=== PATIENT | female | born 1950 | race Caucasian/White ===

== ENCOUNTER 2020-04-06 13:30 | Outpatient (CLI) | payer MEDICARE, SELFPAY ==
--- NOTE | 2020-04-06 14:32 | PFTS_ITS ---
Date of Study:04/06/20 Date of Dictation: MECHANICS: Forced vital capacity (FVC) is reduced. Forced expiratory volume in one second (FEV1) is reduced. FEV1/FVC is normal. FLOW VOLUME LOOP: Narrow. LUNG VOLUMES: Total lung capacity (TLC) is normal. Residual volume (RV) is . DIFFUSING CAPACITY FOR CARBON MONOXIDE: Mildly reduced. INTERPRETATION: The pulmonary function tests are consistent with mild restriction. There is no significant postbronchodilator response. Lung volumes are normal. Gas exchange (DLCO) is mildly reduced. MTDD
== END 2020-04-06 13:31 | disposition home or self-care (01) ==
LOC: RT 13:33
PROVIDERS: PCP Family Medicine; Visit Provider Family Medicine
DX: J44.9 Chronic obstructive pulmonary disease, unspecified (principal)
CPT/HCPCS: 94060; 94726; 94729; J7611

== ENCOUNTER 2020-05-01 01:02 | Inpatient (IN) | payer MEDICARE, SELFPAY ==
[2020-05-01] VITALS (99 sets, daily range): BP systolic 103–182; BP diastolic 45–99; PULSE 80–139; RESP 14–31; TEMP 36.3–36.8; O2SAT 81–100; BMI 29.1
--- NOTE | 2020-05-01 01:08 | ECG_ITS ---
[facility] Test Date: 2020-05-01 Pat Name: Suki Gates Department: Room: Gender: Female Internal Medicine Hospitalist: : 1950 Requested By: Edilson Zafar Order Number: [id number] Tameka MD: Laureano Dumont M.D. Measurements Intervals [place] Rate: 114 P: 56 [place]: 124 QRS: 39 QRSD: 140 T: 203 QT: 375 QTc: 517 Interpretive Statements SINUS TACHYCARDIA WITH OCCASIONAL VENTRICULAR PREMATURE COMPLEXES WITH OCCASIONAL SUPRAVENTRICULAR PREMATURE COMPLEXES LEFT BUNDLE BRANCH BLOCK [120+ ms QRS DURATION, 80+ ms Q/S IN V1/V2, 85+ ms R IN I/aVL/V5/V6] No previous ECG available for comparison Electronically Signed On 05-02-2020 16:23:18 CDT by Laureano Dumont M.D. [id number]
--- NOTE | 2020-05-01 01:09 | W.ED.SOB ---
HPI - SOB/Dyspnea General: Chief Complaint: General Medical Stated Complaint: RESP DISTRESS Time Seen by Provider: 05/01/20 01:03 Source: EMS Mode of arrival: EMS Limitations: altered mental status History of Present Illness: HPI Narrative: 69-year-old female who has a history of COPD brought in by EMS for a severe COPD dating attack. Per EMS patient's states that she has been having shortness of breath just before calling. When EMS arrived she is in severe distress. Patient given Solu-Medrol in route. Patient's currently quite tachypneic and unable to speak at this time she will shake her head to me but is in severe distress. I had respiratory at bedside place patient on BiPAP. Per EMS states she is had no cough or fever and this happened suddenly. MD elicited complaint: shortness of breath Pertinent past history: COPD Review of Systems General: Reports: ROS unobtainable due to medical condition Physical Exam Const: COMMON NORMALS: negative for patient oriented x3 GENERAL APPEARANCE: in distress and ill appearing HENMT: COMMON NORMALS: normocephalic and atraumatic HEAD & SCALP: normocephalic and atraumatic Eye: COMMON NORMALS: Equal, round and reactive pupils present and EOMs intact bilaterally PUPIL: Yes Equal, round and reactive pupils present Neck/C-Spine: COMMON NORMALS: full ROM and supple Chest: COMMONS NORMALS: normal inspection of the chest and normal palpation of entire chest wall Resp: EFFORT & INSPECTION: Yes tachypneic, Yes respiratory distress and Yes uses accessory muscles AUSCULTATION: wheezes and diminished lung sounds Cardio: COMMON NORMALS: regular rhythm and No murmurs present (Cardio) RATE: tachycardic RHYTHM: regular rhythm GI: COMMON NORMALS: Normal to inspection, nondistended, normoactive bowel sounds present, Soft to palpation, non-tender and no masses PALPATION: Yes Soft to palpation Extremity: COMMON NORMALS: normal to inspection and full ROM Neuro: COMMON NORMALS: negative for patient oriented x3 Psych: COMMON NORMALS: mental status grossly normal and cooperative; negative for Normal thought process present THOUGHT PROCESS: abnormal Skin: COMMON NORMALS: no rashes or lesions noted and no wounds GENERAL SKIN EXAM: no rashes or lesions noted Course Vital Signs: Vital signs: Vital Signs Pulse Rate 115 H 05/01/20 01:15 Respiratory Rate 25 H 05/01/20 01:15 Blood Pressure 130/72 05/01/20 01:03 Pulse Oximetry 94 05/01/20 01:15 MDM - SOB/Dyspnea MDM Narrative: Medical decision making narrative: Suki presents here with respiratory distress likely from COPD versus pneumonia. X-ray does have an atypical appearance and will get blood cultures and give antibiotics. Also will test for coronavirus. Patient is improving here on BiPAP and will admit to the ICU. I spoke to hospitalist who will admit. Lab Data: Labs: Lab Results 05/01/20 05/01/20 05/01/20 Range/Units 01:10 01:12 01:12 WBC 12.7 H (4.0-10.0) 10^3/ uL RBC 4.42 (4.1-5.3) 10^6/u L Hgb 12.3 (11.5-15.3) g/dL Hct 40.8 (37.0-47.0) % MCV 92.3 (81-99) fL MCH 27.8 L (28.0-34.0) pg MCHC 30.1 (30.0-36.0) g/dL RDW 13.5 (12.1-15.1) % Plt Count 361 (130-400) 10^3/c mm MPV 10.6 H (7.4-10.4) fL Neut % (Auto) 35.4 % Lymph % (Auto) 51.2 % Russell % (Auto) 5.8 % Eos % (Auto) 6.5 % Baso % (Auto) 0.9 % Neut # (Auto) 4.49 (1.8-7.7) 10^3/u L Lymph # (Auto) 6.5 H (0.8-4.8) 10^3/u L Russell # (Auto) 0.7 (0.2-0.9) 10^3/u L Eos # (Auto) 0.8 (0.0-0.8) 10^3/u L Baso # (Auto) 0.1 (0.0-0.1) 10^3/u L Nucleated RBC % (a uto) 0 % Nucleated RBCs # 0.0 /100WBC PT 12.80 (10.5-13.3) SECO NDS INR 0.94 (0.8-1.2) Specimen Type Arterial Sample Site Radial, right ABG pH 7.19 L (7.35-7.45) ABG pCO2 47.3 H (35-45) mmHg ABG pO2 95.4 (80.0-100.0) mmH g ABG HCO3 18.1 L (22-26) mmol/L ABG Base Excess -10.0 L (-2.0-2.0) mmol/ L Jhony Test Pos Hematocrit 39.9 (37-47) % Hgb O2 Saturation 94.5 L (95-100) % Carboxyhemoglobin 0.5 (0.4-20.1) %THgb Methemoglobin 0.8 (0.4-1.5) % Total Hemoglobin 13.0 (12-16) g/dL O2 Delivery Device Bipap FiO2 60.0 % Biological Inspector ID [email or web address] Sodium (136-145) mmol/L Potassium (3.5-5.1) mmol/L Chloride (98-107) mmol/L Carbon Dioxide (22-29) mmol/L Anion Gap (5-19) BUN (8-23) mg/dL Creatinine (0.5-0.9) mg/dL GFR Calculation (90-130) mL/min Glucose (65-115) mg/dL Calculated Osmolal ity (285-295) mOsm/k g Calcium (8.5-10.5) mg/dL Total Bilirubin (0.15-1.2) mg/dL AST (0-32) U/L ALT (0-33) U/L Alkaline Phosphata se (35-105) IU/L NT-Pro-B Natriuret Pep (0-125) pg/mL Total Protein (6.6-8.7) g/dL Albumin (3.5-5.2) g/dL Globulin (1.3-4.6) g/dL 05/01/20 Range/Units 01:12 WBC (4.0-10.0) 10^3/ uL RBC (4.1-5.3) 10^6/u L Hgb (11.5-15.3) g/dL Hct (37.0-47.0) % MCV (81-99) fL MCH (28.0-34.0) pg MCHC (30.0-36.0) g/dL RDW (12.1-15.1) % Plt Count (130-400) 10^3/c mm MPV (7.4-10.4) fL Neut % (Auto) % Lymph % (Auto) % Russell % (Auto) % Eos % (Auto) % Baso % (Auto) % Neut # (Auto) (1.8-7.7) 10^3/u L Lymph # (Auto) (0.8-4.8) 10^3/u L Russell # (Auto) (0.2-0.9) 10^3/u L Eos # (Auto) (0.0-0.8) 10^3/u L Baso # (Auto) (0.0-0.1) 10^3/u L Nucleated RBC % (a uto) % Nucleated RBCs # /100WBC PT (10.5-13.3) SECO NDS INR (0.8-1.2) Specimen Type Sample Site ABG pH (7.35-7.45) ABG pCO2 (35-45) mmHg ABG pO2 (80.0-100.0) mmH g ABG HCO3 (22-26) mmol/L ABG Base Excess (-2.0-2.0) mmol/ L Jhony Test Hematocrit (37-47) % Hgb O2 Saturation (95-100) % Carboxyhemoglobin (0.4-20.1) %THgb Methemoglobin (0.4-1.5) % Total Hemoglobin (12-16) g/dL O2 Delivery Device FiO2 % Biological Inspector ID Sodium 141 (136-145) mmol/L Potassium 3.6 (3.5-5.1) mmol/L Chloride 106 (98-107) mmol/L Carbon Dioxide 21 L (22-29) mmol/L Anion Gap 17.6 (5-19) BUN 19 (8-23) mg/dL Creatinine 1.1 H (0.5-0.9) mg/dL GFR Calculation 49.4 L (90-130) mL/min Glucose 390 H (65-115) mg/dL Calculated Osmolal ity 305 H (285-295) mOsm/k g Calcium 8.8 (8.5-10.5) mg/dL Total Bilirubin 0.5 (0.15-1.2) mg/dL AST 18 (0-32) U/L ALT 11 (0-33) U/L Alkaline Phosphata se 92 (35-105) IU/L NT-Pro-B Natriuret Pep 2532 H (0-125) pg/mL Total Protein 6.4 L (6.6-8.7) g/dL Albumin 4.2 (3.5-5.2) g/dL Globulin 2.2 (1.3-4.6) g/dL Imaging Data^: CXR: Radiologist's impression: [address] [place] [address] XRay Report Signed Patient: Suki Gates Unit #: [id number] : 1950 Age/Sex: 69 / F ADM Date: 05/01/20 Loc: ER Room/Bed: Attending Dr: Ordering Provider/Ordering MD: Edilson Zafar MD Date of Service: 05/01/20 Procedure(s): XR chest 1V portable [id number] Accession Number(s): [id number] Report Number: [id number] PROCEDURE INFORMATION: Exam: XR Chest, 1 View Exam date and time: 05/01/2020 1:30 AM Age: 69 years old Clinical indication: Dyspnea; Additional info: SOB TECHNIQUE: Imaging protocol: XR of the chest Views: 1 view. COMPARISON: No relevant prior studies available. FINDINGS: Lungs: There is ill-defined reticular nodular opacity diffusely bilaterally. There is partial obscuration of the bilateral hemidiaphragms. Pleural space: There is blunting the left lateral costophrenic sulcus. Heart/Mediastinum: Cardiomediastinal contours are unremarkable. Bones/joints: Bones are unremarkable. Other findings: There is no pneumothorax. XR/XR chest 1V portable [id number] IMPRESSION: 1. Nonspecific bilateral pulmonary opacity. Possible pulmonary edema, atypical infection or interstitial disease. 2. Left pleural effusion. EKG Data^: EKG 1: Attestation: I personally reviewed and interpreted this EKG as follows: EKG Interpretation Date: 05/01/20 EKG interpretation time: 01:25 Interpretation: sinus tach hr [address] or t wave abnormalities lbbb qrs 140 qtc 442 Critical Care Time Critical Care Time: Critical Care Time: Yes Total Critical Care Time: 35 Attestation: This case had a high probability of a clinically significant, sudden, or life threatening deterioration of this patient's condition which required my full and direct attention, intervention and personal management. Discharge Plan Discharge Patient Disposition: Admitted As Inpatient Clinical Impression: Respiratory distress, COPD exacerbation Condition: Stable Referrals: Gregory Barksdale Jr, MD [Primary Care Provider] - Coding Level of Care Code ED Net Developer Software Engineer C for Chg Fwd Exam Comprehensive
[2020-05-01] MEDS: ipratropium-albuterol 3 mL Neb INHALATION ×4 (01:14→20:09)
[2020-05-01 01:18] LABS: Basophils # 0.1 10^3/uL (0.0-0.1); Basophils % 0.9 %; Eosinophils # 0.8 10^3/uL (0.0-0.8); Eosinophils % 6.5 %; Hematocrit 40.8 % (37.0-47.0); Hemoglobin 12.3 g/dL (11.5-15.3); Lymphocytes # 6.5 10^3/uL (0.8-4.8); Lymphocytes % 51.2 %; Mean Corpuscular HGB Conc 30.1 g/dL (30.0-36.0); Mean Corpuscular Hemoglobin 27.8 pg (28.0-34.0); Mean Corpuscular Volume 92.3 fL (81-99); Mean Platelet Volume 10.6 fL (7.4-10.4); Monocytes # 0.7 10^3/uL (0.2-0.9); Monocytes % 5.8 %; Neutrophils # 4.49 10^3/uL (1.8-7.7); Neutrophils % 35.4 %; Nucleated Red Blood Cells % 0 %; Platelet Count 361 10^3/cmm (130-400); Positive M 1; Red Blood Count 4.42 10^6/uL (4.1-5.3); Red Cell Distribution Width 13.5 % (12.1-15.1); White Blood Count 12.7 10^3/uL (4.0-10.0)
[2020-05-01 01:19] LABS: ABG PCO2 47.3 mmHg (35-45); ABG PH Result 7.19 (7.35-7.45); Arterial Blood Gas Hematocrit 39.9 % (37-47); Blood Gas Allen Test Pos; Blood Gas Sample Site Radial, right; Blood Gas Sample Type Arterial; Carboxyhemoglobin 0.5 %THgb (0.4-20.1); HCO3 ABG 18.1 mmol/L (22-26); HGB O2 Sat 94.5 % (95-100); Methemoglobin 0.8 % (0.4-1.5); Oxygen Device BIPAP; PO2 ABG 95.4 mmHg (80.0-100.0)
[2020-05-01 01:33] LABS: INR 0.94 (0.8-1.2)
[2020-05-01 01:43] LABS: Slide Review Slide Review Perform
[2020-05-01 01:49] LABS: Alanine Aminotransferase 11 U/L (0-33); Albumin Level 4.2 g/dL (3.5-5.2); Alkaline Phosphatase 92 IU/L (35-105); Anion Gap 17.6 (5-19); Aspartate Amino Transferase 18 U/L (0-32); Blood Urea Nitrogen 19 mg/dL (8-23); Calcium 8.8 mg/dL (8.5-10.5); Carbon Dioxide 21 mmol/L (22-29); Chloride 106 mmol/L (98-107); Globulin 2.2 g/dL (1.3-4.6); Glomerular Filtration Rate 49.4 mL/min (90-130); Glucose 390 mg/dL (65-115); NT Pro B Type Natriuretic Pept 2532 pg/mL (0-125); Osmolality Calculated 305 mOsm/kg (285-295); Potassium 3.6 mmol/L (3.5-5.1); Sodium 141 mmol/L (136-145); Total Bilirubin 0.5 mg/dL (0.15-1.2); Total Protein 6.4 g/dL (6.6-8.7)
[2020-05-01] MEDS: insulin regular-human 100 units/1 mL 5 UNIT IVP (02:00)
[2020-05-01] MEDS: piperacillin-tazobactam 3.375 GM in sodium chloride 0.9% (plus) 50 ML IV ×3 (03:18→20:05)
--- NOTE | 2020-05-01 03:20 | PC.NURSE ---
i have reviewed assessment and agree
[2020-05-01] MEDS: FUROsemide 10 mg/mL SDV 4mL 40 MG IVP ×2 (03:21→17:01)
[2020-05-01] MEDS: sodium chloride 0.9% 1,000 ML 999 ML IV (04:00)
[2020-05-01] MEDS: vancomycin 1,000 MG in sodium chloride 0.9% 250 ML 250 MG IV (04:20)
--- NOTE | 2020-05-01 04:30 | P.HP_ITS ---
Providers/Chief Complaint Admitting Physician: Guillaume Ramirez Primary Care Provider: Gregory Barksdale Jr, MD Chief Complaint: RESP DISTRESS History of Present Illness Suki Gates is a 69 year old lady with mild restrictive lung disease, insomnia, recently quit smoking, was brought to emergency department for evaluation due to progressive shortness of breath, and subsequently also acute encephalopathy, decreased responsiveness. She reports last night she was feeling more short of breath than usual, and used her inhaler. She reports that she gets wheezing intermittently, although also recently her sleep medications have been changed, and she reports that her tells her that after taking Ambien and trazodone her breathing usually becomes more relaxed at night, and wheezing resolves. She reports that she did so last night also, however, noticed that her breathing actually progressively got worse, and subsequently she had decreased responsiveness, confusion. EMS was called. She was noted to be significantly hypoxic, was started on nonrebreather mask initially, and ER started on BiPAP support. With noted pulmonary edema/scattered infiltrates on chest x-ray. With combined respiratory and metabolic acidosis on ABG. Mild leukocytosis of 12.7. Sinus tachycardia on presentation. She denies any chest pain. She has been having some mild non-productive cough. She says that recently she has been working out in a public gym. She says she would take hours where there would be fewer people. Would wiped out and equipment before hand. Also recently had a long drive to and [place] from [place]. In ER she was started on BiPAP support, received a dose of IV Lasix, started on empiric antibiotics. She is doing better. Currently weaned down to 10 L on nonrebreather mask. She is awake, alert, oriented, with full insight currently. Daughter is at bedside. Both in good spirits. Review of Systems Const: Denies: fever(s), chills, body aches or malaise Eyes: Denies: change in vision or eye redness ENMT: Denies: throat pain, oral sores or ear or mastoid pain Card: Denies: chest pain, edema, pre-syncope or dyspnea on exertion Resp: Reports: dyspnea and non-productive cough; Denies: productive cough, change in phlegm color or hemoptysis GI: Denies: abdominal pain, nausea, vomiting, diarrhea, constipation, hematochezia or melena : Denies: flank pain, urinary frequency or hematuria Musc: Denies: back pain, joint swelling or joint redness Skin/Breast: Denies: rash, sores or new lesions Neuro: Denies: headache(s), numbness in extremities, weakness in extremities, dizziness, confusion or seizure-like activity Endo: Denies: polyuria or polydipsia Max/Lymph: Denies: easy bleeding or purpura All/Imm: Denies: urticaria, throat swelling or tongue swelling Medications/Allergies Allergies Allergy/AdvReac Type Severity Reaction Status Date / Time No Known Allergies Allergy Verified 05/01/20 01:15 PFSH Acute PFSH: Medical History (Updated 05/01/20 @ 08:37 by Guillaume Ramirez MD) Former smoker Insomnia Restrictive lung disease Surgical History History of colonoscopy Family History Mother Congestive heart failure Social History Smoking and tobacco status: former smoker Quit status (tobacco): has quit using tobacco Former quit date comment: 3 months ago Alcohol intake: never Substance/Drug Use: never Lives independently: Yes Household members: spouse Marital status: Current occupational status: retired Vitals/I&O/Wt Last Vital Signs Pulse 99 05/01/20 03:19 Resp 28 H 05/01/20 03:19 BP 120/63 05/01/20 03:19 Pulse Ox 99 05/01/20 03:19 Weight last 48 hrs Weight 79.379 kg Physical Exam Const: COMMON NORMALS: no acute distress and patient oriented x3 NUTRITIONAL APPEARANCE: overweight HENMT: COMMON NORMALS: oropharynx normal Neck/C-Spine: COMMON NORMALS: no JVD Resp: COMMON NORMALS: normal respiratory effort AUSCULTATION: rales Cardio: COMMON NORMALS: no JVD, regular rhythm, S1 normal heart sound present, S2 normal heart sound present and No murmurs present (Cardio) RHYTHM: regular rhythm HEART SOUNDS: S1 normal heart sound present and S2 normal heart sound present GI: COMMON NORMALS: Normal to inspection, nondistended, normoactive bowel sounds present, Soft to palpation and non-tender PALPATION: Yes Soft to palpation Extremity: COMMON NORMALS: no joint enlargement and no pedal edema Neuro: COMMON NORMALS: patient oriented x3 and moves all extremities Skin: COMMON NORMALS: no rashes or lesions noted GENERAL SKIN EXAM: no rashes or lesions noted Data : 05/01/20 01:12 05/01/20 01:12 Micro: Microbiology 05/01/20 03:00 Blood Culture - Preliminary Blood SPECIMEN COLLECTED 05/01/20 01:12 Blood Culture - Preliminary Blood SPECIMEN COLLECTED A&P Assessment and plan (1) Acute on chronic respiratory failure with hypoxia and hypercapnia: Acute respiratory failure with hypoxia and hypercapnia. Very hypoxic at home. Per and respiratory distress. EMS had to start her on nonrebreather. In ER started on BiPAP support. Received Lasix, empiric antibiotics. Showed significant improvement, during my visit already was transitioned to nonrebreather, and saturating 100%. Rate decreased down to 8 L/min. Requested repeat ABG. Appears to be in congestive heart failure, with pulmonary congestion and edema, elevated BNP. Ordered troponin EKG series to rule out acute ischemia as the cause. Since her mental status now significantly improved, she is able to provide her history. Her daughter is by the bedside corroborating her story. She denies any chest pain or pressure. Got more short of breath over the evening, took inhaler, and subsequently took her sleep medications in preparation closely. Her then noticed she was not breathing right, becoming more short of breath, and respiratory distress, and confused/less responsive. She does report occasionally previously being noticed by her that she does not breathe well. She says that this has improved since she started on s leep medications with Ambien and trazodone. Previously also on Klonopin, but this was discontinued. If sleep apnea is present, some of the pulmonary edema may be explained by this as well. Appears to also have COPD exacerbation with some cough, although is not particularly productive of sputum. There is still also possible underlying pneumonia, with bilateral infiltrates. Possibly atypical. For now will provide empiric coverage with antibiotics. Check rapid flu, COVID-19. Collect sputum fo r culture if possible. Bacterial antigens. MRSA PCR. Blood culture collected. Appears to have combination respiratory and metabolic acidosis. Possibly sepsis, with lactic acidosis of 4. For COPD exacerbation received a dose of steroids in EMS on the way here. We will continue Solu-Medrol. Continue antibiotics as above. Breathing treatments. Given sinus tachycardia, hypoxic respiratory failure, recent prolonged car trip to a casino, dicussed with her and daughter that for now until she is stable enough to have chest imaging to exclude PE will be empirically enticoagulated with Lovenox. Discussed risks of bleeding vs risks of untreated PE. Both patient and daughter agreeable at this time. Discussed her condition and further assessment and plan and both verbalized understanding and agreement. All questions answered to their satisfaction. Status: Acute (2) COPD exacerbation: As above. Status: Acute (3) Congestive heart failure: Appears to be in congestive heart failure with congestive changes on chest x-ray, pulmonary edema, elevated BNP in the setting of near normal renal function. No known prior congestive heart failure in herself, but does report multiple instances in her family. As above requested troponin EKG to rule out acute ischemia. Has no chest pain. Assess TTE. Continue Lasix. Additional evaluation depending on findings. Status: Acute (4) Insomnia: Takes Ambien, trazodone. Previously also taking Klonopin, says stopped taking this currently. Discussed with her concern of multiple medications used for sleep, which can also affect mental status. Given noticed that when she does not take medications sometimes breathing becomes irregular, discussed would benefit from a sleep study. She and daughter verbalized understanding. Status: Acute (5) Restrictive lung disease: Noted on last PFT, mild pulmonary restriction. Consider additional outpatient follow-up. Status: Acute (6) Metabolic acidosis: Lactic acidosis, LA 4. Difficult to say exact cause. Concern for possible hypoperfusion, perhaps secondary to hypoxia, as well as congestive heart failure. Assessment and treatment as above. Possible severe sepsis se condary to pneumonia, although otherwise has no fever, only dry cough. Reflex lactate not yet resulted. Did receive a fluid bolus on presentation, however, will limit any further fluids given congestive heart failure, pulmonary congestive changes and edema. Status: Acute (7) Respiratory acidosis: COPD exacerbation, suspect perhaps also degree of hypoventilation secondary to sleep medications. As above. Status: Acute (8) Acute kidney injury: Mild acute kidney injury. Creatinine up to 1.1. Possibly secondary to acute CHF. Monitor for now. Does have hyperglycemia is on presentation. Will assess for possible diabetes due to which may be predisposed to CKD. Status: Acute (9) Lactic acid acidosis: As above. Status: Acute (10) Hyperglycemia: Does not have diabetes. On presentation with noted hyperglycemia, glucose 390. Concern for possible undiagnosed diabetes. Did receive a dose of steroid IV on the way to the hospital. We will check A1c. Mild insulin sliding scale added due to severity of hyperglycemia. Consistent carbohydrate diet. For now clear liquids due to respiratory failure. Status: Acute Additional A&P Information Quit smoking 3 months ago. Possible sleep apnea: Reports occasionally, prior to starting sleep medications, was having episodes where she would stop breathing at night per her . May benefit from outpatient sleep study. Patient daughter verbalized understanding. Attestations Medical Necessity Statement*: Admission of over 2 midnights is going to needed for assessment management of acute respiratory failure with hypoxia, hypercapnia, acute CHF, pneumonia, COPD exacerbation, metabolic acidosis, possible sepsis, mild acute kidney injury, and other problems outlined above. Coding Level of Care Code Acute Crisis Manager for [facility] Fwd Exam Comprehensive Diagnoses Acute on chronic respiratory failure with hypoxia and hypercapnia J96.21; J96.22 COPD exacerbation J44.1 Congestive heart failure I50.9 Insomnia G47.00 Restrictive lung disease J98.4 Metabolic acidosis E87.2 Respiratory acidosis E87.2 Acute kidney injury N17.9 Lactic acid acidosis E87.2 Hyperglycemia R73.9
--- NOTE | 2020-05-01 05:03 | PC.NURSE ---
indwelling gannon request denied due to pt's improved mentation and high risk of infection. Pt able to ambulate to commode with assist
--- NOTE | 2020-05-01 05:22 | PC.NURSE ---
pt mentation status improved from unresponsive to A&O x3
--- NOTE | 2020-05-01 05:40 | ECG_ITS ---
[facility] Test Date: 2020-05-01 Pat Name: Suki Gates Department: Room: ICU02 Gender: Female Healthcare Specialist: : 1950 Requested By: Guillaume Ramirez Order Number: [id number] Reading MD: Laureano Dumont M.D. Measurements Intervals [place] Rate: 96 P: 35 [place]: 135 QRS: -4 QRSD: 140 T: 114 QT: 408 QTc: 518 Interpretive Statements SINUS RHYTHM LEFT BUNDLE BRANCH BLOCK [120+ ms QRS DURATION, 80+ ms Q/S IN V1/V2, 85+ ms R IN I/aVL/V5/V6] Compared to ECG 05/01/2020 01:25:27 Sinus tachycardia no longer present Ventricular premature complex(es) no longer present Electronically Signed On 05-02-2020 16:23:42 CDT by Laureano Dumont M.D. [id number]
[2020-05-01] MEDS: enoxaparin 80 mg/0.8 mL Syringe SUBCUT ×2 (07:05→18:11)
--- NOTE | 2020-05-01 07:39 | ECG_ITS ---
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 Measurements Intervals [place] Rate: 72 P: AK: -1 QRS: -29 QRSD: 126 T: -28 QT: 466 QTc: 512 Interpretive Statements UNCERTAIN IRREGULAR RHYTHM BORDERLINE LEFT AXIS DEVIATION [QRS AXIS < -20] RIGHT BUNDLE BRANCH BLOCK [120+ ms QRS DURATION, UPRIGHT V1, 40+ ms S IN I/aVL/V4/V5/V6] WARNING: DATA QUALITY MAY AFFECT INTERPRETATION Compared to ECG 05/01/2020 06:16:30 Right bundle-branch block now present Sinus rhythm no longer present Left bundle-branch block no longer present Electronically Signed On 05-02-2020 16:28:22 CDT by Laureano Dumont M.D. [id number]
[2020-05-01 09:00] LABS: Glucose Point of Care 152 mg/dL (70-110)
[2020-05-01 09:32] LABS: Troponin(5th) Baseline 34 ng/L (0-10)
[2020-05-01 09:40] LABS: Estmated Average Glucose 108; Hemoglobin A1C 5.4 % (4.0-6.0)
[2020-05-01 11:08] LABS: Troponin 5 2HR 22.88 ng/L (0-10)
--- NOTE | 2020-05-01 11:39 | ECG_ITS ---
[facility] Test Date: 2020-05-01 Pat Name: Suki Gates Department: Room: ICU02 Gender: Female Flatbed Driver: : 1950 Requested By: Guillaume Ramirez Order Number: [id number] Reading MD: Laureano Dumont M.D. Measurements Intervals [place] Rate: 86 P: 36 OR: 139 QRS: 10 QRSD: 143 T: 266 QT: 433 QTc: 521 Interpretive Statements SINUS RHYTHM WITH OCCASIONAL SUPRAVENTRICULAR PREMATURE COMPLEXES LEFT BUNDLE BRANCH BLOCK [120+ ms QRS DURATION, 80+ ms Q/S IN V1/V2, 85+ ms R IN I/aVL/V5/V6] Compared to ECG 05/01/2020 07:59:52 Left bundle-branch block now present Right bundle-branch block no longer present Electronically Signed On 05-02-2020 16:29:07 CDT by Laureano Dumont M.D. [email or web address]/store/[id number]
[2020-05-01 12:11] LABS: Glucose Point of Care 137 mg/dL (70-110)
[2020-05-01 15:33] LABS: Troponin 5 6HR 20.37 ng/L (0-10)
--- NOTE | 2020-05-01 16:00 | PC.RESP ---
Pulmonary Rehab information sent to patient.
--- NOTE | 2020-05-01 16:01 | PC.RESP ---
Pulmonary Rehab information and maintaining smoking cessation information sent to patient.
[2020-05-01 17:26] LABS: Glucose Point of Care 155 mg/dL (70-110)
--- NOTE | 2020-05-01 21:00 | PC.NURSE ---
Received report from SYED Figueroa. Patient is resting comfortably. Vital signs stable. Bed in lowest position, call light in place. No concerns at this time.
[2020-05-01 21:46] LABS: Glucose Point of Care 144 mg/dL (70-110)
--- NOTE | 2020-05-01 23:11 | P.PN_ITS ---
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 Very hypoxic at home. Per and respiratory distress. EMS had to start her on nonrebreather. In ER started on BiPAP support. Received Lasix, empiric antibiotics. Showed significant improvement, during my visit already was transitioned to nonrebreather, and saturating 100%. Rate decreased down to 8 L/min. Requested repeat ABG. Appears to be in congestive heart failure, with pulmonary congestion and edema, elevated BNP. Ordered troponin EKG series to rule out acute ischemia as the cause. Since her mental status now significantly improved, she is able to provide her h istory. Her daughter is by the bedside corroborating her story. She denies any chest pain or pressure. Got more short of breath over the evening, took inhaler, and subsequently took her sleep medications in preparation closely. Her then noticed she was not breathing right, becoming more short of breath, and respiratory distress, and confused/less responsive. She does report occasionally previously being noticed by her that she does not breathe well. She says that this has improved since she started on sleep medications with Ambien and trazodone. Previously also on Klonopin, but this was discontinued. If sleep apnea is present, some of the pulmonary edema may be explained by this as well. Appears to also have COPD exacerbation with some cough, although is not particul charlene productive of sputum. There is still also possible underlying pneumonia, with bilateral infiltrates. Possibly atypical. For now will provide empiric coverage with antibiotics. Check rapid flu, COVID-19. Collect sputum for culture if possible. Bacterial antigens. MRSA PCR. Blood culture collected. Appears to have combination respiratory and metabolic acidosis. Possibly sepsis, with lactic acidosis of 4. For COPD exacerbation received a dose of steroids in EMS on the way here. We wi ll continue Solu-Medrol. Continue antibiotics as above. Breathing treatments. Given sinus tachycardia, hypoxic respiratory failure, recent prolonged car trip to a [employer], dicussed with her and daughter that for now until she is stable enough to have chest imaging to exclude PE will be empirically enticoagulated with Lovenox. Discussed risks of bleeding vs risks of untreated PE. Both patient and daughter agreeable at this time. Discussed her condition and further assessment and plan and both verbalized understanding and agreement. All questions answered to their satisfaction. Status: Acute (2) COPD exacerbation: As above. Status: Acute (3) Congestive heart failure: Appears to be in congestive heart failure with congestive changes on chest x-ray, pulmonary edema, elevated BNP in the setting of near normal renal fun ction. No known prior congestive heart failure in herself, but does report multiple instances in her family. As above requested troponin EKG to rule out acute ischemia. Has no chest pain. Assess TTE. Continue Lasix. Additional evaluation depending on findings. Status: Acute (4) Insomnia: Takes Ambien, trazodone. Previously also taking Klonopin, says stopped taking this currently. Discussed with her concern of multiple medications used for sleep, which can also affect mental status. Given noticed that when she does not take medications sometimes breathing becomes irregular, discussed would benefit from a sleep study. She and daughter verbalized understanding. Status: Acute (5) Restrictive lung disease: Noted on last PFT, mild pulmonary restriction. Consider additional outpatient follow-up. Status: Acute (6) Metabolic acidosis: Lactic acidosis, LA 4. Difficult to say exact cause. Concern for possible hypoperfusion, perhaps secondary to hypoxia, as well as congestive heart failure. Assessment and treatment as above. Possible severe sepsis secondary to pneumonia, although otherwise has no fever, only dry cough. Reflex lactate not yet resulted. Did receive a fluid bolus on presentation, however, will limit any further fluids given congestive heart failure, pulmonary congestive changes and edema. Status: Acute (7) Respiratory acidosis: COPD exacerbation, suspect perhaps also degree of hypoventilation secondary to sleep medications. As above. Status: Acute (8) Acute kidney injury: Mild acute kidney injury. Creatinine up to 1.1. Possibly secondary to acute CHF. Monitor for now. Does have hyperglycemia is on presentation. Will assess for possible diabetes due to which may be predisposed to CKD. Status: Acute (9) Lactic acid acidosis: As above. Status: Acute (10) Hyperglycemia: Does not have diabetes. On presentation with noted hyperglycemia, glucose 390. Concern for possible undiagnosed diabetes. Did receive a dose of steroid IV on the way to the hospital. We will check A1c. Mild insulin sliding scale added due to severity of hyperglycemia. Consistent carbohydrate diet. For now clear liquids due to respiratory failure. Status: Acute Additional A&P Information Quit smoking 3 months ago. Possible sleep apnea: Reports occasionally, prior to starting sleep medications, was having episodes where she would stop breathing at night per her . May benefit from outpatient sleep study. Patient daughter verbalized understanding. 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
[2020-05-02] VITALS (35 sets, daily range): BP systolic 83–138; BP diastolic 58–94; PULSE 74–121; RESP 13–35; TEMP 36.4–36.8; O2SAT 89–97
[2020-05-02] MEDS: piperacillin-tazobactam 3.375 GM in sodium chloride 0.9% (plus) 50 ML IV (03:00)
[2020-05-02 04:10] LABS: Hematocrit 34.9 % (37.0-47.0); Hemoglobin 10.8 g/dL (11.5-15.3); Lymphocytes # 0.5 10^3/uL (0.8-4.8); Lymphocytes % 7.2 %; Mean Corpuscular HGB Conc 30.9 g/dL (30.0-36.0); Mean Corpuscular Hemoglobin 27.6 pg (28.0-34.0); Mean Platelet Volume 11.2 fL (7.4-10.4); Monocytes # 0.2 10^3/uL (0.2-0.9); Nucleated Red Blood Cells % 0 %; Platelet Count 234 10^3/cmm (130-400); Red Blood Count 3.92 10^6/uL (4.1-5.3); Red Cell Distribution Width 13.8 % (12.1-15.1); White Blood Count 7.3 10^3/uL (4.0-10.0)
[2020-05-02] MEDS: ipratropium-albuterol 3 mL Neb INHALATION ×5 (04:14→23:47)
[2020-05-02 04:19] LABS: Add Urine Microscopic? YES; Bacteria Urine 1+; Bilirubin Urine Neg (NEGATIVE); Blood Urine Neg (Negative); Glucose Urine UA Norm (Normal); Ketones Urine Negative (Negative); Leukocyte Esterase Urine Negative (Negative); Nitrate Urine Negative (Negative); Protein Urine Neg (Negative); RBC Urine 0-4 /hpf (0-2); Specific Gravity, Urine 1.025 (1.005-1.030); Squamous Epithelial Cell Urine RARE (0-5); Urine Appearance SL Hazy (CLEAR); Urine Color Yellow (Yellow); Urobilinogen Urine Norm (Negative); WBC Urine 0-4 /hpf (0-5); pH Urine 5 (5-7)
[2020-05-02 04:47] LABS: Anion Gap 14.3 (5-19); Blood Urea Nitrogen 25 mg/dL (8-23); Calcium 8.3 mg/dL (8.5-10.5); Carbon Dioxide 24 mmol/L (22-29); Chloride 107 mmol/L (98-107); Glomerular Filtration Rate 49.4 mL/min (90-130); Glucose 154 mg/dL (65-115); Osmolality Calculated 294 mOsm/kg (285-295); Potassium 3.3 mmol/L (3.5-5.1); Sodium 142 mmol/L (136-145)
[2020-05-02] MEDS: FUROsemide 10 mg/mL SDV 4mL 40 MG IVP ×2 (04:50→15:04)
--- NOTE | 2020-05-02 05:03 | PC.NURSE ---
Notified Dr. Quiroz of potassium of 3.3. Dr. Quiroz to order K-rider and ok to give Lasix.
[2020-05-02] MEDS: potassium chloride ER 10 mEq Tablet 40 MEQ PO ×3 (05:26→20:17)
[2020-05-02 05:41] LABS: ABG PCO2 23.5 mmHg (35-45); ABG PH Result 7.56 (7.35-7.45); Arterial Blood Gas Hematocrit 36.7 % (37-47); Base Excess ABG 0.2 mmol/L (-2.0-2.0); Blood Gas Allen Test Pos; Blood Gas Sample Type Arterial
[2020-05-02 05:43] LABS: Oxygen Device NC
[2020-05-02] MEDS: enoxaparin 80 mg/0.8 mL Syringe SUBCUT ×2 (06:11→18:10)
--- NOTE | 2020-05-02 06:27 | USCV_ITS ---
Suki Gates Age: 69 Gender: F : 1950 Exam Date: 05/02/2020 13:33 Ordering Phys: Guillaume Ramirez MD Technologist: Anibal Godinez Exam Location: [facility] [place] Indication: BP: 116 / 83 HR: Rhythm: Sinus Technical Quality: Adequate MEASUREMENTS (Male / Female) Normal Values 2D ECHO LV Diastolic Diameter PLAX 4.5 cm 4.2 - 5.9 / 3.9 - 5.3 cm LV Systolic Diameter PLAX 4.0 cm IVS Diastolic Thickness 1.1 cm 0.6 - 1.0 / 0.6 - 0.9 cm IVS Systolic Thickness 1.4 cm LVPW Diastolic Thickness 1.1 cm 0.6 - 1.0 / 0.6 - 0.9 cm LVPW Systolic Thickness 1.4 cm LVOT Diameter 2.0 cm LV Ejection Fraction 2D Teich 22.1 % LV Ejection Fraction MOD 2C 20.0 % LV Ejection Fraction 2C AL 19.5 % LA Diameter 4.6 cm LA Width 4.0 cm LA Height 5.0 cm RA Width 4.3 cm RA Height 5.3 cm M-MODE LV Diastolic Diameter MM 6.0 cm 4.2 - 5.9 / 3.9 - 5.3 cm LV Systolic Diameter MM 5.7 cm LV Ejection Fraction MM Teich 12.5 % IVS Diastolic Thickness MM 7.1 cm 0.6 - 1.0 / 0.6 - 0.9 cm IVS Systolic Thickness MM 1.4 cm LVPW Diastolic Thickness MM 0.8 cm 0.6 - 1.0 / 0.6 - 0.9 cm LVPW Systolic Thickness MM 1.5 cm RV Diastolic Diameter MM 1.8 cm Aortic Annulus Diameter 3.6 cm LA Ao Ratio MM 1.3 MV E Point Septal Separation 2.5 cm DOPPLER AV Peak Velocity 97.0 cm/s LVOT Peak Velocity 81.0 cm/s AV Area Cont Eq vti 3.2 cm squared AV Area Cont Eq pk 2.8 cm squared MV Area PHT 3.6 cm squared Mitral E to A Ratio 2.0 MV E' Velocity 3.0 cm/s Mitral E to MV E' Ratio 16.5 Mitral E to LV E' Lateral Ratio 27.5 Mitral E to LV E' Septal Ratio 12.0 TR Peak Velocity 340.0 cm/s TR Peak Gradient 46.2 mmHg TV Peak E Velocity 102.0 cm/s Right Atrial Pressure 3.0 mmHg Pulmonary Artery Systolic Pressu 49.2 mmHg PV Peak Velocity 74.0 cm/s FINDINGS Left Ventricle Severe diffuse hypokinesia of the left ventricle with an ejection fraction of around 20%. Mildly dilated left ventricular cavity. Right Ventricle Normal right ventricular size and systolic function. Right Atrium Possibly of normal size Left Atrium Mildly increased left atrial size. Mitral Valve Thickened mitral valve. Moderate mitral annular calcification.moderate mitral valve regurgitation. Aortic Valve Thickened aortic valve. Tricuspid Valve Moderate tricuspid valve regurgitation. Pulmonic Valve No gross abnormalities noted Pericardium No pericardial effusion. Aorta Normal aortic annulus size. CONCLUSIONS Severe diffuse hypokinesia of the left ventricle with an ejection fraction of around 20%. Mildly dilated left ventricular cavity. Mildly increased left atrial size. Thickened mitral valve. Moderate mitral annular calcification. Thickened aortic valve. Moderate mitral and tricuspid regurgitation Mild pulmonary hypertension with an estimated pulmonary artery peak systolic pressure of 49 mmHg There are no intracardiac masses. There is no pericardial effusion. No previous study is available for comparison. Dr Nisha Rodriguez MD [facility] (Electronically Signed) Final Date: 02 May 2020 20:48 S
[2020-05-02 07:57] LABS: Glucose Point of Care 164 mg/dL (70-110)
--- NOTE | 2020-05-02 08:48 | USCV_ITS ---
Suki Gates Age: 69 Gender: F : 1950 Exam Date: 05/02/2020 13:46 Ordering Phys: Guillaume Ramirez MD Technologist: Anibal Godinez Exam Location: [facility] Indication: SWELLING HISTORY: swelling, bed stasis PROCEDURES: Bilaterally, the common femoral, superficial femoral, profunda femoral, popliteal, posterior tibial, greater saphenous veins, and the peroneal trunk were identified and interrogated in the standard fashion. These veins were found to be easily compressible with spontaneous blood flow. FINDINGS: No DVT or superficial thrombus seen in any vessel visualized. The veins were found to be easily compressible with spontaneous blood flow. Non pulsatile flow pattern. CONCLUSIONS No evidence of DVT in the above-mentioned identifiable veins. Dr Nisha Rodriguez MD [facility] (Electronically Signed) Final Date: 02 May 2020 20:51 S
--- NOTE | 2020-05-02 10:45 | PM.PN ---
Subjective Subjective: Interval history: Patient reports feeling better. Reports that prior to admission she became short of breath when laying down and she sat up and after that next thing she remembers to wake up in the hospital. Denies previous history of heart disease. Reports sometimes her legs get swollen with prolonged trips but otherwise she does not have lower extremity edema. She denies chest pain. Denies previous history of diabetes. She appears to have frequent ectopic beats and atrial arrhythmia on telemetry. Reports that prior to Ambien was prescribed she was using Ativan to help with sleep. Reports that when she first tried trazodone it made her feel like she is on drugs and she now started taking only half a pill. Reports that ever since she stopped smoking 3 months ago she has been having deep cough but otherwise without significant phlegm production. Vitals/I&O/Wt Last Vital Signs Temp 98.1 F 05/02/20 08:46 Pulse 98 05/02/20 09:05 Resp 20 H 05/02/20 08:54 BP 103/62 05/02/20 07:00 Pulse Ox 94 05/02/20 08:54 05/01/20 05/02/20 05/02/20 22:59 06:59 14:59 Intake Total 610 / 2260 50 / 2310 Output Total 800 / 2100 Balance 610 / 960 -750 / 210 Weight last 48 hrs Weight 76.204 kg Weight 79.379 kg Physical Exam Const: COMMON NORMALS: no acute distress and patient oriented x3 Resp: COMMON NORMALS: normal respiratory effort OTHER: Bibasilar Rales and overall decreased air movement. Cardio: COMMON NORMALS: regular rate, regular rhythm and S2 normal heart sound present RATE: regular rate RHYTHM: regular rhythm HEART SOUNDS: S2 normal heart sound present OTHER: No lower extremity edema, frequent ectopic beats. GI: COMMON NORMALS: Normal to inspection, nondistended, normoactive bowel sounds present, Soft to palpation and non-tender PALPATION: Yes Soft to palpation Neuro: COMMON NORMALS: patient oriented x3 and no focal motor deficits Data : 05/02/20 03:08 05/02/20 03:08 Micro: Microbiology 05/01/20 03:00 Blood Culture - Preliminary Blood NEGATIVE TO DATE 05/01/20 01:12 Blood Culture - Preliminary Blood NEGATIVE TO DATE A&P Assessment and plan (1) Acute on chronic respiratory failure with hypoxia and hypercapnia: significant phlegm production.Acute respiratory failure with hypoxia and hypercapnia. Very hypoxic at home. Per and respiratory distress. EMS had to start her on nonrebreather. In ER started on BiPAP support. Received Lasix, empiric antibiotics. Showed significant improvement, during my visit already was transitioned to nonrebreather, and saturating 100%. Rate decreased down to 8 L/min. Requested repeat ABG. Appears to be in congestive heart failure, with pulmonary congestion and edema, elevated BNP. Ordered troponin EKG series to rule out acute ischemia as the cause. Since her mental status now significantly improved, she is able to provide her history. Her daughter is by the bedside corroborating her story. She denies any chest pain or pressure. Got more short of breath over the evening, took inhaler, and subsequently took her sleep medications in preparation closely. Her then noticed she was not breathing right, becoming more short of breath, and respiratory distress, and confused/less responsive. She does report occasionally previously being noticed by her that she does not breathe well. She says that this has improved since she started on sleep medications with Ambien and trazodone. Previously also on Klonopin, but this was discontinued. If sleep apnea is present, some of the pulmonary edema may be explained by this as well. Appears to also have COPD exacerbation with some cough, although is not particularly productive of sputum. There is still also possible underlying pneumonia, with bilateral infiltrates. Possibly atypical. For now will provide empiric coverage with antibiotics. Check rapid flu, COVID-19. Collect sputum for culture if possible. Bacterial antigens. MRSA PCR. Blood culture collected. Appears to have combination respiratory and metabolic acidosis. Possibly sepsis, with lactic acidosis of 4. For COPD exacerbation received a dose of steroids in EMS on the way here. We will continue Solu-Medrol. Continue antibiotics as above. Breathing treatments. Given sinus tachycardia, hypoxic respiratory failure, recent prolonged car trip to a [employer], dicussed with her and daughter that for now until she is stable enough to have chest imaging to exclude PE will be empirically enticoagulated with Lovenox. Discussed risks of bleeding vs risks of untreated PE. Both patient and daughter agreeable at this time. Discussed her condition and further assessment and plan and both verbalized understanding and agreement. All questions answered to their satisfaction. Status: Acute (2) COPD exacerbation: As above. Currently not in exacerbation. Status: Acute (3) Congestive heart failure: Appears to be in congestive heart failure with congestive changes on chest x-ray, pulmonary edema, elevated BNP in the setting of near normal renal function. No known prior congestive heart failure in herself, but does report multiple instances in her family. As above requested troponin EKG to rule out acute ischemia. Has no chest pain. Assess TTE. Continue Lasix. Additional evaluation depending on findings. Status: Acute (4) Insomnia: Takes Ambien, trazodone. Previously also taking Klonopin, says stopped taking this currently. Discussed with her concern of multiple medications used for sleep, which can also affect mental status. Given noticed that when she does not take medications sometimes breathing becomes irregular, discussed would benefit from a sleep study. She and daughter verbalized understanding. Status: Acute (5) Restrictive lung disease: Noted on last PFT, mild pulmonary restriction. Consider additional outpatient follow-up. Status: Acute (6) Metabolic acidosis: Lactic acidosis, LA 4. Difficult to say exact cause. Concern for possible hypoperfusion, perhaps secondary to hypoxia, as well as congestive heart failure. Assessment and treatment as above. Possible severe sepsis secondary to pneumonia, although otherwise has no fever, only dry cough. Reflex lactate not yet resulted. Did receive a fluid bolus on presentation, however, will limit any further fluids given congestive heart failure, pulmonary congestive changes and edema. Status: Acute (7) Respiratory acidosis: COPD exacerbation, suspect perhaps also degree of hypoventilation secondary to sleep medications. As above. Status: Acute (8) Acute kidney injury: Mild acute kidney injury. Creatinine up to 1.1. Possibly secondary to acute CHF. Monitor for now. Does have hyperglycemia is on presentation. Will assess for possible diabetes due to which may be predisposed to CKD. Status: Acute (9) Lactic acid acidosis: As above. Status: Acute (10) Hyperglycemia: Does not have diabetes. On presentation with noted hyperglycemia, glucose 390. Concern for possible undiagnosed diabetes. Did receive a dose of steroid IV on the way to the hospital. We will check A1c. Mild insulin sliding scale added due to severity of hyperglycemia. Consistent carbohydrate diet. For now clear liquids due to respiratory failure. Status: Acute Additional A&P Information Quit smoking 3 months ago. Highly suspected recent acute coronary syndrome. Demand ischemia secondary to CHF felt less likely Hypokalemia Possible sleep apnea: Reports occasionally, prior to starting sleep medications, was having episodes where she would stop breathing at night per her . May benefit from outpatient sleep study. Patient daughter verbalized understanding. PLAN: Replete potassium and continue with Lasix Discontinue steroids and antibiotics for now. Continue monitoring. Repeat chest x-ray and BNP in a.m. Check magnesium level. Awaiting echocardiogram. Continue therapeutic anticoagulation for now. Awaiting COVID-19 test. Patient's oxygenation significantly improved after diuresis making PE highly unlikely. She is currently saturating 93% on room air. Discussed case with Dr. Rodriguez who will see patient in consultation. Attestations Medical Necessity Statement*: Patient with what appears to be acute coronary syndrome and heart failure requires close ICU monitoring and treatment. Time Spent in Patient Care: Greater than 35 minutes Coding Level of Care Code Acute Release Coordinator for Corky Tate Diagnoses Acute on chronic respiratory failure with hypoxia and hypercapnia J96.21; J96.22 COPD exacerbation J44.1 Congestive heart failure I50.9 Insomnia G47.00 Restrictive lung disease J98.4 Metabolic acidosis E87.2 Respiratory acidosis E87.2 Acute kidney injury N17.9 Lactic acid acidosis E87.2 Hyperglycemia R73.9
[2020-05-02 11:30] LABS: Glucose Point of Care 175 mg/dL (70-110)
[2020-05-02] MEDS: pantoprazole DR 40 mg Tablet PO ×2 (15:03→15:22)
[2020-05-02 17:50] LABS: Glucose Point of Care 170 mg/dL (70-110)
--- NOTE | 2020-05-02 18:39 | PM.CONSULT ---
Providers/Reason For Consult Consulting Physican/Specialty*: Brian Rodriguez MD/cardiology Reason for Consult*: Patient with a cardiac arrhythmia/congestive heart failure. Attending Physician: Jesse Zimmerman MD Primary Care Provider: Gregory Barksdale Jr, MD History of Present Illness History of Present Illness Suki Gates is a 69 year old female who was admitted to the hospital through the emergency room, where she presented with acute respiratory failure/altered mental status. She was found to have features of congestive heart failure. She also was found to have episodes of atrial fibrillation with rapid ventricular rate on the monitor. Cardiology consult is requested for further cardiac evaluation recommendations. This patient has no previous history for any cardiac illness. Since January of this year, she had episodes of shortness of breath. In between the spells, she has been fairly active, taking care of her . She also goes to the gym on a regular basis. On the night of her hospital admission, she was getting ready to go to bed. All of a sudden she became more short of breath. For that reason, she took 1 of her sleeping pill. According the patient, she does not recall the events after this. The next thing she remembers is that she is in the hospital. Based on the medical records and her 's description of the events, she went into respiratory distress and then shallow breathing. She almost quit breathing. called in the ambulance. She was found to be hypoxic, by the EMS. She was placed on a nonrebreather mask and was given IV steroids. She has been using inhalers at home. She has a history of smoking abuse. In the emergency room, she was found to be tachypneic. She was placed on BiPAP. She was given diuretics IV. Her symptoms gradually started subsiding. Currently she is off the BiPAP. Her oxygenation has significantly improved. She never had any chest pain. No history for coronary disease, myocardial infarction or congestive heart failure. She has a history of? Reactive airway disease and has been on bronchodilator treatment for a year or so. Since January of this year, she been having episodes of shortness of breath as mentioned above. She has no history for high blood pressure, diabetes or dyslipidemia. No history for CVA, peripheral artery disease, kidney disease, liver disease or bleeding disorders. She smokes half to 1 pack a day for the last more than 30 years. She quit smoking in January of this year. No alcohol abuse or any other substance abuse. Her mother, maternal grandmother, maternal grandfather and many of her maternal aunts had congestive heart failure. One of the sisters of her mom of congestive heart failure at the age of 16 ?. Other details are not known. Review of Systems Narrative: CONSTITUTIONAL: No fever or chills. EYES: No blurring of vision or other visual disturbances lately. ENT: No hoarseness of voice, auditory disturbances or sore throat. CARDIOVASCULAR: As mentioned above. RESPIRATORY: As mentioned above GASTROINTESTINAL: No hematemesis or melena. GENITOURINARY: No dysuria or hematuria. INTEGUMENTARY: No skin rashes or history of skin cancer. NEURO: Recent altered mental status as mentioned above PSYCHIATRIC: No history of psychosis or major depression. HEMATOLOGIC: No bleeding disorders or significant anemia. ENDOCRINE: No history of polyuria or polydipsia. MUSCULOSKELETAL: No recent joint pain or swelling. ALLERGY/IMMUNOLOGY: As mentioned above. Meds/Allergies Home Medications and Allergies Home Medications Medication Instructions Recorded Confirmed Last Taken Type lorazepam 0.5 mg PO PRN 05/02/20 Unknown History omeprazole 20 mg PO BID 05/02/20 05/02/20 Unknown History trazodone 50 mg PO BEDTIME 05/02/20 05/02/20 Unknown History zolpidem 10 mg PO BEDTIME 05/02/20 05/02/20 Unknown History Allergies Allergy/AdvReac Type Severity Reaction Status Date / Time No Known Allergies Allergy Verified 05/01/20 01:15 Current Medications Current Medications Generic Name Dose Route Start Last Admin Trade Name Freq PRN Reason Stop Dose Admin Albuterol/Ipratropium 3 ml 05/01/20 12:00 05/02/20 16:05 Duoneb INHALATION 3 ml Q4H.RESPIRATORY JESSICA Administration Enoxaparin Sodium 80 mg 05/01/20 07:00 05/02/20 18:10 Lovenox SUBCUT 80 mg Q12H JESSICA Administration Furosemide 40 mg 05/01/20 16:00 05/02/20 15:04 Lasix IVP 40 mg Q12H JESSICA Administration Insulin Aspart 0 unit 05/01/20 12:00 05/02/20 18:08 Novolog SUBCUT 2 unit TIDWM JESSICA Administration Protocol Pantoprazole Sodium 40 mg 05/02/20 15:15 05/02/20 15:22 Protonix PO 40 mg BID JESSICA Administration Potassium Chloride 40 meq 05/02/20 15:00 05/02/20 14:22 Klor-Con 10 PO 05/02/20 21:01 40 meq TID JESSICA Administration PFSH Acute PFSH: Medical History Acute congestive heart failure Former smoker Insomnia Restrictive lung disease Surgical History History of colonoscopy Family History Mother Congestive heart failure Social History Smoking and tobacco status: former smoker Quit status (tobacco): has quit using tobacco Former quit date comment: 3 months ago Alcohol intake: never Substance/Drug Use: never Lives independently: Yes Household members: spouse Marital status: Current occupational status: retired Vitals/I&O/Wt Last Vital Signs Temp 98.2 F 05/02/20 17:00 Pulse 111 H 05/02/20 17:00 Resp 25 H 05/02/20 17:00 BP 124/74 05/02/20 17:00 Pulse Ox 93 05/02/20 17:00 05/02/20 05/02/20 05/02/20 06:59 14:59 22:59 Intake Total 50 / 2310 Output Total 800 / 2100 1800 / 1800 Balance -750 / 210 -1800 / -1800 Weight last 48 hrs Weight 168 lb Weight 175 lb Physical Exam Narrative: EXAM NARRATIVE: GENERAL: The patient is alert and oriented times three. Not in any acute distress. HEENT: No significant pallor, icterus or lymphadenopathy. The pupils are reactant to light. Oral cavity: There are no mucous membrane lesions. Funduscopic examination: Fundus is not visualized NECK: Trachea appears to be central. No masses noted. No JVD or thyromegaly appreciated. No carotid bruit. RESPIRATORY: Chest is symmetrical. No intercostals muscle retraction or any accessory muscle activation. There is no chest wall tenderness. Breath sounds are heard bilaterally. Few fine rales at the bases BREASTS: Deferred. HEART: The PMI could not be palpated. First heart sound is variable. Second heart rate is normal. No S3. Short systolic murmur in the left sternal border. No diastolic murmurs. No pericardial rub. ABDOMEN: No vessel pulsations or distention. No tenderness. No organomegaly appreciated. No abdominal bruit. Bowel sounds are normally heard. : Deferred. RECTAL: Deferred. LYMPHATIC: No lymphadenopathy noted in the neck or groin. EXTREMITIES: No edema or cyanosis. No clubbing. The pulses are symmetrical bilaterally. The radial, femoral, dorsalis pedis and the posterior tibial pulses are palpated and found to be in good volume and amplitude. MUSCULOSKELETAL: No acute joint deformities or swelling SKIN: There are no significant scars or skin rash noted. NEUROPSYCHIATRIC: The patient is alert and oriented x3. Appears to be in a good mood. The higher functions are grossly within normal limits. No tremors or rigidity noted. Data Micro: Micro: Microbiology 05/01/20 03:00 Blood Culture - Pr eliminary Blood NEGATIVE TO RACHEL E 05/01/20 01:12 Blood Culture - Pr eliminary Blood NEGATIVE TO RACHEL E Imaging^: Echo: My impression: Severe diffuse hypokinesia of the left ventricle with an ejection fraction of around 20%. Mildly dilated left ventricular cavity. Mildly increased left atrial size. Thickened mitral valve. Moderate mitral annular calcification. Thickened aortic valve. Moderate mitral and tricuspid regurgitation Mild pulmonary hypertension with an estimated pulmonary artery peak systolic pressure of 49 mmHg There are no intracardiac masses. There is no pericardial effusion. No previous study is available for comparison. CXR: My impression: Prominent interstitial markings bilaterally. Features of pulmonary venous congestion. Borderline cardiac silhouette. Other Imaging: My impression: Telemetry shows episodes of atrial fibrillation with rapid ventricular rate. EKG^: EKG 1: My Interpretation: Normal sinus rhythm withs upraventricular ectopics. Bundle branch block pattern. A&P Assessment and plan (1) Acute congestive heart failure: The etiology of the heart failure is not clear at this time. It is very possible that the atrial fibrillation might be causing the heart failure. Underlying coronary ischemia/LV dysfunction causing this also are considerations. This needs to be further evaluated. I reviewed the echocardiogram. Patient was found to have severe LV systolic dysfunction. We will try to optimize the diuretics and afterload reducing agents. Status: Acute Qualifiers: Heart failure type: unspecified Qualified Code(s): I50.9 - Heart failure, unspecified (2) Acute on chronic respiratory failure with hypoxia and hypercapnia: This could be a combination of the COPD exacerbation/CHF. Status: Acute (3) Acute kidney injury: Possibly related to acute hemodynamic compromise. Consider careful diuresis Status: Acute (4) COPD exacerbation: Need to optimize the bronchodilator treatment. Status: Acute (5) Intermittent atrial fibrillation: Agree with anticoagulation. If the patient has LV systolic dysfunction, it would be appropriate to start her on amiodarone for the arrhythmia. Status: Acute Additional A&P Information Other problems are #1 anemia #2 hypokalemia #3 History of reactive airway disease Based on the patient clinical progress and the results of the above, further recommendations will be made. Thank you for the opportunity to eval this patient make these recommendations. Coding Level of Care Code Acute Mental Hygiene Consultant for Corky Tate History Comprehensive Exam Comprehensive Medical Decision Making Moderate Complexity Diagnoses Acute congestive heart failure I50.9 Heart failure type: unspecified Acute on chronic respiratory failure with hypoxia and hypercapnia J96.21; J96.22 Acute kidney injury N17.9 COPD exacerbation J44.1 Intermittent atrial fibrillation I48.0 Time Spent (min) 60
[2020-05-02] MEDS: amiodarone 200 mg Tablet 400 MG PO (18:48)
[2020-05-02 21:18] LABS: Glucose Point of Care 143 mg/dL (70-110)
[2020-05-03] VITALS (30 sets, daily range): BP systolic 90–138; BP diastolic 36–68; PULSE 63–105; RESP 15–33; TEMP 36.6–36.8; O2SAT 91–99
[2020-05-03] MEDS: amiodarone 200 mg Tablet 400 MG PO ×2 (03:29→10:47)
[2020-05-03] MEDS: FUROsemide 10 mg/mL SDV 4mL 40 MG IVP (03:29)
[2020-05-03] MEDS: ipratropium-albuterol 3 mL Neb INHALATION ×5 (03:32→20:03)
[2020-05-03 05:36] LABS: Eosinophils % 0.1 %; Hematocrit 36.2 % (37.0-47.0); Lymphocytes # 1.2 10^3/uL (0.8-4.8); Mean Corpuscular HGB Conc 30.4 g/dL (30.0-36.0); Mean Corpuscular Hemoglobin 27.3 pg (28.0-34.0); Mean Corpuscular Volume 89.8 fL (81-99); Mean Platelet Volume 11.2 fL (7.4-10.4); Monocytes # 0.6 10^3/uL (0.2-0.9); Monocytes % 6.2 %; Neutrophils % 81.3 %; Nucleated Red Blood Cells % 0 %; Platelet Count 251 10^3/cmm (130-400); Red Blood Count 4.03 10^6/uL (4.1-5.3); White Blood Count 9.6 10^3/uL (4.0-10.0)
[2020-05-03 05:51] LABS: Magnesium 2.3 mg/dL (1.7-2.3)
[2020-05-03 05:55] LABS: Anion Gap 13.9 (5-19); Blood Urea Nitrogen 37 mg/dL (8-23); Calcium 8.5 mg/dL (8.5-10.5); Carbon Dioxide 26 mmol/L (22-29); Chloride 107 mmol/L (98-107); Glomerular Filtration Rate 49.4 mL/min (90-130); Glucose 128 mg/dL (65-115); Osmolality Calculated 295 mOsm/kg (285-295); Potassium 3.9 mmol/L (3.5-5.1); Sodium 143 mmol/L (136-145)
--- NOTE | 2020-05-03 06:00 | XRR_ITS ---
PROCEDURE INFORMATION: Exam: XR Chest, 1 View Exam date and time: 05/03/2020 5:18 AM Age: 69 years old Clinical indication: Patient HX: Resp distress/failure. HX of chf/copd exacerbation; Additional info: Heart failure TECHNIQUE: Imaging protocol: XR of the chest Views: 1 view. COMPARISON: CR XR chest 1V portable [id number] 05/01/2020 1:18 AM FINDINGS: Lungs: Asymmetric left basilar airspace/pleural disease partially obscuring the left hemidiaphragm. Emphysematous change and interstitial prominence. Heart/Mediastinum: Borderline cardiomegaly. Bones/joints: Degenerative change. XR/XR chest 1V portable [id number] IMPRESSION: Asymmetric left basilar airspace/pleural disease partially obscuring the left hemidiaphragm.
[2020-05-03 06:01] LABS: NT Pro B Type Natriuretic Pept 4503 pg/mL (0-125)
[2020-05-03] MEDS: enoxaparin 80 mg/0.8 mL Syringe SUBCUT (06:17)
[2020-05-03 07:54] LABS: Glucose Point of Care 110 mg/dL (70-110)
[2020-05-03] MEDS: pantoprazole DR 40 mg Tablet PO (09:42)
--- NOTE | 2020-05-03 09:43 | P.PN_ITS ---
Subjective Subjective: Interval history: Patient reports feeling well this morning. Denies shortness of breath or chest pain. Echocardiogram shows diffuse and severe hypokinesia of the left ventricle with EF 20%. X-ray this morning looks much better. Medications: Reviewed: Yes Vitals/I&O/Wt Last Vital Signs Temp 98.1 F 05/03/20 03:39 Pulse 87 05/03/20 07:22 Resp 17 05/03/20 07:21 BP 138/65 05/03/20 07:00 Pulse Ox 96 05/03/20 07:21 05/02/20 05/03/20 05/03/20 22:59 06:59 14:59 Intake Total 200 / 200 410 / 410 Output Total 1800 / 1800 400 / 2200 Balance -1600 / -1600 -400 / -2000 410 / 410 Weight last 48 hrs Weight 85.321 kg Weight 76.204 kg Physical Exam Const: COMMON NORMALS: no acute distress and patient oriented x3 Resp: COMMON NORMALS: normal respiratory effort OTHER: Bibasilar Rales and overall decreased air movement. Cardio: COMMON NORMALS: regular rate, regular rhythm and S2 normal heart sound present RATE: regular rate RHYTHM: regular rhythm HEART SOUNDS: S2 normal heart sound present OTHER: No lower extremity edema, frequent ectopic beats. GI: COMMON NORMALS: Normal to inspection, nondistended, normoactive bowel sounds present, Soft to palpation and non-tender PALPATION: Yes Soft to palpation Neuro: COMMON NORMALS: patient oriented x3 and no focal motor deficits Data : 05/03/20 04:25 05/03/20 04:25 A&P Assessment and plan (1) Acute on chronic respiratory failure with hypoxia and hypercapnia: significant phlegm production.Acute respiratory failure with hypoxia and hypercapnia. Very hypoxic at home. Per and respiratory distress. EMS had to start her on nonrebreather. In ER started on BiPAP support. Received Lasix, empiric antibiotics. Showed significant improvement, during my visit already was transitioned to nonrebreather, and saturating 100%. Rate decreased down to 8 L/min. Requested repeat ABG. Appears to be in congestive heart failure, with pulmonary congestion and edema, elevated BNP. Ordered troponin EKG series to rule out acute ischemia as the cause. Since her mental status now significantly improved, she is able to provide her history. Her daughter is by the bedside corroborating her story. She denies any chest pain or pressure. Got more short of breath over the evening, took inhaler, and subsequently took her sleep medications in preparation closely. Her then noticed she was not breathing right, becoming more short of breath, and respiratory distress, and confused/less responsive. She does report occasionally previously being noticed by her that she does not breathe well. She says that this has improved since she started on sleep medications with Ambien and trazodone. Previously also on Klonopin, but this was discontinued. If sleep apnea is present, some of the pulmonary edema may be explained by this as well. Appears to also have COPD exacerbation with some cough, although is not particularly productive of sputum. There is still also possible underlying pneumonia, with bilateral infiltrates. Possibly atypical. For now will provide empiric coverage with antibiotics. Check rapid flu, COVID-19. Collect sputum f or culture if possible. Bacterial antigens. MRSA PCR. Blood culture collected. Appears to have combination respiratory and metabolic acidosis. Possibly sepsis, with lactic acidosis of 4. For COPD exacerbation received a dose of steroids in EMS on the way here. We will continue Solu-Medrol. Continue antibiotics as above. Breathing treatments. Given sinus tachycardia, hypoxic respiratory failure, recent prolonged car trip to a [employer], dicussed with her and daughter that for now until she is stable enough to have chest imaging to exclude PE will be empirically enticoagulated with Lovenox. Discussed risks of bleeding vs risks of untreated PE. Both patient and daughter agreeable at this time. Discussed her condition and further assessment and plan and both verbalized understanding and agreement. All questions answered to their satisfaction. Status: Acute (2) COPD exacerbation: As above. Currently not in exacerbation. Status: Acute (3) Congestive heart failure: Acute systolic heart failure. Suspected secondary to recent type I [place] Status: Acute (4) Insomnia: Takes Ambien, trazodone. Previously also taking Klonopin, says stopped taking this currently. Discussed with her concern of multiple medications used for sleep, which can also affect mental status. Given noticed that when she does not take medications sometimes breathing becomes irregular, discussed would benefit from a sleep study. She and daughter verbalized understanding. Status: Acute (5) Restrictive lung disease: Noted on last PFT, mild pulmonary restriction. Consider additional outpatient follow-up. Status: Acute (6) Metabolic acidosis: Lactic acidosis, LA 4. Difficult to say exact cause. Concern for possible hypoperfusion, perhaps secondary to hypoxia, as well as congestive heart failure. Assessment and treatment as above. Possible severe sepsis secondary to pneumonia, although otherwise has no fever, only dry cough. Reflex lactate not yet resulted. Did receive a fluid bolus on presentation, however, will limit any further fluids given congestive heart failure, pulmonary congestive changes and edema. Status: Acute (7) Respiratory acidosis: COPD exacerbation, suspect perhaps also degree of hypoventilation secondary to sleep medications. As above. Status: Acute (8) Acute kidney injury: Mild acute kidney injury. Creatinine up to 1.1. Possibly secondary to acute CHF. Monitor for now. Does have hyperglycemia is on presentation. Will assess for possible diabetes due to which may be predisposed to CKD. Status: Acute (9) Lactic acid acidosis: As above. Status: Acute (10) Hyperglycemia: Does not have diabetes. On presentation with noted hyperglycemia, glucose 390. Concern for possible undiagnosed diabetes. Did receive a dose of steroid IV on the way to the hospital. We will check A1c. Mild insulin sliding scale added due to severity of hyperglycemia. Consistent carbohydrate diet. For now clear liquids due to respiratory failure. Status: Acute Additional A&P Information Quit smoking 3 months ago. Highly suspected recent acute coronary syndrome. Demand ischemia secondary to CHF felt less likely Hypokalemia Possible sleep apnea: Reports occasionally, prior to starting sleep medications, was having episodes where she would stop breathing at night per her . May benefit from outpatient sleep study. Patient daughter verbalized understanding. PLAN: Continue diuresis and start patient on spironolactone and small dose lisinopril. We will give 40 mEq of potassium. We will discuss with Dr. Rodriguez regarding further evaluation with coronary angiography We will transfer patient to cardiac floor Attestations Medical Necessity Statement*: Patient with acute heart failure and suspected [place] requires close inpatient monitoring and treatment Time Spent in Patient Care: Greater than 35 minutes Coding Level of Care Code Acute Automobile Rental Representative for Corky Tate Diagnoses Acute on chronic respiratory failure with hypoxia and hypercapnia J96.21; J96.22 COPD exacerbation J44.1 Congestive heart failure I50.9 Insomnia G47.00 Restrictive lung disease J98.4 Metabolic acidosis E87.2 Respiratory acidosis E87.2 Acute kidney injury N17.9 Lactic acid acidosis E87.2 Hyperglycemia R73.9
[2020-05-03] MEDS: lisinopril 2.5 mg Tablet PO (10:46)
[2020-05-03] MEDS: spironolactone 25 mg Tablet PO (10:47)
[2020-05-03] MEDS: potassium chloride ER 10 mEq Tablet 40 MEQ PO (10:47)
[2020-05-03] MEDS: sodium chloride 0.9% 250 ML IV (10:48)
--- NOTE | 2020-05-03 10:48 | PM.PN ---
Subjective Subjective: Interval history: Patient is feeling better. Denies any chest pain. Telemetry shows sinus rhythm with frequent PACs, PACs and short runs of atrial fibrillation's. Medications: Reviewed: Yes Medication Review Details: Current Medications Albuterol/Ipratropium (Duoneb) 3 ml INHALATION Q4H.[facility] Last Admin: 05/03/20 07:19 Dose: 3 ml Documented by: Albuterol/Ipratropium (Duoneb) 3 ml INHALATION Q4H PRN PRN Reason: SHORTNESS OF BREATH Amiodarone HCl (Cordarone) 400 mg PO BID [facility] Last Admin: 05/03/20 10:47 Dose: 400 mg Documented by: Dextrose (D50w) 25 ml IVP ONCE PRN; Protocol PRN Reason: hypoglycemia protocol Dextrose (D50w) 50 ml IVP PRN PRN; Protocol PRN Reason: hypoglycemia protocol Enoxaparin Sodium (Lovenox) 80 mg SUBCUT Q12H [facility] Last Admin: 05/03/20 06:17 Dose: 80 mg Documented by: Furosemide (Lasix) 40 mg IVP Q12H [facility] Last Admin: 05/03/20 03:29 Dose: 40 mg Documented by: Glucagon (Glucagen) 1 mg IM ONCE PRN; Protocol PRN Reason: Adult Acute Hypoglycemia Prot. Dextrose (D5w) 500 mls @ 100 mls/hr IV ONCE PRN; Protocol PRN Reason: Adult Acute Hypoglycemia Prot Sodium Chloride (Sodium Chloride 0.9%) 250 mls @ 250 mls/hr IV ONCE ONE Stop: 05/03/20 10:57 Last Admin: 05/03/20 10:48 Dose: 250 mls/hr Documented by: Insulin Aspart (Novolog) 0 unit SUBCUT TIDWM [facility]; Protocol Last Admin: 05/03/20 07:55 Dose: Not Given Documented by: Lisinopril (Prinivil) 2.5 mg PO DAILY [facility] Last Admin: 05/03/20 10:46 Dose: 2.5 mg Documented by: Pantoprazole Sodium (Protonix) 40 mg PO BID [facility] Last Admin: 05/03/20 09:42 Dose: 40 mg Documented by: Potassium Chloride (Klor-Con 10) 40 meq PO DAILY [facility] Last Admin: 05/03/20 10:47 Dose: 40 meq Documented by: Spironolactone (Aldactone) 25 mg PO DAILY [facility] Last Admin: 05/03/20 10:47 Dose: 25 mg Documented by: Vitals/I&O/Wt Last Vital Signs Temp 98.1 F 05/03/20 10:00 Pulse 94 05/03/20 10:00 Resp 17 05/03/20 10:00 BP 120/53 05/03/20 10:00 Pulse Ox 98 05/03/20 10:00 05/02/20 05/03/20 05/03/20 22:59 06:59 14:59 Intake Total 200 / 200 410 / 410 Output Total 1800 / 1800 400 / 2200 Balance -1600 / -1600 -400 / -2000 410 / 410 Weight last 48 hrs Weight 188 lb 1.6 oz Weight 168 lb Physical Exam Narrative: EXAM NARRATIVE: GENERAL: The patient is alert and oriented times three. Not in any acute distress. HEENT: No significant pallor, icterus or lymphadenopathy. NECK: Trachea appears to be central. No masses noted. No JVD or thyromegaly appreciated. No carotid bruit. RESPIRATORY: Chest is symmetrical. No intercostals muscle retraction or any accessory muscle activation. There is no chest wall tenderness. Breath sounds are heard bilaterally. Few fine rales at the bases BREASTS: Deferred. HEART: The PMI could not be palpated. First heart sound is variable. Second heart rate is normal. No S3. Short systolic murmur in the left sternal border. No diastolic murmurs. No pericardial rub. ABDOMEN: No vessel pulsations or distention. No tenderness. No organomegaly appreciated. No abdominal bruit. Bowel sounds are normally heard. : Deferred. RECTAL: Deferred. LYMPHATIC: No lymphadenopathy noted in the neck or groin. EXTREMITIES: No significant edema or cyanosis. Peripheral pulses are palpable but somewhat weak bilaterally. MUSCULOSKELETAL: No acute joint deformities or swelling SKIN: There are no significant scars or skin rash noted. NEUROPSYCHIATRIC: The patient is alert and oriented x3. Appears to be in a good mood. The higher functions are grossly within normal limits. No tremors or rigidity noted. Data : 05/03/20 04:25 05/03/20 13:57 A&P Assessment and plan (1) Acute congestive heart failure: Has severe LV systolic dysfunction. Possibility of coronary ischemia/nonischemic cardiomyopathy/cardiac arrhythmia causing the LV dysfunction are considerations. We will try to optimize the afterload reducing agents and the diuretics. May continue on the amiodarone for the arrhythmia. Patient may benefit from a cardiac catheterization, to further evaluate the coronary status and decide on further management. This was discussed the patient detail which she understood well. Because of the high BUN/creatinine ratio, I would like to see the kidney function stabilized before taking her to the lab. Status: Acute Qualifiers: Heart failure type: unspecified Qualified Code(s): I50.9 - Heart failure, unspecified (2) Acute on chronic respiratory failure with hypoxia and hypercapnia: This could be a combination of the COPD exacerbation/CHF. Patients respiratory status has significantly improved. Status: Acute (3) Acute kidney injury: Possibly related to acute hemodynamic compromise. Consider careful diuresis. I may cut back on the Lasix to 40 mg daily. May give her 250 cc of normal saline bolus. We will repeat the BMP this afternoon. If the creatinine is not going up, we may go ahead with the procedure. This was discussed with the patient in detail. Status: Acute (4) COPD exacerbation: Need to optimize the bronchodilator treatment. Management as per the primary Status: Acute (5) Intermittent atrial fibrillation: Agree with anticoagulation. We will continue on the amiodarone 400 mg p.o. twice daily. Status: Acute Additional A&P Information Other problems are #1 anemia, stable #2 hypokalemia, improved #3 History of reactive airway disease Based on the patient's clinical progress, further management decisions will be made. 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
[2020-05-03 11:36] LABS: Glucose Point of Care 145 mg/dL (70-110)
[2020-05-03 14:40] LABS: Anion Gap 15.2 (5-19); Blood Urea Nitrogen 37 mg/dL (8-23); Calcium 8.9 mg/dL (8.5-10.5); Carbon Dioxide 25 mmol/L (22-29); Chloride 107 mmol/L (98-107); Glomerular Filtration Rate 49.4 mL/min (90-130); Glucose 85 mg/dL (65-115); Osmolality Calculated 293 mOsm/kg (285-295); Potassium 4.2 mmol/L (3.5-5.1); Sodium 143 mmol/L (136-145)
--- NOTE | 2020-05-03 15:53 | XACV_ITS ---
Exam Room: [facility] Ht: 165 cm Wt: 85 kg BSA: 2.01 m2 Gender: Female : 1950 Exam Priority: Routine Procedure(s): Procedure Description: Diagnostic procedure Procedure Description: Left ventriculography Procedure Description: O2 saturation Procedure Description: Coronary Angiography Diagnostic Cath Status: Elective Diagnostic Findings Patient with a dilated cardiomyopathy and congestive heart failure. Recommended for right and left heart catheterization, coronary angiography and left ventriculography. The right heart catheterization was done via the right cephalic vein. Mean right atrial pressure 12 mmHg, right ventricular pressure 50/3. Pulmonary capillary wedge pressure 20 mmHg. Pulmonary artery pressure 54/18. Pulmonary artery saturation 65%. Right atrial saturation 64%. Superior vena cava saturation 65%. Coronary angiography reveals right coronary artery dominance. The left main coronary artery is normal. The circumflex is normal. The LAD is normal and the right coronary artery is normal. Conclusions Normal coronary arteries. Severely dilated left ventricle with ejection fraction approximately 25 to 30%. No valvular heart disease. Moderate pulmonary artery hypertension with pulmonary artery pressure 54/18. I spoke to the patient's daughter over the telephone. She is a nurse. Interventional RX Recommendation: medical therapy and/or counseling Diagnostic RX Recommendation: medical therapy and/or counseling Anticoagulation: Heparin Ventriculography Ejection Fraction: 25.0 % Left Ventriculography Findings: Enlarged dilated left ventricle with 1+ mitral regurgitation. Pressures Phase:Rest AO : 103 mmHg / 60 mmHg ( 79 mmHg ) @ 12:36:00 PM 98 mmHg / 49 mmHg ( 72 mmHg ) @ 12:46:00 PM 103 mmHg / 55 mmHg ( 75 mmHg ) @ 12:46:00 PM LV : 107 mmHg / 6 mmHg / @ 12:45:00 PM 107 mmHg / 6 mmHg / @ 12:46:00 PM 100 mmHg / 6 mmHg / @ 12:46:00 PM RV : 50 mmHg / 3 mmHg / @ 12:23:00 PM PA : 54 mmHg / 18 mmHg ( 31 mmHg ) @ 12:24:00 PM RA : a wave = v wave = mean = 12 mmHg @ 12:22:00 PM O2 Content Phase:Rest PA : O2 Content O2: 64.6 % @ 12:36:00 PM Saturations Phase:Rest AO : 97 % @ 12:45:00 PM RA : 64 % @ :46:00 PM PA : 65 % @ 12:36:00 PM SVC : 65 % @ 12:46:00 PM Cardiac Output Phase:Rest Divya : 4 l/min @ 12:36:00 PM Divya Cardiac Index: 2 L/min/m2 @ 12:36:00 PM Valves Phase:DefaultPhase AV : 0.0 mmHg @ 5:58:54 PM AV Mean Gradient: 0.0 mmHg @ 5:58:54 PM 0.0 mmHg @ 5:58:54 PM Clinical Evaluation EBL: 5mL-10mL Procedural Details Procedure Consent Obtained. Pre-Procedure Time Out. Identified patient by full name and date of as verbalized by the patient/guarantor. Does the consent match the physician's order: Yes. Accurate & Complete Informed Consent: Yes. Inpatient/Outpatient History & Physical on Chart: Yes. If H&P is completed, is and addenduem needed: No; If yes, is the addendum complete: N/A. Visualize and Verify Site with Patient/Guarantor: N/A. Relevant Radiology Images available: Yes. The risks, benefits, and alternatives of sedation and/or procedure were discussed by physician. The patient agrees to continue. Procedure started. Correct patient, site and procedure confirmed by cath team. Current diagnosis: Chest Pain, LV dysfunction. PERRLA. Strong, equal hand mobile lab technician bilaterally. Lungs clear x 5 lobes. IV Site on Arrival: 20 gauge in the right forearm. IV Site on Arrival: 20 gauge in the left forearm. IV Fluids: 0.9% NaCl at KVO. 0 mL infused prior to field laborer. Pre Procedural Pulses: bilateral dorsalis pedis was 3+. Pre Procedural Pulses: bilateral posterior tibial was 3+. Pre Procedural Pulses: bilateral radial was 3+. Oxygen started at 2liters/min via nasal canula. bilateral groins was prepped with chloroprep then draped in the usual sterile fashion. right radial was prepped with chloroprep then draped in the usual sterile fashion. Physician notified. Baseline sample Acquired. HR: 82 BPM. Equipment: 6F - Radial. Cardiac Cath Pack. ACIST Manifold Kit Model BT 2000. Heparinized Saline (2 units/mL), 1000 mL bag. Physician arrived. Physician scrubbed in. Immediate Pre-Procedure Time Out. Correct Patient: Yes; Correct Procedure: Yes; Correct Site: Yes; Correct Patient Position: Yes; Correct Supplies: Yes; Dried Flammable Prep: Yes; Blood Products Available: No;. Lidocaine 1% infiltrated to the right brachial. [place] MON catheter inserted. Pressure measurements obtained. Oximetry samples were obtained. Normal venous range: 60-85%. Normal arterial range: 95-100%. Lidocaine 1% infiltrated to the right radial. Arterial access obtained. A 6 khmer TIG catheter in over wire. Multiple views taken of left coronary artery. Catheter redirected to the RCA. Multiple views taken of right coronary artery. Catheter out. A 6 khmer Angled Pig catheter in over wire. EDP Sample taken: LV 107/6,19; HR: 78 BPM; SpO2: 96%. LV gram performed in JUAREZ @ 10 mL/second for a total of 30 mL. EDP Sample taken: LV 107/6,21; HR: 87 BPM; SpO2: 94%. Pullback taken: LV 100/6,18; AO 98/49(72); Mean: 0mmHg, Peak to Peak: 0mmHg, SEP: 11sec/min; HR: 83 BPM; SpO2: 95%. A TR Band was successful obtaining hemostatsis at the Right Radial artery insertion site. A Mechanical Compression was successful obtaining hemostatsis at the Right Brachial artery insertion site. TR band placed. Hemostasis obtained. Post Procedure: Pulses reassessed and unchanged. PERRLA. Strong, equal hand mobile lab technician bilaterally. No VTE prophylaxis required. Medication's Wasted: Lidocaine 1% = 15 mL. Medication's Wasted: Nitro = 49.8 mg. Medication's Wasted: Other = Versed 1 mg. Medication's Wasted: Other = Fentanyl 25 mcg. Total IV fluids: 75 mL. Contrast type used: Omnipaque 300 mgI/mL, 500 mL bottle. Post-op diagnosis: Cardiomyopathy. Complications: None. Estimated blood loss: 5mL-10mL. Procedure completed. Patient transferred by bed to 1st floor. Vital chart was stopped. Site: Right Brachial artery Sheath Size: 6 Fr Hemostasis Method: Mechanical Compression Hemostasis Success: Successful Site: Right Radial artery Sheath Size: 6 Fr Hemostasis Method: TR Band Hemostasis Success: Successful Procedure Medications Start: 5:04 PM Stop: 5:04 PM Medication: Versed Amount: 1 mg Route: I.V. Start: 5:04 PM Stop: 5:04 PM Medication: Fentanyl Amount: 50 mcg Route: I.V. Start: 5:16 PM Stop: 5:16 PM Medication: Versed Amount: 1 mg Route: I.V. Start: 5:29 PM Stop: 5:29 PM Medication: Versed 1 mg and Fentanyl 25 mcg Amount: 1 Route: I.V. Start: 5:32 PM Stop: 5:32 PM Medication: Verapamil Amount: 5 mg Route: I.A. Start: 5:32 PM Stop: 5:32 PM Medication: Nitrogylcerin Amount: 200 mcg Route: I.A. Start: 5:36 PM Stop: 5:36 PM Medication: Heparin Amount: 5000 units Route: I.V. I, the attending physician, have reviewed and verified all procedure medications. Yes, all medications given per verbal order History/Risk Factors Hypertension: No Dyslipidemia: No Peripheral Arterial Disease (PAD): No Myocardial Infarction ([place]): No Obesity: No Renal Disease: No Prior Interventions PCI: No CABG: No Valve Surgery: No Report Signatures Finalized by:Dr. Laureano Dumont MD on 05/03/2020 6:16:21 PM
[2020-05-03 16:19] LABS: Glucose Point of Care 98 mg/dL (70-110)
--- NOTE | 2020-05-03 16:45 | PC.NURSE ---
Patient to laboratory veterinarian.
--- NOTE | 2020-05-03 18:00 | PC.NURSE ---
Patient returned from medical laboratory technicians. TR band in place on right wrist. Pressure dressing to right brachial site. Patient denies pain. Resp regular & unlabored.
--- NOTE | 2020-05-03 18:15 | PC.NURSE ---
Patients right hand is dusky in color and cool. 3 ml of aire removed from TR band
--- NOTE | 2020-05-03 18:30 | PC.NURSE ---
Patient's right hand is still light & dusky. 2 ml air removed from TR band.
--- NOTE | 2020-05-03 19:46 | PC.NURSE ---
Received report from [facility]. Patient resting in bed watching tv and talking on the phone with daughter. Patient is s/p left and right heart cath. Patient has pressure dressing to right ac area which is removed at this time and a TR band in place to right wrist. No s/s of bleeding or hematoma formation to either site. Removed 2ml of air from TR band. Instructed patient on site care and restrictions. Patient verbalized complete understanding. Patient denies other needs or discomforts. No distress observed.
--- NOTE | 2020-05-03 20:30 | PC.NURSE ---
TR band removed at this time per protocol. No s/s of bleeding or hematoma formation observed. Instructed patient on site care. Patient demonstrated and verbalized complete understanding. Cleaned with alcohole wipe and covered site with 2x2 and bio-occlusive dressing.
[2020-05-03 20:39] LABS: Glucose Point of Care 146 mg/dL (70-110)
[2020-05-04] VITALS (10 sets, daily range): BP systolic 100–129; BP diastolic 56–77; PULSE 66–80; RESP 17–29; TEMP 35.9–37.1; O2SAT 93–98
[2020-05-04] MEDS: FUROsemide 10 mg/mL SDV 4mL 40 MG IVP (04:26)
[2020-05-04] MEDS: ipratropium-albuterol 3 mL Neb INHALATION ×2 (04:30→08:37)
[2020-05-04 06:02] LABS: Basophils % 0.2 %; Eosinophils # 0.1 10^3/uL (0.0-0.8); Eosinophils % 1.2 %; Hematocrit 34.3 % (37.0-47.0); Hemoglobin 10.3 g/dL (11.5-15.3); Lymphocytes # 1.6 10^3/uL (0.8-4.8); Lymphocytes % 27.1 %; Mean Corpuscular Hemoglobin 27.4 pg (28.0-34.0); Mean Corpuscular Volume 91.2 fL (81-99); Mean Platelet Volume 11.5 fL (7.4-10.4); Monocytes # 0.5 10^3/uL (0.2-0.9); Monocytes % 9.1 %; Neutrophils # 3.62 10^3/uL (1.8-7.7); Neutrophils % 62.2 %; Nucleated Red Blood Cells % 0 %; Platelet Count 215 10^3/cmm (130-400); Red Blood Count 3.76 10^6/uL (4.1-5.3); Red Cell Distribution Width 14.4 % (12.1-15.1); White Blood Count 5.8 10^3/uL (4.0-10.0)
[2020-05-04 06:53] LABS: Glucose Point of Care 101 mg/dL (70-110)
--- NOTE | 2020-05-04 06:56 | PM.PN ---
Subjective Subjective: Interval history: Suki underwent right and left heart catheterization last evening. She has normal coronary arteries. She has a severely dilated left ventricle with severe global left ventricular dysfunction. She also has secondary pulmonary hypertension to a moderate degree. Her pulmonary artery pressure is in the low 50s. The pulmonary hypertension is related to left ventricular dysfunction. I had a conversation with her daughter over the phone last evening after the procedure. Her daughter is a nurse. This morning she feels okay. Her labs are pending. I explained the entire situation to the patient this morning. Medications: Reviewed: Yes Vitals/I&O/Wt Last Vital Signs Temp 98.3 F 05/04/20 04:00 Pulse 72 05/04/20 04:35 Resp 18 05/04/20 04:30 BP 114/64 05/04/20 04:00 Pulse Ox 95 05/04/20 04:30 05/03/20 05/03/20 05/04/20 14:59 22:59 06:59 Intake Total 410 / 410 200 / 610 240 / 850 Output Total 650 / 650 Balance -240 / -240 200 / -40 240 / 200 Weight last 48 hrs Weight 186 lb 9.6 oz Weight 188 lb 1.6 oz Physical Exam Narrative: EXAM NARRATIVE: GENERAL: In general she looks and feels well HEENT: Exam within normal limits. NECK: Supple without jugular vein distention. The carotid upstroke is normal without bruits. BACK: Exam normal. LUNGS: Clear. HEART: Regular rate and rhythm. ABDOMEN: Benign without organomegaly or tenderness. EXTREMITIES: No edema. NEUROLOGIC: Exam normal. SKIN: Unremarkable. Data : 05/04/20 03:08 05/03/20 13:57 A&P Assessment and plan (1) Intermittent atrial fibrillation: Status: Acute (2) Acute congestive heart failure: Status: Acute Qualifiers: Heart failure type: unspecified Qualified Code(s): I50.9 - Heart failure, unspecified (3) Hyperglycemia: Status: Acute (4) Acute kidney injury: Status: Acute (5) COPD exacerbation: Status: Acute (6) Nonischemic cardiomyopathy: Status: Acute (7) Secondary pulmonary hypertension: Status: Acute Additional A&P Information Her heart failure seems well compensated. I think she can go home today. She should go home on Lasix 40 mg daily, Aldactone 25 mg daily, lisinopril 2.5 mg daily, potassium as ordered and amiodarone 200 mg daily. Carvedilol 3.125 mg twice daily should be added. She should have a follow-up visit with the nurse practitioner in our office in 7 to 10 days for right radial artery check and chemistry panel. She should then have an echo in 3 months. She should see Dr. Rodriguez after the echo is performed. Attestations Medical Necessity Statement*: Not applicable Coding Level of Care Code Established Pt Acute Auto Fleet Maintenance Manager for Corky Tate Patient Type Established History Detailed Exam Detailed Medical Decision Making Moderate Complexity Diagnoses Intermittent atrial fibrillation I48.0 Acute congestive heart failure I50.9 Heart failure type: unspecified Hyperglycemia R73.9 Acute kidney injury N17.9 COPD exacerbation J44.1 Nonischemic cardiomyopathy I42.8 Secondary pulmonary hypertension
[2020-05-04 06:59] LABS: Anion Gap 14.3 (5-19); Blood Urea Nitrogen 34 mg/dL (8-23); Calcium 8.7 mg/dL (8.5-10.5); Carbon Dioxide 23 mmol/L (22-29); Chloride 106 mmol/L (98-107); Glomerular Filtration Rate 55.1 mL/min (90-130); Glucose 82 mg/dL (65-115); Osmolality Calculated 284 mOsm/kg (285-295); Potassium 4.3 mmol/L (3.5-5.1); Sodium 139 mmol/L (136-145)
[2020-05-04 07:04] LABS: Magnesium 2.3 mg/dL (1.7-2.3)
[2020-05-04] MEDS: FUROsemide 40 mg Tablet PO (07:40)
[2020-05-04] MEDS: spironolactone 25 mg Tablet PO (08:24)
[2020-05-04] MEDS: amiodarone 200 mg Tablet PO (08:24)
[2020-05-04] MEDS: pantoprazole DR 40 mg Tablet PO (08:24)
[2020-05-04] MEDS: lisinopril 2.5 mg Tablet PO (08:24)
[2020-05-04] MEDS: potassium chloride ER 10 mEq Tablet 40 MEQ PO (08:24)
[2020-05-04] MEDS: calcium carbonate 500 mg Chew Tablet PO (09:35)
--- NOTE | 2020-05-04 09:38 | PC.NURSE ---
Patient reports indigestion and 1 episodes of emesis but reports it stomach acid no contents to emesis. Called Dr. Zimmerman and he reported he had added order for tums to the MAR to try that med to help with heartburn/indigestion.
--- NOTE | 2020-05-04 10:10 | PC.SOCIAL ---
Pg 2 IMM Explained to pt Pg 2 IMM. Pt verbally understands. No questions voiced. Provided pt a copy. Signed, dated, & timed a copy & placed in pt's chart.
--- NOTE | 2020-05-04 10:19 | PC.NURSE ---
Dr Zimmerman at bedside and wants patient to walk for 6 mins and re evaluate 02, then possible discharge patient home is safety precautions are met. Patient is interested in meds to beds for now, then wants paper scripts for the rest of her new medications to find the cheapest pharmacy in her area.
[2020-05-04 11:28] LABS: Glucose Point of Care 102 mg/dL (70-110)
--- NOTE | 2020-05-04 11:46 | PC.NURSE ---
RT evaluated patient for home o2 eval, patient does not qualify for home o2
--- NOTE | 2020-05-04 12:44 | CT_ITS ---
WS: [id number] CT CHEST, ABDOMEN AND PELVIS WITHOUT CONTRAST. HISTORY: Vomiting, concern for pneumonia, UTI TECHNIQUE: Contiguous 5 mm axial imaging performed through the chest, abdomen and pelvis without IV c ontrast, oral contrast has not been provided. Coronal and sagittal reformats chest. Coronal and sagit whitney reformats through the abdomen and pelvis. All CT scans at [facility] use at least one of these dose optimization techniques: automated exposure control; mA and/or kV adjustment per patie nt size (includes targeted exams where dose is matched to clinical indication); or iterative reconstr uction. CONTRAST: None DLP: 1674.67 mGy.cm COMPARISON: 06/01/2015. Chest radiograph 05/03/2020. Chest CT: Ill-defined area of groundglass attenuation central RIGHT upper lobe. Small LEFT pleural ef fusion with associated subsegmental atelectasis. No pneumothorax. Very small amount of pleural thicke emerson in the posterior RIGHT thorax. Very mild atherosclerosis aorta. Cardiac chambers are moderately enlarged. There is a small amount of pericardial fluid. Moderate to large hiatal hernia. No adenopath y. Benign RIGHT hilar calcified lymph nodes. Abdomen CT: Liver is normal. Increased density in the gallbladder is probably due to vicarious excret ion of contrast. Normal size spleen with granulomata. Normal pancreas and adrenal glands. No renal ma ss or obstruction or perinephric stranding. Mild atherosclerosis aorta. No ascites or adenopathy. Pelvic CT: No free fluid. No GI tract obstruction. The appendix is not definitely identified. No evid ence for appendicitis. Injection sites in the subcutaneous soft tissues over the pelvis. Prior hyster ectomy. CT/CT chest abd pel wo con IMPRESSION: 1. Small LEFT pleural effusion and LEFT basilar atelectasis. 2. Prior appendectomy and hysterectomy. 3. Ill-defined groundglass attenuation central RIGHT upper lobe. Probably an a chris of pneumonitis. 4. Moderate cardiomegaly. 5. Moderate to large hiatal hernia.
--- NOTE | 2020-05-04 13:05 | PC.NURSE ---
Dr notified of continued episodes of nausea and emesis from patient. Dr Zimmerman ordered CT of abd without contrast at this time.
--- NOTE | 2020-05-04 13:29 | PM.PN ---
Subjective Subjective: Interval history: Patient reports doing better this morning although has been having several episodes of nausea and vomiting since this morning. Denies shortness of breath or chest pain. Denies abdominal pain. Passing gas and denies any problems with bowel movement. Patient reports that at home she takes omeprazole which is the only PPI that helps. She reports being nauseous and having heartburn and she is convinced that this is her reflux disease. Medications: Reviewed: Yes Medication Review Details: Current Medications Albuterol/Ipratropium (Duoneb) 3 ml INHALATION Q4H.RESPIRATORY [facility] Last Admin: 05/03/20 07:19 Dose: 3 ml Documented by: Albuterol/Ipratropium (Duoneb) 3 ml INHALATION Q4H PRN PRN Reason: SHORTNESS OF BREATH Amiodarone HCl (Cordarone) 400 mg PO BID [facility] Last Admin: 05/03/20 10:47 Dose: 400 mg Documented by: Dextrose (D50w) 25 ml IVP ONCE PRN; Protocol PRN Reason: hypoglycemia protocol Dextrose (D50w) 50 ml IVP PRN PRN; Protocol PRN Reason: hypoglycemia protocol Enoxaparin Sodium (Lovenox) 80 mg SUBCUT Q12H [facility] Last Admin: 05/03/20 06:17 Dose: 80 mg Documented by: Furosemide (Lasix) 40 mg IVP Q12H [facility] Last Admin: 05/03/20 03:29 Dose: 40 mg Documented by: Glucagon (Glucagen) 1 mg IM ONCE PRN; Protocol PRN Reason: Adult Acute Hypoglycemia Prot. Dextrose (D5w) 500 mls @ 100 mls/hr IV ONCE PRN; Protocol PRN Reason: Adult Acute Hypoglycemia Prot Sodium Chloride (Sodium Chloride 0.9%) 250 mls @ 250 mls/hr IV ONCE ONE Stop: 05/03/20 10:57 Last Admin: 05/03/20 10:48 Dose: 250 mls/hr Documented by: Insulin Aspart (Novolog) 0 unit SUBCUT TIDWM [facility]; Protocol Last Admin: 05/03/20 07:55 Dose: Not Given Documented by: Lisinopril (Prinivil) 2.5 mg PO DAILY [facility] Last Admin: 05/03/20 10:46 Dose: 2.5 mg Documented by: Pantoprazole Sodium (Protonix) 40 mg PO BID [facility] Last Admin: 05/03/20 09:42 Dose: 40 mg Documented by: Potassium Chloride (Klor-Con 10) 40 meq PO DAILY [facility] Last Admin: 05/03/20 10:47 Dose: 40 meq Documented by: Spironolactone (Aldactone) 25 mg PO DAILY [facility] Last Admin: 05/03/20 10:47 Dose: 25 mg Documented by: Vitals/I&O/Wt Last Vital Signs Temp 96.7 F L 05/04/20 07:27 Pulse 67 05/04/20 10:57 Resp 18 05/04/20 10:57 BP 129/71 05/04/20 10:57 Pulse Ox 96 05/04/20 11:18 05/03/20 05/04/20 05/04/20 22:59 06:59 14:59 Intake Total 200 / 610 240 / 850 240 / 240 Balance 200 / -40 240 / 200 240 / 240 Weight last 48 hrs Weight 84.64 kg Weight 85.321 kg Physical Exam Const: COMMON NORMALS: no acute distress and patient oriented x3 Resp: COMMON NORMALS: normal respiratory effort OTHER: Clear with overall decreased air movement. Cardio: COMMON NORMALS: regular rate, regular rhythm and S2 normal heart sound present RATE: regular rate RHYTHM: regular rhythm HEART SOUNDS: S2 normal heart sound present OTHER: No lower extremity edema, frequent ectopic beats. GI: COMMON NORMALS: Normal to inspection, nondistended, normoactive bowel sounds present, Soft to palpation and non-tender PALPATION: Yes Soft to palpation Neuro: COMMON NORMALS: patient oriented x3 and no focal motor deficits Data : 05/04/20 03:08 05/04/20 03:08 A&P Assessment and plan (1) Acute on chronic respiratory failure with hypoxia and hypercapnia: significant phlegm production.Acute respiratory failure with hypoxia and hypercapnia. Very hypoxic at home. Per and respiratory distress. EMS had to start her on nonrebreather. In ER started on BiPAP support. Received Lasix, empiric antibiotics. Showed significant improvement, during my visit already was transitioned to nonrebreather, and saturating 100%. Rate decreased down to 8 L/min. Requested repeat ABG. Appears to be in congestive heart failure, with pulmonary congestion and edema, elevated BNP. Ordered troponin EKG series to rule out acute ischemia as the cause. Since her mental status now significantly improved, she is able to provide her history. Her daughter is by the bedside corroborating her story. She denies any chest pain or pressure. Got more short of breath over the evening, took inhaler, and subsequently took her sleep medications in preparation closely. Her then noticed she was not breathing right, becoming more short of breath, and respiratory distress, and confused/less responsive. She does report occasionally previously being noticed by her that she does not breathe well. She says that this has improved since she started on sleep medications with Ambien and trazodone. Previously also on Klonopin, but this was discontinued. If sleep apnea is present, some of the pulmonary edema may be explained by this as well. Appears to also have COPD exacerbation with some cough, although is not particularly productive of sputum. There is still also possible underlying pneumonia, with bilateral infiltrates. Possibly atypical. For now will provide empiric coverage with antibiotics. Check rapid flu, COVID-19. Collect sputum for culture if possible. Bacterial antigens. MRSA PCR. Blood culture collected. Appears to have combination respiratory and metabolic acidosis. Possibly sepsis, with lactic acidosis of 4. For COPD exacerbation received a dose of steroids in EMS on the way here. We will continue Solu-Medrol. Continue antibiotics as above. Breathing treatments. Given sinus tachycardia, hypoxic respiratory failure, recent prolonged car trip to a [employer], dicussed with her and daughter that for now until she is stable enough to have chest imaging to exclude PE will be empirically enticoagulated with Lovenox. Discussed risks of bleeding vs risks of untreated PE. Both patient and daughter agreeable at this time. Discussed her condition and further assessment and plan and both verbalized understanding and agreement. All questions answered to their satisfaction. Status: Acute (2) COPD exacerbation: As above. Currently not in exacerbation. Status: Acute (3) Congestive heart failure: Acute systolic heart failure. Suspected secondary to recent type I [place] Status: Acute (4) Insomnia: Takes Ambien, trazodone. Previously also taking Klonopin, says stopped taking this currently. Discussed with her concern of multiple medications used for sleep, which can also affect mental status. Given noticed that when she does not take medications sometimes breathing becomes irregular, discussed would benefit from a sleep study. She and daughter verbalized understanding. Status: Acute (5) Restrictive lung disease: Noted on last PFT, mild pulmonary restriction. Consider additional outpatient follow-up. Status: Acute (6) Metabolic acidosis: Lactic acidosis, LA 4. Difficult to say exact cause. Concern for possible hypoperfusion, perhaps secondary to hypoxia, as well as congestive heart failure. Assessment and treatment as above. Possible severe sepsis secondary to pneumonia, although otherwise has no fever, only dry cough. Reflex lactate not yet resulted. Did receive a fluid bolus on presentation, however, will limit any further fluids given congestive heart failure, pulmonary congestive changes and edema. Status: Acute (7) Respiratory acidosis: COPD exacerbation, suspect perhaps also degree of hypoventilation secondary to sleep medications. As above. Status: Acute (8) Acute kidney injury: Mild acute kidney injury. Creatinine up to 1.1. Possibly secondary to acute CHF. Monitor for now. Does have hyperglycemia is on presentation. Will assess for possible diabetes due to which may be predisposed to CKD. Status: Acute (9) Lactic acid acidosis: As above. Status: Acute (10) Hyperglycemia: Does not have diabetes. On presentation with noted hyperglycemia, glucose 390. Concern for possible undiagnosed diabetes. Did receive a dose of steroid IV on the way to the hospital. We will check A1c. Mild insulin sliding scale added due to severity of hyperglycemia. Consistent carbohydrate diet. For now clear liquids due to respiratory failure. Status: Acute Additional A&P Information Quit smoking 3 months ago. Highly suspected recent acute coronary syndrome. Demand ischemia secondary to CHF felt less likely Hypokalemia Possible sleep apnea: Reports occasionally, prior to starting sleep medications, was having episodes where she would stop breathing at night per her . May benefit from outpatient sleep study. Patient daughter verbalized understanding. PLAN: I am concerned that the patient has some underlying infectious process. Obtain CT scan of the chest and start patient on ceftriaxone. Patient did not qualify for oxygen on 6-minute walk. At this point will discontinue home aspirin at discharge since patient has no evidence of coronary artery disease. Consider adding Plavix Will add Tums. Repeat UA. 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
[2020-05-04] MEDS: ondansetron 2 mg/ML SDV 2 mL 4 MG IVP ×3 (13:53→22:17)
[2020-05-04 14:08] LABS: Add Urine Microscopic? NO
[2020-05-04 14:32] LABS: Bilirubin Urine Neg (NEGATIVE); Blood Urine Neg (Negative); Glucose Urine UA Norm (Normal); Ketones Urine Negative (Negative); Leukocyte Esterase Urine Negative (Negative); Nitrate Urine Negative (Negative); Protein Urine Neg (Negative); Sulfosalicylic Acid Urine Negative (Negative); Urine Appearance Clear (CLEAR); Urine Color Yellow (Yellow); Urobilinogen Urine Norm (Negative); pH Urine 8 (5-7)
[2020-05-04] MEDS: cefTRIAXone 1,000 MG in sodium chloride 0.9% (plus) 50 ML 100 MG IV (14:40)
[2020-05-04 16:36] LABS: Glucose Point of Care 103 mg/dL (70-110)
--- NOTE | 2020-05-04 19:52 | PC.NURSE ---
Received report from SYED Duvall. Patient resting in bed with eyes closed. Patient continues to complain of nausea. Patient stated, I am trying to stay as still as possible so I don't throw up. Patient denies other complaints or needs. No other distresses observed.
[2020-05-04 21:26] LABS: Glucose Point of Care 108 mg/dL (70-110)
[2020-05-05] VITALS (9 sets, daily range): BP systolic 93–113; BP diastolic 53–71; PULSE 65–75; RESP 17–20; TEMP 36.5–36.7; O2SAT 92–97
[2020-05-05] MEDS: cefTRIAXone 1,000 MG in sodium chloride 0.9% (plus) 50 ML 100 MG IV ×2 (00:03→14:44)
[2020-05-05 05:41] LABS: Magnesium 2.3 mg/dL (1.7-2.3)
--- NOTE | 2020-05-05 06:42 | P.PN_ITS ---
Subjective Subjective: Interval history: Patient was not discharged yesterday. She is not really sure why however said she had some nausea and vomiting. She is doing well from a cardiac standpoint. Medications: Reviewed: Yes Vitals/I&O/Wt Last Vital Signs Temp 98.1 F 05/05/20 04:00 Pulse 72 05/05/20 04:50 Resp 18 05/05/20 04:50 BP 93/53 05/05/20 04:00 Pulse Ox 94 05/05/20 04:50 05/04/20 05/04/20 05/05/20 14:59 22:59 06:59 Intake Total 240 / 240 530 / 770 50 / 820 Balance 240 / 240 530 / 770 50 / 820 Weight last 48 hrs Weight 182 lb 9.6 oz Weight 186 lb 9.6 oz Physical Exam Narrative: EXAM NARRATIVE: GENERAL: In general she looks well at rest and is comfortable HEENT: Exam within normal limits. NECK: Supple without jugular vein distention. The carotid upstroke is normal without bruits. BACK: Exam normal. LUNGS: Clear. HEART: Regular rate and rhythm. ABDOMEN: Benign without organomegaly or tenderness. EXTREMITIES: No edema. NEUROLOGIC: Exam normal. SKIN: Unremarkable. Data : 05/04/20 03:08 05/04/20 03:08 A&P Assessment and plan (1) Secondary pulmonary hypertension: Status: Acute (2) Nonischemic cardiomyopathy: Status: Acute (3) Intermittent atrial fibrillation: Status: Acute (4) Acute congestive heart failure: Status: Acute Qualifiers: Heart failure type: unspecified Qualified Code(s): I50.9 - Heart failure, unspecified (5) Hyperglycemia: Status: Acute (6) Acute kidney injury: Status: Acute Additional A&P Information Hopefully she will be able to go home today. Recommendations are as in my note yesterday. Attestations Medical Necessity Statement*: Not applicable Coding Level of Care Code Established Pt Acute Steward/Stewardess Third Class for Corky Tate Patient Type Established History Detailed Exam Detailed Medical Decision Making Moderate Complexity Diagnoses Secondary pulmonary hypertension Nonischemic cardiomyopathy I42.8 Intermittent atrial fibrillation I48.0 Acute congestive heart failure I50.9 Heart failure type: unspecified Hyperglycemia R73.9 Acute kidney injury N17.9
[2020-05-05 06:48] LABS: Glucose Point of Care 105 mg/dL (70-110)
[2020-05-05] MEDS: ipratropium-albuterol 3 mL Neb INHALATION (07:28)
[2020-05-05] MEDS: ondansetron 2 mg/ML SDV 2 mL 4 MG IVP (09:59)
[2020-05-05] MEDS: amiodarone 200 mg Tablet PO (09:59)
[2020-05-05] MEDS: spironolactone 25 mg Tablet PO (09:59)
[2020-05-05] MEDS: FUROsemide 40 mg Tablet PO (10:00)
[2020-05-05] MEDS: calcium carbonate 500 mg Chew Tablet PO (10:00)
[2020-05-05] MEDS: potassium chloride ER 10 mEq Tablet 40 MEQ PO (10:00)
[2020-05-05] MEDS: lisinopril 2.5 mg Tablet PO (10:02)
--- NOTE | 2020-05-05 10:18 | P.PN_ITS ---
Subjective Subjective: Interval history: Patient continues to be nauseous and vomiting. She is convinced that this is because she is not getting her omeprazole. Her forgot to bring omeprazole yesterday and she will contact family today to get this medication so we can try and make sure patient's nausea and vomiting is controlled. She denies shortness of breath or chest pain. From cardiac standpoint she is doing well. She denies abdominal pain or problems with bowel movement. Her last bowel movement was yesterday without evidence of melena and hematochezia. She denies dysuria. She denies cough. Medications: Reviewed: Yes Medication Review Details: Current Medications Albuterol/Ipratropium (Duoneb) 3 ml INHALATION Q4H.RESPIRATORY [facility] Last Admin: 05/03/20 07:19 Dose: 3 ml Documented by: Albuterol/Ipratropium (Duoneb) 3 ml INHALATION Q4H PRN PRN Reason: SHORTNESS OF BREATH Amiodarone HCl (Cordarone) 400 mg PO BID [facility] Last Admin: 05/03/20 10:47 Dose: 400 mg Documented by: Dextrose (D50w) 25 ml IVP ONCE PRN; Protocol PRN Reason: hypoglycemia protocol Dextrose (D50w) 50 ml IVP PRN PRN; Protocol PRN Reason: hypoglycemia protocol Enoxaparin Sodium (Lovenox) 80 mg SUBCUT Q12H [facility] Last Admin: 05/03/20 06:17 Dose: 80 mg Documented by: Furosemide (Lasix) 40 mg IVP Q12H [facility] Last Admin: 05/03/20 03:29 Dose: 40 mg Documented by: Glucagon (Glucagen) 1 mg IM ONCE PRN; Protocol PRN Reason: Adult Acute Hypoglycemia Prot. Dextrose (D5w) 500 mls @ 100 mls/hr IV ONCE PRN; Protocol PRN Reason: Adult Acute Hypoglycemia Prot Sodium Chloride (Sodium Chloride 0.9%) 250 mls @ 250 mls/hr IV ONCE ONE Stop: 05/03/20 10:57 Last Admin: 05/03/20 10:48 Dose: 250 mls/hr Documented by: Insulin Aspart (Novolog) 0 unit SUBCUT TIDWM [facility]; Protocol Last Admin: 05/03/20 07:55 Dose: Not Given Documented by: Lisinopril (Prinivil) 2.5 mg PO DAILY [facility] Last Admin: 05/03/20 10:46 Dose: 2.5 mg Documented by: Pantoprazole Sodium (Protonix) 40 mg PO BID [facility] Last Admin: 05/03/20 09:42 Dose: 40 mg Documented by: Potassium Chloride (Klor-Con 10) 40 meq PO DAILY [facility] Last Admin: 05/03/20 10:47 Dose: 40 meq Documented by: Spironolactone (Aldactone) 25 mg PO DAILY [facility] Last Admin: 05/03/20 10:47 Dose: 25 mg Documented by: Vitals/I&O/Wt Last Vital Signs Temp 97.7 F 05/05/20 08:00 Pulse 75 05/05/20 08:00 Resp 18 05/05/20 08:00 BP 103/59 05/05/20 08:00 Pulse Ox 94 05/05/20 08:00 05/04/20 05/05/20 05/05/20 22:59 06:59 14:59 Intake Total 530 / 770 50 / 820 360 / 360 Balance 530 / 770 50 / 820 360 / 360 Weight last 48 hrs Weight 82.826 kg Weight 84.64 kg Physical Exam Const: COMMON NORMALS: no acute distress and patient oriented x3 Resp: COMMON NORMALS: normal respiratory effort OTHER: Clear with overall decreased air movement. Cardio: COMMON NORMALS: regular rate, regular rhythm and S2 normal heart sound present RATE: regular rate RHYTHM: regular rhythm HEART SOUNDS: S2 normal heart sound present OTHER: No lower extremity edema. GI: COMMON NORMALS: Normal to inspection, nondistended, normoactive bowel sounds present, Soft to palpation and non-tender PALPATION: Yes Soft to palpation Neuro: COMMON NORMALS: patient oriented x3 and no focal motor deficits Data : 05/04/20 03:08 05/04/20 03:08 A&P Assessment and plan (1) Acute on chronic respiratory failure with hypoxia and hypercapnia: significant phlegm production.Acute respiratory failure with hypoxia and hypercapnia. Very hypoxic at home. Per and respiratory distress. EMS had to start her on nonrebreather. In ER started on BiPAP support. Received Lasix, empiric antibiotics. Showed significant improvement, during my visit already was transitioned to nonrebreather, and saturating 100%. Rate decreased down to 8 L/min. Requested repeat ABG. Appears to be in congestive heart failure, with pulmonary congestion and edema, elevated BNP. Ordered troponin EKG series to rule out acute ischemia as the cause. Since her mental status now significantly improved, she is able to provide her history. Her daughter is by the bedside corroborating her story. She denies any chest pain or pressure. Got more short of breath over the evening, took inhaler, and subsequently took her sleep medications in preparation closely. Her then noticed she was not breathing right, becoming more short of breath, and respiratory distress, and confused/less responsive. She does report occasionally previously being noticed by her that she does not breathe well. She says that this has improved since she started on sleep medications with Ambien and trazodone. Previously also on Klonopin, but this was discontinued. If sleep apnea is present, some of the pulmonary edema may be explained by this as well. Appears to also have COPD exacerbation with some cough, although is not particularly productive of sputum. There is still also possible underlying pneumonia, with bilateral infiltrates. Possibly atypical. For now will provide empiric coverage with antibiotics. Check rapid flu, COVID-19. Collect sputum for culture if possible. Bacterial antigens. MRSA PCR. Blood culture collected. Appears to have combination respiratory and metabolic acidosis. Possibly sepsis, with lactic acidosis of 4. For COPD exacerbation received a dose of steroids in EMS on the way here. We will continue Solu-Medrol. Continue antibiotics as above. Breathing treatments. Given sinus tachycardia, hypoxic respiratory failure, recent prolonged car trip to a [employer], dicussed with her and daughter that for now until she is stable enough to have chest imaging to exclude PE will be empirically enticoagulated with Lovenox. Discussed risks of bleeding vs risks of untreated PE. Both patient and daughter agreeable at this time. Discussed her condition and further assessment and plan and both verbalized understanding and agreement. All questions answered to their satisfaction. Status: Acute (2) COPD exacerbation: As above. Currently not in exacerbation. Status: Acute (3) Congestive heart failure: Acute systolic heart failure. Suspected secondary to recent type I [place] Status: Acute (4) Insomnia: Takes Ambien, trazodone. Previously also taking Klonopin, says stopped taking this currently. Discussed with her concern of multiple medications used for sleep, which can also affect mental status. Given noticed that when she does not take medications sometimes breathing becomes irregular, discussed would benefit from a sleep study. She and daughter verbalized understanding. Status: Acute (5) Restrictive lung disease: Noted on last PFT, mild pulmonary restriction. Consider additional outpatient follow-up. Status: Acute (6) Metabolic acidosis: Lactic acidosis, LA 4. Difficult to say exact cause. Concern for possible hypoperfusion, perhaps secondary to hypoxia, as well as congestive heart failure. Assessment and treatment as above. Possible severe sepsis secondary to pneumonia, although otherwise has no fever, only dry cough. Reflex lactate not yet resulted. Did receive a fluid bolus on presentation, however, will limit any further fluids given congestive heart failure, pulmonary congestive changes and edema. Status: Acute (7) Respiratory acidosis: COPD exacerbation, suspect perhaps also degree of hypoventilation secondary to sleep medications. As above. Status: Acute (8) Acute kidney injury: Mild acute kidney injury. Creatinine up to 1.1. Possibly secondary to acute CHF. Monitor for now. Does have hyperglycemia is on presentation. Will assess for possible diabetes due to which may be predisposed to CKD. Status: Acute (9) Lactic acid acidosis: As above. Status: Acute (10) Hyperglycemia: Does not have diabetes. On presentation with noted hyperglycemia, glucose 390. Concern for possible undiagnosed diabetes. Did receive a dose of steroid IV on the way to the hospital. We will check A1c. Mild insulin sliding scale added due to severity of hyperglycemia. Consistent carbohydrate diet. For now clear liquids due to respiratory failure. Status: Acute Additional A&P Information Acute coronary syndrome ruled out. Elevated troponin appears to be related to heart failure induced demand ischemia. Hypokalemia, improved Possible sleep apnea: Reports occasionally, prior to starting sleep medications, was having episodes where she would stop breathing at night per her . May benefit from outpatient sleep study. Patient daughter verbalized understanding. PLAN: Awaiting omeprazole trial when family brings medication and if patient's symptoms get under control we will dismiss patient home later today. We will continue antibiotic for now. Attestations Medical Necessity Statement*: Patient with nausea and vomiting requires close inpatient monitoring and treatment until deemed safe for discharge. 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
--- NOTE | 2020-05-05 15:36 | P.DS_ITS ---
Discharge Providers Date of Admission: 05/01/20 06:27 Date of Discharge: May 05, 2020 Attending Provider at Admission: Guillaume Ramirez Attending Provider at Discharge: Jesse Zimmerman MD Primary Care Provider: Gregory Barksdale Jr, MD Diagnoses at Discharge Discharge Diagnosis (1) Acute on chronic respiratory failure with hypoxia and hypercapnia: Status: Acute (2) COPD exacerbation: Status: Acute (3) Congestive heart failure: Status: Acute Problem details: Acute systolic heart failure. Nonischemic cardiomyopathy. (4) Insomnia: Status: Acute (5) Restrictive lung disease: Status: Acute (6) Metabolic acidosis: Status: Acute (7) Respiratory acidosis: Status: Acute (8) Acute kidney injury: Status: Acute (9) Lactic acid acidosis: Status: Acute (10) Hyperglycemia: Status: Acute (11) Intermittent atrial fibrillation: Status: Acute Reason for Visit Reason for Visit: RESP DISTRESS Hospital Course Hospital Course: Suki Gates is a 69 year old lady with mild restrictive lung disease, insomnia, recently quit smoking, was brought to emergency department for evaluation due to progressive shortness of breath, and subsequently also acute encephalopathy, decreased responsiveness. She reports last night she was feeling more short of breath than usual, and used her inhaler. She reports that she gets wheezing intermittently, although also recently her sleep medications have been changed, and she reports that her tells her that after taking Ambien and trazodone her breathing usually becomes more relaxed at night, and wheezing resolves. She reports that she did so last night also, however, noticed that her breathing actually progressively got worse, and subsequently she had decreased responsiveness, confusion. EMS was called. She was noted to be significantly hypoxic, was started on nonrebreather mask initially, and ER started on BiPAP support. With noted pulmonary edema/scattered infiltrates on chest x-ray. With combined respiratory and metabolic acidosis on ABG. Mild leukocytosis of 12.7. Sinus tachycardia on presentation. She denies any chest pain. She has been having some mild non-productive cough. She says that recently she has been working out in a public gym. She says she would take hours where there would be fewer people. Would wiped out and equipment before hand. Also recently had a long drive to a id returning from a [place]. In ER she was started on BiPAP support, received a dose of IV Lasix, started on empiric antibiotics. She is doing better. Currently weaned down to 10 L on nonrebreather mask. She is awake, alert, oriented, with full insight currently. Discharge Summary: Patient diagnosed with acute systolic heart failure. She further was evaluated with coronary angiogram showing no evidence of coronary artery disease. Her cardiomyopathy felt to be nonischemic. Her EF was 20%. She was well compensated today when discharged. Patient was seen by cardiology and medications were adjusted. Patient will need to have repeat echocardiogram in 3 months prior to follow-up with Dr. Rodriguez to decide about AICD. Patient will be dismissed on anticoagulation. Risks and benefits were discussed and patient agreed to proceed. He was recommended to follow-up with Dr. Park and to consider upper endoscopy/colonoscopy. I will request repeat blood work prior to follow-up with Dr. Park to make sure her hemoglobin and potassium are in good range. She had nausea and vomiting yesterday and today which patient reports having for a long period of time and only responding to omeprazole. No other PPI works. Her family brought omeprazole and patient's symptoms completely resolved and this afternoon she reports feeling much better and wants to go home. Physical Exam Const: COMMON NORMALS: no acute distress and patient oriented x3 Resp: COMMON NORMALS: normal respiratory effort and clear to auscultation bilaterally AUSCULTATION: clear to auscultation bilaterally Cardio: COMMON NORMALS: regular rate, regular rhythm and S2 normal heart sound present RATE: regular rate RHYTHM: regular rhythm HEART SOUNDS: S2 normal heart sound present OTHER: No lower extremity edema GI: COMMON NORMALS: Normal to inspection, nondistended, normoactive bowel sounds present, Soft to palpation and non-tender PALPATION: Yes Soft to palpation Neuro: COMMON NORMALS: patient oriented x3 and no focal motor deficits Discharge Data Data Completed and Pending: Completed Studies During Hospitalization Category Date Time Status CT chest abd pel wo con Routine Cat Scan 05/04/20 12:44 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 Routin e Exams 05/03/20 15:53 Completed XR chest 1V celestino ble [id number] Routine Exams 05/03/20 06:00 Completed XR chest 1V celestino ble [id number] Urgent Exams 05/01/20 01:08 Completed CV echo complete* [id number] Routine Ultrasound 05/02/20 06:27 [place] [id number] Routin e Ultrasound 05/02/20 08:48 Completed Pending at discharge Category Date Time Status Blood Culture Sta t Lab 05/01/20 03:00 Results Sputum Culture an d Gram Stain Routi ne Lab 05/01/20 06:27 Uncollected Labs from last 24 hours 05/05/20 05/05/20 05/04/20 06:34 04:25 20:45 POC Glucose 105 108 Magnesium 2.3 05/04/20 16:22 POC Glucose 103 Magnesium Vitals: Last Vital Signs Temp 97.7 F 05/05/20 08:00 Pulse 68 05/05/20 14:45 Resp 19 H 05/05/20 14:45 BP 113/65 05/05/20 14:45 Pulse Ox 96 05/05/20 14:45 Discharge Plan Discharge Patient Disposition: Home Condition: Stable Prescriptions: New spironolactone 25 mg Tablet 25 mg PO DAILY Qty: 30 RF: 0 potassium chloride 10 mEq Tablet Extended Release 20 meq PO BID Qty: 60 RF: 0 carvedilol [Coreg] 3.125 mg tablet 3.125 mg PO BID Qty: 60 RF: 0 lisinopril 2.5 mg Tablet 2.5 mg PO DAILY Qty: 30 RF: 0 furosemide 40 mg Tablet 40 mg PO DAILY@0800 Qty: 30 RF: 0 amiodarone [Pacerone] 200 mg Tablet 200 mg PO DAILY Qty: 30 RF: 0 Eliquis 5 mg tablet 5 mg PO BID Qty: 60 RF: 0 No Action trazodone 50 mg tablet 50 mg PO BEDTIME RF: 0 lorazepam 0.5 mg tablet 0.5 mg PO PRN (Reason: Anxiety) RF: 0 omeprazole 20 mg capsule,delayed release(DR/EC) 20 mg PO BID RF: 0 zolpidem 10 mg tablet 10 mg PO BEDTIME RF: 0 Discharge Orders: Discharge Order (Routine); Ordered 05/05/20 Ordered By: Jesse Zimmerman Other Ambulatory Orders: Complete Blood Count w/Auto (Routine) Timeframe: 20200508 Location: Determined by Patient Ordered By: Jesse Zimmerman Comprehensive Metabolic Panel (Routine) Timeframe: 20200508 Facility: [facility] - Location: Lab - Main Lab Ordered By: Jesse Zimmerman Referrals: Nisha Rodriguez MD [Physician] - 3 months Gregory Barksdale Jr, MD [Primary Care Provider] - Discharge Diet: Advance as tolerated Discharge Activity: Increase activity as tolerated Patient Instructions: Left Heart Catheterization (DC), Right Heart Catheterization (DC) Activity Restrictions/Additional Instructions: Please call your doctor or present to emergency department if your condition worsens or you develop diarrhea, lightheadedness or see blood in your stool or black stool. Please note that you will be at high risk for bleeding while taking Eliquis for stroke prevention. Please avoid any cuts, bumps or falls as we have discussed. Please discuss with Dr. Barksdale to consider upper endoscopy and colonoscopy if not done recently. Please note that you have repeat lab work to make sure your hemoglobin and potassium are in normal range as medications may need to be adjusted. Please note that you will have to have repeat echocardiogram in 3 months prior to seeing Dr. Rodriguez at cardiology clinic. You will follow-up with nurse practitioner in 7 to 10 days. 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
--- NOTE | 2020-05-05 17:14 | PC.NURSE ---
discharge instructions given and explained.pt verb understanding of instructions.coupon for eliquis given to pt.discharged via w/c to exit at this time
== END 2020-05-05 17:14 | disposition home or self-care (01) | DRG 286 ==
LOC: ER 03:12 → ICU 04:11 → CSU 05-03 12:29
PROVIDERS: Emergency Medicine; Internal Medicine Cardiovascular Disease; Student in an Organized Health Care Education/Training Program; Admitting Provider Internal Medicine; PCP Family Medicine; Visit Provider Internal Medicine
PROC: 4A023N7 Measurement of Cardiac Sampling and Pressure, Left Heart, Percutaneous Approach (ICD-10-PCS; principal; 2020-05-03 16:00)
DX: I50.21 Acute systolic (congestive) heart failure (principal); J18.9 Pneumonia, unspecified organism; J96.22 Acute and chronic respiratory failure with hypercapnia; J96.21 Acute and chronic respiratory failure with hypoxia; E87.2 Acidosis; N17.9 Acute kidney failure, unspecified; J44.1 Chronic obstructive pulmonary disease with (acute) exacerbation; J44.0 Chronic obstructive pulmonary disease with (acute) lower respiratory infection; I48.19 Other persistent atrial fibrillation; G93.40 Encephalopathy, unspecified; I42.8 Other cardiomyopathies; G47.00 Insomnia, unspecified; R73.9 Hyperglycemia, unspecified; Z87.891 Personal history of nicotine dependence
CPT/HCPCS: 12345; 36415; 36416; 36600; 71045; 71250; 74176; 80048; 80053; 81001; 81003; 82803; 82805; 82962; 83036; 83605; 83735; 83880; 84484; 85025; 85610; 87040; 87635; 93005; 93306; 93460; 93970; 94640; 94660; 94664; 96372; 96375; 99283; C1751; C1769; C1887; C1894; J0696; J1644; J1650; J1815; J1940; J2250; J2405; J2543; J2930; J3010; J3370; J3490; J7030; J7050; J7611; Q9967

== ENCOUNTER 2020-05-19 19:07 | Observation (INO) | payer MEDICARE, SELFPAY ==
--- NOTE | 2020-05-19 19:09 | ECG_ITS ---
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 Measurements Intervals [place] Rate: 58 P: 74 GA: 137 QRS: 75 QRSD: 146 T: -85 QT: 469 QTc: 463 Interpretive Statements SINUS BRADYCARDIA LEFT BUNDLE BRANCH BLOCK [120+ ms QRS DURATION, 80+ ms Q/S IN V1/V2, 85+ ms R IN I/aVL/V5/V6] Compared to ECG 05/01/2020 11:38:51 Sinus rhythm no longer present Electronically Signed On 05-20-2020 12:43:31 CDT by Anjana Rodriguez M.D. [id number]
--- NOTE | 2020-05-19 19:09 | XRR_ITS ---
PROCEDURE INFORMATION: Exam: XR Chest, 1 View Exam date and time: 05/19/2020 7:42 PM Age: 69 years old Clinical indication: Chest pain; Additional info: Cp TECHNIQUE: Imaging protocol: XR of the chest Views: 1 view. COMPARISON: CT chest abd pel wo con 05/04/2020 1:04 PM FINDINGS: Lungs: No visible active interstitial or alveolar airspace disease. Evidence of antecedent granulomatous disease Pleural space: Unremarkable. No radiographically visible pleural effusion. No pneumothorax. Heart/Mediastinum: Mild cardiomegaly. Arterial sclerosis. Bones/joints: Unremarkable for age. XR/XR chest 1V portable [id number] IMPRESSION: Nonacute.
[2020-05-19 19:17] VITALS: BP 122/66; PULSE 55; RESP 18; TEMP 36.5; O2SAT 98; BMI 31.8
[2020-05-19 19:34] LABS: Basophils % 0.4 %; Eosinophils # 0.3 10^3/uL (0.0-0.8); Eosinophils % 3.2 %; Hematocrit 39.1 % (37.0-47.0); Hemoglobin 12.1 g/dL (11.5-15.3); Lymphocytes # 1.4 10^3/uL (0.8-4.8); Lymphocytes % 17.4 %; Mean Corpuscular HGB Conc 30.9 g/dL (30.0-36.0); Mean Corpuscular Volume 90.5 fL (81-99); Mean Platelet Volume 10.2 fL (7.4-10.4); Monocytes # 0.6 10^3/uL (0.2-0.9); Monocytes % 7.2 %; Neutrophils # 5.55 10^3/uL (1.8-7.7); Neutrophils % 71.5 %; Nucleated Red Blood Cells % 0 %; Platelet Count 270 10^3/cmm (130-400); Red Blood Count 4.32 10^6/uL (4.1-5.3); Red Cell Distribution Width 13.6 % (12.1-15.1); White Blood Count 7.8 10^3/uL (4.0-10.0)
[2020-05-19 19:53] LABS: Troponin(5th) Baseline 8 ng/L (0-10)
[2020-05-19] MEDS: ondansetron 2 mg/ML SDV 2 mL 4 MG IVP (19:56)
[2020-05-19] MEDS: LORazepam 2 mg/mL INJ 1 mL 0.5 MG IVP (19:57)
[2020-05-19] MEDS: pantoprazole 40 mg SDV IVP (19:58)
[2020-05-19 20:02] LABS: Alanine Aminotransferase 10 U/L (0-33); Albumin Level 4.3 g/dL (3.5-5.2); Alkaline Phosphatase 81 IU/L (35-105); Anion Gap 13.2 (5-19); Aspartate Amino Transferase 14 U/L (0-32); Blood Urea Nitrogen 21 mg/dL (8-23); Calcium 9.7 mg/dL (8.5-10.5); Carbon Dioxide 26 mmol/L (22-29); Chloride 101 mmol/L (98-107); Globulin 2.1 g/dL (1.3-4.6); Glomerular Filtration Rate 37.4 mL/min (90-130); Glucose 100 mg/dL (65-115); Lipase 28 U/L (13-60); NT Pro B Type Natriuretic Pept 626 pg/mL (0-125); Osmolality Calculated 279 mOsm/kg (285-295); Potassium 4.2 mmol/L (3.5-5.1); Sodium 136 mmol/L (136-145); Total Bilirubin 0.6 mg/dL (0.15-1.2); Total Protein 6.4 g/dL (6.6-8.7)
[2020-05-19 20:29] LABS: ABG PH Result 7.41 (7.35-7.45); Arterial Blood Gas Hematocrit 38.8 % (37-47); Blood Gas Allen Test Pos; Blood Gas Sample Site Brachial, left; Blood Gas Sample Type Arterial; HCO3 ABG 24.6 mmol/L (22-26); PO2 ABG 70.2 mmHg (80.0-100.0)
[2020-05-19 20:52] VITALS: BP 122/61; PULSE 60; RESP 18; O2SAT 97
--- NOTE | 2020-05-19 21:09 | ECG_ITS ---
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 Measurements Intervals [place] Rate: 57 P: -12 MA: 140 QRS: 18 QRSD: 137 T: 13 QT: 487 QTc: 476 Interpretive Statements SINUS BRADYCARDIA Left bundle branch block Compared to ECG 05/19/2020 19:27:32 No significant change Electronically Signed On 05-20-2020 12:51:50 CDT by Anjana Rodriguez M.D. [email or web address]/[id number]
[2020-05-19 22:04] LABS: Troponin 5 2HR 11.28 ng/L (0-10); Troponin 5 2HR Delta 3.28 ABS# (0-10)
[2020-05-19 22:11] VITALS: BP 121/64; PULSE 55; RESP 18; O2SAT 97
--- NOTE | 2020-05-19 22:31 | CTR_ITS ---
PROCEDURE INFORMATION: Exam: CT Head Without Contrast Exam date and time: 05/19/2020 10:43 PM Age: 69 years old Clinical indication: Dizziness; Additional info: Dizzy TECHNIQUE: Imaging protocol: Computed tomography of the head without contrast. Radiation optimization: All CT scans at this facility use at least one of these dose optimization techniques: automated exposure control; mA and/or kV adjustment per patient size (includes targeted exams where dose is matched to clinical indication); or iterative reconstruction. COMPARISON: No relevant prior studies available. RADIATION DOSE METRICS: Total DLP (mGy-cm): 858.49 FINDINGS: Brain: No visible evidence of acute intracranial pathologic process or hemorrhage. No evidence for generalized edema or demyelination. No mass effect. No midline shift. No visible evidence of significant small vessel ischemic disease. Ventricles: Normal. No ventriculomegaly. Bones/joints: Unremarkable. No acute fracture. Sinuses: Visualized sinuses are unremarkable. No fluid levels. Mastoid air cells: Visualized mastoid air cells are well aerated. Vasculature: Mild cerebral arterial sclerosis. Soft tissues: Unremarkable. CT/CT head wo con* [id number] IMPRESSION: Nonacute. Radiation Dose CTDIVOL = (mGy): DLP = 858.49 (mGy-cm)
--- NOTE | 2020-05-19 22:32 | CTR_ITS ---
PROCEDURE INFORMATION: Exam: CT Abdomen And Pelvis Without Contrast Exam date and time: 05/19/2020 10:43 PM Age: 69 years old Clinical indication: Vomiting; Prior surgery; Surgery type: Hysterectomy, appy TECHNIQUE: Imaging protocol: Computed tomography of the abdomen and pelvis without contrast. Radiation optimization: All CT scans at this facility use at least one of these dose optimization techniques: automated exposure control; mA and/or kV adjustment per patient size (includes targeted exams where dose is matched to clinical indication); or iterative reconstruction. COMPARISON: CT chest abd pel wo con 05/04/2020 1:04 PM RADIATION DOSE METRICS: Total DLP (mGy-cm): 1111.87 FINDINGS: Mediastinal space: Moderate hiatal hernia. Liver: Normal. No mass. Gallbladder and bile ducts: Normal. No calcified stones. No ductal dilation. Pancreas: Normal. No ductal dilation. Spleen: Normal. No splenomegaly. Adrenals: Normal. No mass. Kidneys and ureters: Normal. No hydronephrosis. Stomach and bowel: Unremarkable. No obstruction. No mucosal thickening. Appendix: No evidence of appendicitis. Intraperitoneal space: Unremarkable. No free air. No significant fluid collection. Vasculature: Unremarkable. No abdominal aortic aneurysm. Lymph nodes: Unremarkable. No enlarged lymph nodes. Bladder: Unremarkable as visualized. Reproductive: Unremarkable as visualized. Bones/joints: Unremarkable. No acute fracture. Soft tissues: Unremarkable. CT/CT abdomen pelvis wo con [id number] IMPRESSION: 1. Negative for focal acute inflammatory process. 2. Moderate hiatal hernia. Radiation Dose CTDIVOL = (mGy): DLP = 1111.87 (mGy-cm)
--- NOTE | 2020-05-19 22:36 | W.ED.CHESTPA ---
HPI - Chest Pain General: Chief Complaint: Chest Pain Stated Complaint: n/v, cp Time Seen by Provider: 05/19/20 19:19 History of Present Illness: HPI narrative: 69-year-old female recently diagnosed with nonischemic cardiomyopathy with an EF of 20%. She presents with essentially 24 hours of a funny feeling in her left lower chest. She today developed some nausea and vomiting. She is vomited multiple times at home. She is vomited a few times since being here. She is not overly short of breath. No fever. No cough. She complains of significant dizziness as well. When asked if this is a room spinning type of dizziness, she says a little, but mainly a feeling of she is going to fall or pass out. MD complaint: chest discomfort Pertinent past history: other (chf) Onset (ago): hour(s) Timing of current episode: episodic Prior episodes: Yes Onset: during rest Pain location: left chest Pain radiation: none Quality: tightness Exacerbating factors: nothing Associated symptoms: Reports nausea and vomiting; Deny dyspnea, fever(s), leg edema or palpitations Review of Systems Const: Denies: fever(s) Eyes: Denies: blurry vision ENMT: Denies: swelling of lips/tongue or post nasal drip Card: Reports: chest pain and dyspnea on exertion; Denies: palpitations, irregular heart rhythm, edema or swelling of feet/ankles Resp: Denies: dyspnea, productive cough, non-productive cough or wheezing GI: Reports: nausea and vomiting : Denies: dysuria or hematuria Musc: Denies: neck pain or back pain Skin/Breast: Denies: rash or erythema Neuro: Reports: dizziness; Denies: headache(s), vertigo, confusion or seizure-like activity Psych: Denies: anxiety PFSH ED PFSH: Medical History (Updated 05/20/20 @ 00:29 by Dread Buenrostro DO) Acute congestive heart failure Former smoker Insomnia Intermittent atrial fibrillation Nonischemic cardiomyopathy Ejection fraction 20% Restrictive lung disease Secondary pulmonary hypertension Surgical History History of colonoscopy Family History Mother Congestive heart failure Social History Smoking and tobacco status: former smoker Quit status (tobacco): has quit using tobacco Former quit date comment: 3 months ago Alcohol intake: never Lives independently: Yes Household members: spouse Marital status: Current occupational status: retired Physical Exam Const: GENERAL APPEARANCE: well developed ORIENTATION/CONSCIOUSNESS: Yes oriented to person, Yes oriented to place and Yes oriented to time HENMT: COMMON NORMALS: normocephalic, external ears normal and Normal external nose present HEAD & SCALP: normocephalic FACE & SINUS: normal facial exam NOSE: Normal external nose present and No nasal discharge present EXTERNAL EAR: Yes external ears normal THROAT: posterior oropharynx normal; no peritonsillar mass Eye: COMMON NORMALS: Equal, round and reactive pupils present, EOMs intact bilaterally and conjunctivae normal EYELID: eyelids normal CONJUNCTIVA: Yes conjunctivae normal PUPIL: Yes Equal, round and reactive pupils present Neck/C-Spine: GENERAL: No tracheal deviation Chest: COMMONS NORMALS: normal inspection of the chest CHEST: No tenderness Resp: COMMON NORMALS: clear to auscultation bilaterally EFFORT & INSPECTION: No tachypneic, No respiratory distress, No retractions, No uses accessory muscles and No tracheal deviation AUSCULTATION: clear to auscultation bilaterally, no rhonchi, no wheezes and lung sounds not diminished Cardio: COMMON NORMALS: regular rate and regular rhythm RATE: regular rate and bradycardic RHYTHM: regular rhythm HEART SOUNDS: no murmurs PERIPHERAL PULSES: radial pulses present GI: INSPECTION: No abdominal distension AUSCULTATION: No Hyperactive bowel sounds present and No Hypoactive bowel sounds present PALPATION: No Guarding due to palpation present (GI) and No Rigid due to palpation PERCUSSION: no dullness to percussion and no tympanic to percussion Neuro: SENSORIUM/ORIENTATION: Yes oriented to person, Yes oriented to place and Yes oriented to time Psych: COMMON NORMALS: mental status grossly normal Skin: COMMON NORMALS: no rashes or lesions noted GENERAL SKIN EXAM: no rashes or lesions noted Course Consultations: Consultation #1: Tate Vital Signs: Vital signs: Vital Signs Temperature 97.7 F 05/19/20 19:17 Pulse Rate 0 L 05/20/20 00:03 Respiratory Rate 18 05/20/20 00:03 Blood Pressure 121/84 05/20/20 00:03 Pulse Oximetry 96 05/20/20 00:03 MDM - Chest Pain MDM Narrative: Medical decision making narrative: Multiple episodes of vomiting despite on aspirin, Ativan, and Protonix IV here. Her EKG does not reveal acute ST changes. Her troponin is not significantly elevated. It did is slightly higher at 2 hours. Her BNP is 600, which is quite good for a lady with an EF of 20% by history. She has no findings of pulmonary edema on chest x-ray. CT of the head, done for dizziness is nonacute. CT of the abdomen and pelvis is nonacute as well in terms of the vomiting. She will be observed overnight. Her creatinine is a little worse today. Lab Data: Labs: Lab Results 05/19/20 05/19/20 05/19/20 Range/Units 19:20 19:20 19:20 WBC 7.8 (4.0-10.0) 10^3/ uL RBC 4.32 (4.1-5.3) 10^6/u L Hgb 12.1 (11.5-15.3) g/dL Hct 39.1 (37.0-47.0) % MCV 90.5 (81-99) fL MCH 28.0 (28.0-34.0) pg MCHC 30.9 (30.0-36.0) g/dL RDW 13.6 (12.1-15.1) % Plt Count 270 (130-400) 10^3/c mm MPV 10.2 (7.4-10.4) fL Neut % (Auto) 71.5 % Lymph % (Auto) 17.4 % Cuming % (Auto) 7.2 % Eos % (Auto) 3.2 % Baso % (Auto) 0.4 % Neut # (Auto) 5.55 (1.8-7.7) 10^3/u L Lymph # (Auto) 1.4 (0.8-4.8) 10^3/u L Cuming # (Auto) 0.6 (0.2-0.9) 10^3/u L Eos # (Auto) 0.3 (0.0-0.8) 10^3/u L Baso # (Auto) 0.0 (0.0-0.1) 10^3/u L Nucleated RBC % (a uto) 0 % Nucleated RBCs # 0.0 /100WBC Specimen Type Sample Site ABG pH (7.35-7.45) ABG pCO2 (35-45) mmHg ABG pO2 (80.0-100.0) mmH g ABG HCO3 (22-26) mmol/L ABG Base Excess (-2.0-2.0) mmol/ L Jhony Test Hematocrit (37-47) % O2 Delivery Device FiO2 % Classroom Assistant ID Sodium 136 (136-145) mmol/L Potassium 4.2 (3.5-5.1) mmol/L Chloride 101 (98-107) mmol/L Carbon Dioxide 26 (22-29) mmol/L Anion Gap 13.2 (5-19) BUN 21 (8-23) mg/dL Creatinine 1.4 H (0.5-0.9) mg/dL GFR Calculation 37.4 L (90-130) mL/min Glucose 100 (65-115) mg/dL Calculated Osmolal ity 279 L (285-295) mOsm/k g Calcium 9.7 (8.5-10.5) mg/dL Total Bilirubin 0.6 (0.15-1.2) mg/dL AST 14 (0-32) U/L ALT 10 (0-33) U/L Alkaline Phosphata se 81 (35-105) IU/L Troponin T Baselin e 8 (0-10) ng/L Troponin T 120 Min [place] (0-10) ng/L Delta Troponin T (0-10) ABS# NT-Pro-B Natriuret Pep 626 H (0-125) pg/mL Total Protein 6.4 L (6.6-8.7) g/dL Albumin 4.3 (3.5-5.2) g/dL Globulin 2.1 (1.3-4.6) g/dL Lipase 28 (13-60) U/L 05/19/20 05/19/20 Range/Units 20:20 21:20 WBC (4.0-10.0) 10^3/ uL RBC (4.1-5.3) 10^6/u L Hgb (11.5-15.3) g/dL Hct (37.0-47.0) % MCV (81-99) fL MCH (28.0-34.0) pg MCHC (30.0-36.0) g/dL RDW (12.1-15.1) % Plt Count (130-400) 10^3/c mm MPV (7.4-10.4) fL Neut % (Auto) % Lymph % (Auto) % Cuming % (Auto) % Eos % (Auto) % Baso % (Auto) % Neut # (Auto) (1.8-7.7) 10^3/u L Lymph # (Auto) (0.8-4.8) 10^3/u L Cuming # (Auto) (0.2-0.9) 10^3/u L Eos # (Auto) (0.0-0.8) 10^3/u L Baso # (Auto) (0.0-0.1) 10^3/u L Nucleated RBC % (a uto) % Nucleated RBCs # /100WBC Specimen Type Arterial Sample Site Brachial, left ABG pH 7.41 (7.35-7.45) ABG pCO2 39.0 (35-45) mmHg ABG pO2 70.2 L (80.0-100.0) mmH g ABG HCO3 24.6 (22-26) mmol/L ABG Base Excess 0.0 (-2.0-2.0) mmol/ L Jhony Test Pos Hematocrit 38.8 (37-47) % O2 Delivery Device None FiO2 21.0 % Classroom Assistant ID [id number] Sodium (136-145) mmol/L Potassium (3.5-5.1) mmol/L Chloride (98-107) mmol/L Carbon Dioxide (22-29) mmol/L Anion Gap (5-19) BUN (8-23) mg/dL Creatinine (0.5-0.9) mg/dL GFR Calculation (90-130) mL/min Glucose (65-115) mg/dL Calculated Osmolal ity (285-295) mOsm/k g Calcium (8.5-10.5) mg/dL Total Bilirubin (0.15-1.2) mg/dL AST (0-32) U/L ALT (0-33) U/L Alkaline Phosphata se (35-105) IU/L Troponin T Baselin e (0-10) ng/L Troponin T 120 Min [place] 11.28 H (0-10) ng/L Delta Troponin T 3.28 (0-10) ABS# NT-Pro-B Natriuret Pep (0-125) pg/mL Total Protein (6.6-8.7) g/dL Albumin (3.5-5.2) g/dL Globulin (1.3-4.6) g/dL Lipase (13-60) U/L Discharge Plan Discharge Patient Disposition: Placed in Observation Admit Provider: Tim Ybarra Clinical Impression: Dizziness Intractable vomiting Qualifiers: Vomiting type: unspecified Nausea presence: with nausea Qualified Code(s): R11.2 - Nausea with vomiting, unspecified Chest pain Qualifiers: Chest pain type: unspecified Qualified Code(s): R07.9 - Chest pain, unspecified Condition: Stable Discharge Date/Time: 05/20/20 00:27 Coding Level of Care Code ED Hand Candy Cutter for Corky Fwd Exam Comprehensive
[2020-05-19] MEDS: sodium chloride 0.9% 1,000 ML 50 ML IV (22:46)
--- NOTE | 2020-05-19 23:19 | PM.HP ---
Providers/Chief Complaint Primary Care Provider: Gregory Barksdale Jr, MD Chief Complaint: n/v, cp History of Present Illness Suki Gates is a 69 year old female that presents to the emergency department, with complaints of vomiting today. She has been somewhat dizzy the last day as well. She has had multiple episodes of vomiting that is not been able to keep p.o. down. Closing her eyes helps the sensation of dizziness. She does not think the room feels like it is spinning. No significant headache. She states she has been nauseated since her discharge from the hospital on May 05. At that time she was diagnosed with a nonischemic cardiomyopathy, EF was 20%. Angiogram demonstrated no significant flow-limiting coronary disease. She has had some vague left upper quadrant discomfort. She has had no significant shortness of breath. She denies any syncope, head injury. She states she has been taking her new medications as prescribed. She was diagnosed with paroxysmal atrial fibrillation at that time and amiodarone was initiated along with apixaban, Aldactone, carvedilol, potassium, lisinopril as new medications. She denies any fever, COVID exposure. No dysuria. From my understanding, a defibrillator is also being considered. Review of Systems General: Reports: 10 or more systems reviewed and unremarkable except in HPI and below Const: Denies: fever(s) or chills Eyes: Denies: change in vision ENMT: Denies: throat pain Card: Denies: chest pain Resp: Denies: dyspnea GI: Reports: nausea and vomiting; Denies: abdominal pain : Denies: flank pain Musc: Denies: neck pain Skin/Breast: Denies: rash Neuro: Denies: headache(s) Psych: Denies: anxiety Endo: Denies: polyuria Max/Lymph: Denies: easy bruising All/Imm: Denies: urticaria Medications/Allergies Home Medications Medication Instructions Recorded Confirmed Last Taken Type lorazepam 0.5 mg PO PRN PRN 05/02/20 05/19/20 Unknown History omeprazole 20 mg PO BID 05/02/20 05/19/20 05/19/20 History trazodone 50 mg PO BEDTIME 05/02/20 05/19/20 Unknown History zolpidem 10 mg PO BEDTIME 05/02/20 05/19/20 05/18/20 History amiodarone [Pacerone] 200 mg PO DAILY #30 tab 05/05/20 05/19/20 05/19/20 Rx apixaban [Eliquis] 5 mg PO BID #60 tab 05/05/20 05/19/20 05/19/20 Rx carvedilol [Coreg] 3.125 mg PO BID #60 tab 05/05/20 05/19/20 05/19/20 Rx lisinopril 2.5 mg PO DAILY #30 tab 05/05/20 05/19/20 05/19/20 Rx potassium chloride 20 meq PO BID #60 tab 05/05/20 05/19/20 05/19/20 Rx spironolactone 25 mg PO DAILY #30 tab 05/05/20 05/19/20 05/19/20 Rx furosemide 20 mg PO DAILY@0800 05/19/20 05/19/20 05/19/20 History Allergies Allergy/AdvReac Type Severity Reaction Status Date / Time No Known Allergies Allergy Verified 05/19/20 19:45 PFSH Acute PFSH: Medical History (Updated 05/20/20 @ 00:29 by Dread Buenrostro DO) Acute congestive heart failure Former smoker Insomnia Intermittent atrial fibrillation Nonischemic cardiomyopathy Ejection fraction 20% Restrictive lung disease Secondary pulmonary hypertension Surgical History History of colonoscopy Family History Mother Congestive heart failure Social History Smoking and tobacco status: former smoker Quit status (tobacco): has quit using tobacco Former quit date comment: 3 months ago Alcohol intake: never Lives independently: Yes Household members: spouse Marital status: Current occupational status: retired Vitals/I&O/Wt Last Vital Signs Temp 97.7 F 05/19/20 19:17 Pulse 55 L 05/19/20 22:11 Resp 18 05/19/20 22:11 BP 121/64 05/19/20 22:11 Pulse Ox 97 05/19/20 22:11 Weight last 48 hrs Weight 81.647 kg Physical Exam Narrative: EXAM NARRATIVE: General exam is a white female, in no apparent distress reporting she has some nausea. HEENT: Pupils equally round. No vertical nystagmus. Oropharynx clear and tongue midline Neck is supple no lymphadenopathy or thyromegaly Cardiovascular regular rate and rhythm without murmur, no S3 or S4. Heart sounds distant Lungs clear no wheezing or crackles Abdomen is soft with positive bowel sounds. No obvious organomegaly. No tenderness. was deferred Extremities no cyanosis clubbing nor edema, cap refill brisk Skin no rash Neuro no obvious focal deficit. Cerebellar function intact. Data : 05/20/20 01:45 05/20/20 01:45 Other data: EKG demonstrates a rate of 58, normal axis, sinus bradycardia, left bundle branch block Head and abdominal CT have been ordered and pending Chest x-ray no infiltrate ABG demonstrates a pH 7.4, PCO2 39, PO2 70. Initial troponin VIII with repeat 11.2. BNP 626 Lipase normal. LFTs normal. Urinalysis has been ordered Recent COVID 05/01 negative A&P Assessment and plan (1) Intractable vomiting: Observation stay. Secondary to vomiting associated with dizziness will check CT head noncontrast. The emergency physician also believes a CT abdomen should be repeated secondary to her history of large hiatal hernia in case malrotation has occurred. The studies are pending. I am concerned that her intractable vomiting, and nausea that started with addition of medications last hospital stay may be secondary to new medication. Amiodarone is a possibility. At this point we will hold this medication pending further evaluation. Urinalysis will also need to be done, to exclude UTI. Status: Acute (2) Acute kidney injury: Secondary to mild dehydration. Hold diuretics, lisinopril currently Cautious hydration at 50 cc an hour overnight with reevaluation in the morning Status: Acute (3) Dizziness: See notations above in regards to intractable vomiting Status: Acute Additional A&P Information Nonischemic cardiomyopathy, with EF of 20%. Cardiology on last visit was contemplating defibrillator at some point. Continue carvedilol. Likely restart MARY inhibitor when renal function improves. Consider restart of Aldactone as renal function improves. Paroxysmal atrial fibrillation. Continue carvedilol. At this point as nausea could be secondary to amiodarone will hold. Check TSH, MAgnesium. Currently in sinus History of restrictive lung disease, with secondary pulmonary hypertension Former tobacco use Eliquis will suffice for DVT prophylaxis Full code Attestations Medical Necessity Statement*: Will need less than 2 midnight stay for evaluation and treatment of intractable nausea and vomiting. Time Spent in Patient Care: Greater than 35 minutes Coding Level of Care Code Acute Diploma Pharmacy Technician for Chg Fwd Diagnoses Intractable vomiting R11.10 Acute kidney injury N17.9 Dizziness R42
[2020-05-19 23:29] VITALS: BP 121/64; PULSE 54; O2SAT 99
[2020-05-20] VITALS (11 sets, daily range): BP systolic 91–130; BP diastolic 42–84; PULSE 0–64; RESP 13–22; TEMP 36.6–36.8; O2SAT 55–100
--- NOTE | 2020-05-20 01:09 | ECG_ITS ---
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 Measurements Intervals [place] Rate: 62 P: 81 KS: 142 QRS: 40 QRSD: 79 T: 85 QT: 453 QTc: 461 Interpretive Statements SINUS RHYTHM WITH FREQUENT VENTRICULAR PREMATURE COMPLEXES LOW QRS VOLTAGE IN PRECORDIAL LEADS MODERATE T-WAVE ABNORMALITY, CONSIDER ANTERIOR ISCHEMIA Compared to ECG 05/19/2020 21:15:44 Ventricular premature complex(es) now present Low QRS voltage now present T-wave abnormality now present Possible ischemia now present Sinus bradycardia no longer present Intraventricular conduction delay no longer present Myocardial infarct finding no longer present Electronically Signed On 05-20-2020 12:49:51 CDT by Anjana Rodriguez M.D. [email or web address]
[2020-05-20 02:18] LABS: Basophils % 0.3 %; Eosinophils # 0.1 10^3/uL (0.0-0.8); Eosinophils % 2.1 %; Hematocrit 35.4 % (37.0-47.0); Hemoglobin 10.9 g/dL (11.5-15.3); Lymphocytes # 1.2 10^3/uL (0.8-4.8); Lymphocytes % 20.2 %; Mean Corpuscular HGB Conc 30.8 g/dL (30.0-36.0); Mean Corpuscular Hemoglobin 27.5 pg (28.0-34.0); Mean Corpuscular Volume 89.4 fL (81-99); Mean Platelet Volume 10.5 fL (7.4-10.4); Monocytes # 0.5 10^3/uL (0.2-0.9); Monocytes % 7.7 %; Neutrophils # 4.08 10^3/uL (1.8-7.7); Neutrophils % 69.7 %; Nucleated Red Blood Cells % 0 %; Platelet Count 237 10^3/cmm (130-400); Red Blood Count 3.96 10^6/uL (4.1-5.3); Red Cell Distribution Width 13.6 % (12.1-15.1); White Blood Count 5.9 10^3/uL (4.0-10.0)
[2020-05-20 02:35] LABS: Alanine Aminotransferase 9 U/L (0-33); Albumin Level 3.7 g/dL (3.5-5.2); Alkaline Phosphatase 66 IU/L (35-105); Anion Gap 11.4 (5-19); Aspartate Amino Transferase 10 U/L (0-32); Blood Urea Nitrogen 21 mg/dL (8-23); Calcium 8.7 mg/dL (8.5-10.5); Carbon Dioxide 26 mmol/L (22-29); Chloride 105 mmol/L (98-107); Glomerular Filtration Rate 37.4 mL/min (90-130); Glucose 109 mg/dL (65-115); Osmolality Calculated 283 mOsm/kg (285-295); Potassium 4.4 mmol/L (3.5-5.1); Sodium 138 mmol/L (136-145); Total Bilirubin 0.7 mg/dL (0.15-1.2); Total Protein 5.7 g/dL (6.6-8.7)
[2020-05-20 02:38] LABS: Troponin 5 6HR 10.73 ng/L (0-10); Troponin 5 6HR Delta 2.73 ng/L (0-12)
[2020-05-20 02:45] LABS: Magnesium 2.1 mg/dL (1.7-2.3); Thyroid Stimulating Hormone 2.88 uIU/mL (0.27-4.20)
[2020-05-20] MEDS: pantoprazole DR 40 mg Tablet PO (09:25)
[2020-05-20] MEDS: apixaban 5 mg Tablet PO ×2 (09:25→18:15)
[2020-05-20] MEDS: carvedilol 3.125 mg Tablet PO ×2 (09:25→18:15)
[2020-05-20 09:45] LABS: Add Urine Microscopic? NO
[2020-05-20 09:52] LABS: Bilirubin Urine Neg (NEGATIVE); Blood Urine Neg (Negative); Glucose Urine UA Norm (Normal); Ketones Urine Negative (Negative); Leukocyte Esterase Urine Negative (Negative); Nitrate Urine Negative (Negative); Protein Urine Neg (Negative); Specific Gravity, Urine 1.015 (1.005-1.030); Urine Appearance Clear (CLEAR); Urine Color Yellow (Yellow); Urobilinogen Urine 1 mg/dL (Negative); pH Urine 6 (5-7)
--- NOTE | 2020-05-20 16:13 | PC.CHAP ---
Pastoral Care Encounter/Spiritual Assessment Type of Contact [] Declined marine propulsion technician visit [] Patient/Family/Request visit [] Outpatient visit [] Follow-up visit [] Physician referral [] Code/Alert [X] Routine visit [] Staff referral [] Actively dying [] Patient sleeping [] Family support [] [] Out of room [] Palliative care [] [] Receiving care in room [] Pre-surgical visit [] Trauma [] Long length of stay [] ICU visit [] Other: Relational/Emotional Strength [] Patient feels connected with others/family/visitors/staff [] Distress [] Loneliness/isolation [] Abandonment Spirituality of Patient [] Person of Meghana [] Attends Zoroastrian of their Meghana [] Believes in Prayer [] Reads Bible or Rastafarian materials [] There are Spiritual issues to be addressed Social Media Marketing Manager Interventions [] Prayer [] Active listening [] Non-anxious presence [] Spiritual/emotional support [] Crisis/trauma care [] Spiritual counseling [] Bereavement support [] Provided bereavement packet [] Provided Bible/devotional materials [] Provided toy/stuffed animal, coloring book to patient or family member [] Provided Communion [] Anointing/[place] [] Salvation [] Completed spiritual assessment [] Other: Impact on Illness or Injury [] Angry [] Fearful [] Anxious [] Often cries [] Exhaustion [] Unable to work [] Unable to attend jew [] Unable to walk/stand [] Unable to read [] Unable to drive [] Unable to eat/drink [] Unable to sleep [] Unable to be with family [] Patient intubated [] Other: Summary Time spent with patient
--- NOTE | 2020-05-20 16:14 | PC.CHAP ---
Pastoral Care Encounter/Spiritual Assessment Type of Contact [] Declined body and fender mechanic apprentice visit [] Patient/Family/Request visit [] Outpatient visit [] Follow-up visit [] Physician referral [] Code/Alert [X] Routine visit [] Staff referral [] Actively dying [] Patient sleeping [] Family support [] [] Out of room [] Palliative care [] [] Receiving care in room [] Pre-surgical visit [] Trauma [] Long length of stay [] ICU visit [] Other: Relational/Emotional Strength [] Patient feels connected with others/family/visitors/staff [] Distress [] Loneliness/isolation [] Abandonment Spirituality of Patient [] Person of Meghana [] Attends Buddhist of their Meghana [] Believes in Prayer [] Reads Bible or Roman Catholic materials [] There are Spiritual issues to be addressed Tube Maker Interventions [] Prayer [] Active listening [] Non-anxious presence [] Spiritual/emotional support [] Crisis/trauma care [] Spiritual counseling [] Bereavement support [] Provided bereavement packet [] Provided Bible/devotional materials [] Provided toy/stuffed animal, coloring book to patient or family member [] Provided Communion [] Anointing/[place] [] Salvation [] Completed spiritual assessment [] Other: Impact on Illness or Injury [] Angry [] Fearful [] Anxious [] Often cries [] Exhaustion [] Unable to work [] Unable to attend zoroastrian [] Unable to walk/stand [] Unable to read [] Unable to drive [] Unable to eat/drink [] Unable to sleep [] Unable to be with family [] Patient intubated [] Other: Summary Time spent with patient
--- NOTE | 2020-05-20 16:14 | PC.CHAP ---
Pastoral Care Encounter/Spiritual Assessment Type of Contact [] Declined neon sign installer visit [] Patient/Family/Request visit [] Outpatient visit [] Follow-up visit [] Physician referral [] Code/Alert [X] Routine visit [] Staff referral [] Actively dying [] Patient sleeping [] Family support [] [] Out of room [] Palliative care [] [] Receiving care in room [] Pre-surgical visit [] Trauma [] Long length of stay [] ICU visit [] Other: Relational/Emotional Strength [] Patient feels connected with others/family/visitors/staff [] Distress [] Loneliness/isolation [] Abandonment Spirituality of Patient [] Person of Meghana [] Attends Lutheran of their Meghana [] Believes in Prayer [] Reads Bible or Mandaeism materials [] There are Spiritual issues to be addressed Medical Esthetician Interventions [] Prayer [] Active listening [] Non-anxious presence [] Spiritual/emotional support [] Crisis/trauma care [] Spiritual counseling [] Bereavement support [] Provided bereavement packet [] Provided Bible/devotional materials [] Provided toy/stuffed animal, coloring book to patient or family member [] Provided Communion [] Anointing/[place] [] Salvation [] Completed spiritual assessment [] Other: Impact on Illness or Injury [] Angry [] Fearful [] Anxious [] Often cries [] Exhaustion [] Unable to work [] Unable to attend mandaeism [] Unable to walk/stand [] Unable to read [] Unable to drive [] Unable to eat/drink [] Unable to sleep [] Unable to be with family [] Patient intubated [] Other: Summary Time spent with patient
--- NOTE | 2020-05-20 19:11 | PM.PN ---
Subjective Subjective: Interval history: No acute events. Patient feels asymptomatic overall. Nausea has resolved. No further episodes of emesis. Patient feels well. Multiple PVCs are noted on her telemetry. Patient reports being asymptomatic with these. Heart rate running in the 50s. Medications: Reviewed: Yes Vitals/I&O/Wt Last Vital Signs Temp 98.0 F 05/20/20 15:19 Pulse 63 05/20/20 15:19 Resp 19 H 05/20/20 15:19 BP 125/59 05/20/20 15:19 Pulse Ox 97 05/20/20 15:19 05/20/20 05/20/20 05/20/20 06:59 14:59 22:59 Intake Total 360 / 360 1700 / 0 Balance 360 / 360 1700 / 0 Weight last 48 hrs Weight 88.904 kg Weight 81.647 kg Physical Exam Narrative: EXAM NARRATIVE: GEN: Awake, alert and oriented, no acute distress CVS: S1S2 N RS: CTA B/L Abd: Soft, nt/nd , bs+ COMPUTER EDUCATION PROFESSOR: no focal neuro deficits Data : 05/20/20 01:45 05/20/20 01:45 A&P Assessment and plan (1) Intractable vomiting: CT head without any acute events. CT abdomen shows known moderate hiatal hernia without any acute changes. Continue to hold amiodarone Urinalysis without any evidence of UTI. Status: Acute Qualifiers: Nausea presence: with nausea Vomiting type: unspecified Qualified Code(s): R11.2 - Nausea with vomiting, unspecified (2) Acute kidney injury: Secondary to mild dehydration. Continue to hold spironolactone and lisinopril for now. Cautious hydration at 50 cc an hour overnight. P.o. intake has resumed this afternoon. Can discontinue IV fluids at this time. Status: Acute (3) Dizziness: Now improved. Status: Acute Additional A&P Information Nonischemic cardiomyopathy, with EF of 20%. Cardiology on last visit was contemplating defibrillator after checking echocardiogram at the 3-month [facility]. She is scheduled for the study on June 12.. Continue carvedilol. Likely restart MARY inhibitor when renal function improves. Paroxysmal atrial fibrillation. Currently sinus rhythm with multiple VPCs and APCs. No gross atrial fibrillation or flutter noted. Continue carvedilol. At this point as nausea could be secondary to amiodarone will hold. TSH within range at 2.8 History of restrictive lung disease, with secondary pulmonary hypertension Former tobacco use Eliquis will suffice for DVT prophylaxis Full code Attestations Medical Necessity Statement*: Continued overnight observation for close telemetry monitoring and any signs of decompensation. Coding Level of Care Code Acute Software Quality Assurance Analyst for Chg Fwd Diagnoses Intractable vomiting R11.2 Nausea presence: with nausea Vomiting type: unspecified Acute kidney injury N17.9 Dizziness R42
--- NOTE | 2020-05-20 19:50 | PC.NURSE ---
Patient refusing Trazadone this evening stating, I just do not like taking it.
[2020-05-21 04:00] VITALS: BP 119/49; PULSE 55; RESP 15; TEMP 36.6; O2SAT 97
[2020-05-21] MEDS: apixaban 5 mg Tablet PO (09:52)
[2020-05-21] MEDS: carvedilol 3.125 mg Tablet PO (09:53)
[2020-05-21 11:04] VITALS: BP 100/49; PULSE 53; RESP 16; O2SAT 98
[2020-05-21 11:29] VITALS: BP 100/49; PULSE 55; RESP 13; O2SAT 97
--- NOTE | 2020-05-21 12:08 | P.DS_ITS ---
Discharge Providers Date of Admission: 05/20/20 00:40 Date of Discharge: May 21, 2020 Attending Provider at Admission: Tim Ybarra MD Attending Provider at Discharge: Jamaica Alvarez MD Primary Care Provider: Gregory Barksdale Jr, MD Diagnoses at Discharge Discharge Diagnosis (1) Intractable vomiting: Status: Acute Qualifiers: Nausea presence: with nausea Vomiting type: unspecified Qualified Code(s): R11.2 - Nausea with vomiting, unspecified (2) Acute kidney injury: Status: Acute (3) Dizziness: Status: Acute Reason for Visit Reason for Visit: n/v, cp Hospital Course Discharge Summary: Suki Gates is a 69 year old female that presents to the emergency department, with complaints of vomiting. She has been somewhat dizzy the last day as well. She has had multiple episodes of vomiting that is not been able to keep p.o. down. She had eaten some salad prior to onset of symptoms.she was diagnosed with a nonischemic cardiomyopathy, EF was 20%. Angiogram demonstrated no significant flow-limiting coronary disease. She was diagnosed with paroxysmal atrial fibrillation at that time and amiodarone was initiated along with apixaban, Aldactone, carvedilol, potassium, lisinopril as new medications. She denies any fever, COVID exposure. She was admitted to observation in the [facility] and continued on telemetry monitoring. No acute EKG changes. However note was made of multiple PVCs and APCs. Due to possibility of drug-induced nausea vomiting from newly introduced amiodarone, the drug was held during admission. However her nausea improved pretty quickly therefore uncertain if this truly was the cause. Because of presence of multiple PVCs, and a recent history of atrial fibrillation, and currently heart rate between 50s to 60s in sinus rhythm, amiodarone is being resumed now at a lower dose of 1 00 mg p.o. daily. Should the nausea returned after reinitiation of amiodarone, patient is instructed to hold this drug. At the time of discharge lisinopril is being resumed, spironolactone remains on hold due to blood pressure upon arrival ranging in the range of [address] of the abdomen did not show any acute changes. CT head was unremarkable. She is being discharged with advised to fo llow-up with cardiology in the next week. Above was explained in detail to her daughter Blanca, who is a nurse at a nearby facility. She is scheduled for an echocardiogram on June 12, and my understanding is that she may be considered for an AICD at some point based on results of this echo. On day of discharge patient is feeling well, nausea and vomiting are resolved, she is ambulating the hallway without any signs of discomfort. She is clinically euvolemic. Physical Exam Narrative: EXAM NARRATIVE: GEN: Awake, alert and oriented, no acute distress CVS: S1S2 N RS: CTA B/L Abd: Soft, nt/nd , bs+ DEICER INSPECTOR PNEUMATIC: no focal neuro deficits Discharge Data Data Completed and Pending: Completed Studies During Hospitalization Category Date Time Status CT abdomen pelvis wo con [id number] Urge nt Cat Scan 05/19/20 22:[address] head wo con* 7 [id number] Urgent Cat Scan 05/19/20 22:31 Completed XR chest 1V celestino ble [id number] Stat Exams 05/19/20 19:09 Completed Vitals: Last Vital Signs Temp 97.8 F 05/21/20 04:00 Pulse 55 L 05/21/20 11:29 Resp 13 05/21/20 11:29 BP 100/49 05/21/20 11:29 Pulse Ox 97 05/21/20 11:29 Discharge Plan Discharge Patient Disposition: Home Condition: Stable Prescriptions: Continued trazodone 50 mg tablet 50 mg PO BEDTIME RF: 0 lorazepam 0.5 mg tablet 0.5 mg PO PRN PRN (Reason: Anxiety) RF: 0 omeprazole 20 mg capsule,delayed release(DR/EC) 20 mg PO BID RF: 0 zolpidem 10 mg tablet 10 mg PO BEDTIME RF: 0 potassium chloride 10 mEq Tablet Extended Release 20 meq PO BID Qty: 60 RF: 0 lisinopril 2.5 mg Tablet 2.5 mg PO DAILY Qty: 30 RF: 0 carvedilol [Coreg] 3.125 mg tablet 3.125 mg PO BID Qty: 60 RF: 0 Eliquis 5 mg tablet 5 mg PO BID Qty: 60 RF: 0 furosemide 40 mg tablet 20 mg PO DAILY@0800 RF: 0 Changed Pacerone 200 mg Tablet 100 mg PO DAILY Qty: 30 RF: 0 Discontinued spironolactone 25 mg Tablet 25 mg PO DAILY Qty: 30 RF: 0 Discharge Orders: Discharge Order (Routine); Ordered 05/21/20 Ordered By: Jamaica Alvarez Referrals: Nisha Rodriguez MD [Physician] - 7-10 days ([facility] will contact you to schedule an follow-up appointment with Dr. Rodriguez in 7 to 10 days. If you haven't heard from them by Friday. Please call ) Discharge Diet: Usual diet Discharge Activity: Resume usual activity Patient Instructions: Dilated Cardiomyopathy (DC), CHF Stoplight, Chest Pain Stoplight, Vomiting - Adult Discharge Attestations Time Spent in Discharge Care*: greater than 30 min Quality Metrics Clinical Quality Measures During this hospital stay, did patient experience: None Coding Level of Care Code Acute Inserter Promotional Item for Chg Fwd Diagnoses Intractable vomiting R11.2 Nausea presence: with nausea Vomiting type: unspecified Acute kidney injury N17.9 Dizziness R42
[2020-05-21 14:19] VITALS: BP 141/69; PULSE 58; RESP 18; O2SAT 100
[2020-05-21 14:20] VITALS: BP 141/69; PULSE 58; RESP 18; O2SAT 100
--- NOTE | 2020-05-21 14:42 | PC.NURSE ---
Discharge to home with caregiver Instructed pt to follow-up with her pcp and Dr. Rodriguez as discuss. Educated pt to check her blood pressure and heart rate twice a day at home and keep a record of it due to her taking heart medicines and keep a record to monitor and present to her doctors. Pt verbalizes understanding. Discharge packet provided to pt.
--- NOTE | 2020-05-21 15:53 | PC.NURSE ---
Called Patient via contact phone Talked to Suki Gates on [phone], to let her know that the doctor has a change on her discharge meds. I told her to get her list of discharge papers to note the changes and write it down. Informed her that she needs to decrease her amiodarone from 200 mg to 100 mg daily and Discontinue her Spironolactone as prescribed. She verbalizes understanding and read it back. Pt appreciated the call back and informing her.
== END 2020-05-21 15:42 | disposition home or self-care (01) ==
LOC: ER 19:19 → CSU 05-20 00:29
PROVIDERS: Emergency Medicine; Admitting Provider Internal Medicine; PCP Family Medicine; Visit Provider Student in an Organized Health Care Education/Training Program
DX: R11.10 Vomiting, unspecified (principal); N17.9 Acute kidney failure, unspecified; R42 Dizziness and giddiness; R11.12 Projectile vomiting; Z87.891 Personal history of nicotine dependence; I48.0 Paroxysmal atrial fibrillation; I42.8 Other cardiomyopathies
CPT/HCPCS: 12345; 36415; 36600; 70450; 71045; 74176; 80053; 81003; 82803; 83690; 83735; 83880; 84443; 84484; 85025; 93005; 96360; 96361; 96374; 96375; 99283; 99285; C9113; G0378; J2060; J2405; J7030

== ENCOUNTER 2020-06-06 06:48 | Outpatient (CLI) | payer MEDICARE, SELFPAY ==
--- NOTE | 2020-06-06 07:01 | USCV_ITS ---
Suki Gates Age: 69 Gender: F : 1950 Exam Date: 06/06/2020 07:12 Ordering Phys: Gregory Barksdale MD Technologist: Soraida Hector [place] [facility] [place]: CARDIOMYOPATHY BP: 117 / 71 HR: 58 Rhythm: Sinus Technical Quality: Adequate MEASUREMENTS (Male / Female) Normal Values 2D ECHO LV Diastolic Diameter PLAX 5.8 cm 4.2 - 5.9 / 3.9 - 5.3 cm LV Systolic Diameter PLAX 5.3 cm LV Chamber Size 4.0 cm IVS Diastolic Thickness 1.2 cm 0.6 - 1.0 / 0.6 - 0.9 cm IVS Systolic Thickness 1.1 cm LVPW Diastolic Thickness 1.4 cm 0.6 - 1.0 / 0.6 - 0.9 cm LVPW Systolic Thickness 1.2 cm RV Chamber Size 2.3 cm LVOT Diameter 2.0 cm LV Ejection Fraction 2D Teich 18.6 % LV Ejection Fraction MOD 2C 54.2 % LV Ejection Fraction 2C AL 54.6 % LA Diameter 4.4 cm LA Width 3.3 cm LA Height 3.6 cm RA Width 2.4 cm RA Height 3.9 cm Aorta at Sinotubular Diameter 2.8 cm M-MODE LV Diastolic Diameter MM 6.2 cm 4.2 - 5.9 / 3.9 - 5.3 cm LV Systolic Diameter MM 4.4 cm LV Ejection Fraction MM Teich 53.3 % IVS Diastolic Thickness MM 1.2 cm 0.6 - 1.0 / 0.6 - 0.9 cm IVS Systolic Thickness MM 1.6 cm LVPW Diastolic Thickness MM 1.2 cm 0.6 - 1.0 / 0.6 - 0.9 cm LVPW Systolic Thickness MM 1.5 cm RV Diastolic Diameter MM 1.8 cm Aortic Annulus Diameter 3.5 cm LA Ao Ratio MM 1.3 MV E Point Septal Separation 1.6 cm DOPPLER AV Peak Velocity 124.0 cm/s LVOT Peak Velocity 97.0 cm/s AV Area Cont Eq vti 2.4 cm squared AV Area Cont Eq pk 2.5 cm squared MV Area PHT 3.6 cm squared Mitral E to A Ratio 0.6 MV E' Velocity 3.0 cm/s Mitral E to MV E' Ratio 15.9 Mitral E to LV E' Lateral Ratio 17.4 Mitral E to LV E' Septal Ratio 14.7 TR Peak Velocity 232.1 cm/s TR Peak Gradient 21.5 mmHg TR Mean Velocity 187.7 cm/s TR Mean Gradient 14.8 mmHg TR Velocity Time Integral 75.1 cm TV Peak E Velocity 55.0 cm/s Right Atrial Pressure 3.0 mmHg Pulmonary Artery Systolic Pressu 24.5 mmHg PV Peak Velocity 65.0 cm/s RV Acceleration Time 0.1 s RV Ejection Time 0.4 s RV AcT/ET 0.3 FINDINGS Left Ventricle Normal LV size with redemonstration fraction of 45%. Mild to moderate hypokinesia of the mid and apical septum and anteroseptal segments.Grade I/IV diastolic dysfunction (abnormal relaxation filling pattern), normal to mildly elevated filling pressures. Right Ventricle Normal right ventricular size and systolic function. Right Atrium Normal right atrial size. Left Atrium Mildly increased left atrial size. Mitral Valve Mild mitral annular calcification. Thickened mitral valve. Mild mitral valve regurgitation. Aortic Valve Thickened aortic valve. Tricuspid Valve Mild tricuspid valve regurgitation. Pulmonic Valve Pulmonic valve not well visualized. Pericardium No pericardial effusion. Aorta Normal aortic annulus size. CONCLUSIONS 1. Normal LV size with redemonstration fraction of 45%. Mild to moderate hypokinesia of the mid and apical septum and anteroseptal segments.Grade I/IV diastolic dysfunction (abnormal relaxation filling pattern), normal to mildly elevated filling pressures. 2.Mildly increased left atrial size. 3. Mild mitral annular calcification. Thickened mitral valve. Mild mitral valve regurgitation. 4. Thickened aortic valve. 5. Mild tricuspid valve regurgitation. Estimated pulmonary artery peak systolic pressure of 25 mmHg 6. There is no pericardial effusion. 7. There are no intracardiac masses. Compared to the study from 05/02/2020, there is marked improvement in the LV ejection fraction from 20% to 45%. Dr Nisha Rodriguez MD FAC (Electronically Signed) Final Date: 06 June 2020 18:18 S
== END 2020-06-06 06:49 | disposition home or self-care (01) ==
LOC: RAD 06:49
PROVIDERS: PCP Family Medicine; Visit Provider Family Medicine
DX: I42.9 Cardiomyopathy, unspecified (principal); I08.3 Combined rheumatic disorders of mitral, aortic and tricuspid valves
CPT/HCPCS: 93306

== ENCOUNTER 2020-12-06 10:10 | Outpatient (CLI) | payer MEDICARE, SELFPAY ==
--- NOTE | 2020-12-06 10:20 | MM_ITS ---
WS: [id number] BILATERAL SCREENING DIGITAL MAMMOGRAM WITH CAD HISTORY: SCREENING COMPARISON: 09/13/2019 09/11/2018 Bilateral CC and MLO views submitted. Computer aided detection analyzed. Breast composition: There are scattered areas of fibroglandular density. No suspicious masses, microc alcifications or architectural distortion. Benign calcifications in each breast. MM/[place] [id number] IMPRESSION: BI-RADS: 2-Benign FOLLOW UP: 1 Year Follow-up
== END 2020-12-06 10:11 | disposition home or self-care (01) ==
LOC: RADSHAW 10:13
PROVIDERS: PCP Family Medicine; Visit Provider Family Medicine
DX: Z12.31 Encounter for screening mammogram for malignant neoplasm of breast (principal)
CPT/HCPCS: 77067

== ENCOUNTER 2021-07-02 11:45 | Outpatient (CLI) | payer MEDICARE, SELFPAY ==
[2021-07-02 12:30] VITALS: BP 166/82; PULSE 57; RESP 18; TEMP 36.8; O2SAT 99; BMI 34.5
[2021-07-02 13:05] VITALS: BP 170/75; PULSE 55; RESP 18; O2SAT 99
[2021-07-02 14:00] VITALS: BP 178/92; PULSE 60; RESP 17; TEMP 36.6; O2SAT 99
== END 2021-07-02 11:46 | disposition home or self-care (01) ==
LOC: OPS 11:48
PROVIDERS: PCP Family Medicine; Visit Provider Family Medicine
DX: U07.1 COVID-19 (principal)
CPT/HCPCS: 96365

== ENCOUNTER 2021-07-23 13:21 | Outpatient (CLI) | payer MEDICARE, SELFPAY ==
--- NOTE | 2021-07-23 13:30 | USCV_ITS ---
Suki Gates Age: 71 Gender: F : 1950 Exam Date: 07/23/2021 13:50 Ordering Phys: Nisha Rodriguez MD ([email or web address]) Technologist: Anibal Godinez Exam Location: [facility] – [place] Indication: BP: 132 / 75 HR: 56 Rhythm: Sinus Technical Quality: Adequate MEASUREMENTS (Male / Female) Normal Values 2D ECHO LV Diastolic Diameter PLAX 5.9 cm 4.2 - 5.9 / 3.9 - 5.3 cm LV Systolic Diameter PLAX 3.9 cm IVS Diastolic Thickness 0.9 cm 0.6 - 1.0 / 0.6 - 0.9 cm IVS Systolic Thickness 1.5 cm LVPW Diastolic Thickness 1.2 cm 0.6 - 1.0 / 0.6 - 0.9 cm LVPW Systolic Thickness 1.5 cm LVOT Diameter 2.0 cm LV Ejection Fraction 2D Teich 51.9 % LV Ejection Fraction MOD 2C 58.6 % LV Ejection Fraction 2C AL 59.1 % LA Diameter 3.4 cm LA Width 4.5 cm LA Height 4.8 cm RA Width 3.6 cm RA Height 4.5 cm Aorta at Sinotubular Diameter 2.5 cm M-MODE MV E Point Septal Separation 0.8 cm DOPPLER AV Peak Velocity 149.0 cm/s LVOT Peak Velocity 73.0 cm/s AV Area Cont Eq vti 1.9 cm squared AV Area Cont Eq pk 1.6 cm squared MV Area PHT 5.0 cm squared Mitral E to A Ratio 0.7 MV E' Velocity 38.0 cm/s Mitral E to MV E' Ratio 7.7 Mitral E to LV E' Lateral Ratio 5.9 Mitral E to LV E' Septal Ratio 11.4 TR Peak Velocity 311.0 cm/s TR Peak Gradient 38.7 mmHg TV Peak E Velocity 102.0 cm/s Right Atrial Pressure 3.0 mmHg Pulmonary Artery Systolic Pressu 41.7 mmHg FINDINGS Left Ventricle Normal LV size with a diminished ejection fraction of around 40%. Diffuse hypokinesis of the anterior wall and inferior wall segments.Grade I/IV diastolic dysfunction (abnormal relaxation filling pattern), normal to mildly elevated filling pressures. Right Ventricle The right ventricle is normal in size and function. Right Atrium The right atrium is normal in size. Left Atrium Mildly increased left atrial size. Mitral Valve Thickened mitral valve. Mild mitral annular calcification. Mild mitral valve regurgitation. Aortic Valve Thickened aortic valve. Tricuspid Valve [id number] tricuspid valve regurgitation. Estimated pulmonary artery peak systolic pressure of 39 mmHg Pulmonic Valve Pulmonic valve not well visualized. Pericardium No pericardial effusion. Aorta Normal ascending aorta dimension. CONCLUSIONS Normal LV size with a diminished ejection fraction of around 40%. Diffuse hypokinesis of the anterior wall and inferior wall segments. Grade I/IV diastolic dysfunction (abnormal relaxation filling pattern), normal to mildly elevated filling pressures. Thickened mitral valve. Mild mitral annular calcification. Mild mitral valve regurgitation. Thickened aortic valve. [id number] tricuspid valve regurgitation. Estimated pulmonary artery peak systolic pressure of 39 mmHg. Mildly increased left atrial size. There is no pericardial effusion. There are no intracardiac masses. Compared to the study from 06/06/2020, there may not be a significant change Dr Nisha Rodriguez MD [facility] (Electronically Signed) Final Date: 23 July 2021 17:33 S
== END 2021-07-23 13:22 | disposition home or self-care (01) ==
LOC: RAD 13:25
PROVIDERS: PCP Family Medicine; Visit Provider Internal Medicine Cardiovascular Disease
DX: R06.00 Dyspnea, unspecified (principal); I42.8 Other cardiomyopathies; I08.3 Combined rheumatic disorders of mitral, aortic and tricuspid valves
CPT/HCPCS: 93306

== ENCOUNTER 2022-02-20 10:31 | Outpatient (CLI) | payer MEDICARE, SELFPAY ==
--- NOTE | 2022-02-20 10:40 | XR_ITS ---
WS: [id number] DEXA (DUAL ENERGY X-RAY ABSORPTIOMETRY) Bone mineral density was performed using a [employer] machine. HISTORY: POSTMENOPAUSAL COMPARISON: 09/06/2019 Lumbar spine BMD (L1-L4): 1.027 g/cm2 T score: -1.3 Z score: -0.4 Total hip BMD: Left: 0.815 g/cm2. T score: -1.5 Z score: -0.6 Right: 0.781 g/cm2. T score: -1.8 Z score: -0.9 10 year probability of a major osteoporotic fracture is 13.6%. Compared to the prior study from 09/06/2019. Lumbar spine bone mineral density has decreased by 3.7%. Bilateral hips bone mineral density has decreased by 2.6%. XR/XR DEXA axial skeleton* [id number] IMPRESSION: OSTEOPENIA based upon the WHO classification for females. Significant decrease in bone mineral density since the prior examination in bot h the hips and lumbar spine.
--- NOTE | 2022-02-20 10:40 | MM_ITS ---
WS: [id number] BILATERAL SCREENING DIGITAL BREAST TOMOSYNTHESIS MAMMOGRAM WITH CAD HISTORY: SCREENING COMPARISON: 12/06/2020 and 09/13/2019 Bilateral CC and MLO views with tomosynthesis and synthetic mammography submitted. Computer aided det ection analyzed. Breast composition: The breasts are heterogeneously dense, which may obscure small masses. No suspici ous masses, microcalcifications or architectural distortion. Benign calcifications in each breast. MM/[place] [id number] IMPRESSION: BI-RADS: 2-Benign FOLLOW UP: 1 Year Follow-up
== END 2022-02-20 10:32 | disposition home or self-care (01) ==
LOC: RAD 10:35
PROVIDERS: PCP Family Medicine; Visit Provider Family Medicine
DX: Z12.31 Encounter for screening mammogram for malignant neoplasm of breast (principal); N95.9 Unspecified menopausal and perimenopausal disorder
CPT/HCPCS: 77063; 77067; 77080

== ENCOUNTER → 2022-05-15 11:48 | Outpatient (BNVA) | payer MEDICARE, SELFPAY | PROVIDERS: PCP Family Medicine; Visit Provider Internal Medicine Cardiovascular Disease | DX: I48.0 Paroxysmal atrial fibrillation (principal); R06.00 Dyspnea, unspecified; I42.8 Other cardiomyopathies; R06.02 Shortness of breath; I50.33 Acute on chronic diastolic (congestive) heart failure | CPT/HCPCS: 36415; 80048; 83880; 93005 ==

== ENCOUNTER → 2022-06-19 09:53 | Outpatient (BNVA) | payer MEDICARE, SELFPAY | PROVIDERS: PCP Family Medicine; Visit Provider Nurse Practitioner Family | DX: I11.0 Hypertensive heart disease with heart failure (principal); I50.9 Heart failure, unspecified; I42.8 Other cardiomyopathies; Z87.891 Personal history of nicotine dependence | CPT/HCPCS: 99213; 99214 ==

== ENCOUNTER 2022-08-26 10:03 | Outpatient (CLI) | payer MEDICARE, SELFPAY ==
--- NOTE | 2022-08-26 11:00 | USCV_ITS ---
Suki Gates Age: 72 Gender: F : 1950 Exam Date: 08/26/2022 11:10 Ordering Phys: Nisha Rodriguez MD ([email or web address]) Technologist: Anibal Godinez [place]am [place] [facility] [place] Indication: for ef BP: 145 / 85 HR: 90 Rhythm: Sinus Technical Quality: MEASUREMENTS (Male / Female) Normal Values 2D ECHO LV Diastolic Diameter PLAX 5.1 cm 4.2 - 5.9 / 3.9 - 5.3 cm LV Systolic Diameter PLAX 2.8 cm IVS Diastolic Thickness 1.1 cm 0.6 - 1.0 / 0.6 - 0.9 cm IVS Systolic Thickness 1.3 cm LVPW Diastolic Thickness 1.1 cm 0.6 - 1.0 / 0.6 - 0.9 cm LVPW Systolic Thickness 1.3 cm LVOT Diameter 2.0 cm LV Ejection Fraction 2D Teich 76.7 % LV Ejection Fraction MOD 2C 65.0 % LV Ejection Fraction 2C AL 68.0 % LA Diameter 4.3 cm M-MODE Aortic Annulus Diameter 2.9 cm LA Ao Ratio MM 1.3 MV E Point Septal Separation 1.1 cm FINDINGS Left Ventricle Normal LV size ejection fraction of 55%. Somewhat dyskinetic basal inferior wall segment. My mild concentric left ventricular hypertrophy Right Ventricle Normal right ventricular size and systolic function. Right Atrium Normal right atrial size. Left Atrium Appears to be normal size Mitral Valve Thickened mitral valve. Aortic Valve Thickened aortic valve. Tricuspid Valve No gross abnormalities noted Pulmonic Valve Pulmonic valve not well visualized. Pericardium No pericardial effusion. Aorta Normal aortic annulus size. IVC Inferior vena cava not visualized. CONCLUSIONS Normal LV size ejection fraction of 55%. Somewhat dyskinetic basal inferior wall segment. My mild concentric left ventricular hypertrophy. Thickened aortic and mitral valves. There is no pericardial effusion. There are no intracardiac masses. No similar previous studies are available for comparison Dr Nisha Rodriguez MD [facility] (Electronically Signed) Final Date: 29 August 2022 00:22 S
== END 2022-08-26 10:04 | disposition home or self-care (01) ==
PROVIDERS: PCP Family Medicine; Visit Provider Internal Medicine Cardiovascular Disease
DX: I42.8 Other cardiomyopathies (principal); I08.0 Rheumatic disorders of both mitral and aortic valves
CPT/HCPCS: 93308

== ENCOUNTER → 2022-11-13 09:52 | Outpatient (BNVA) | payer MEDICARE, SELFPAY | PROVIDERS: PCP Family Medicine; Visit Provider Nurse Practitioner Family | DX: I10 Essential (primary) hypertension (principal); I42.8 Other cardiomyopathies; I48.91 Unspecified atrial fibrillation; Z79.01 Long term (current) use of anticoagulants; Z87.891 Personal history of nicotine dependence | CPT/HCPCS: 99214 ==

== ENCOUNTER → 2022-11-29 09:46 | Outpatient (BNVA) | payer MEDICARE, SELFPAY | PROVIDERS: PCP Family Medicine; Visit Provider Internal Medicine Cardiovascular Disease | DX: I13.0 Hypertensive heart and chronic kidney disease with heart failure and stage 1 through stage 4 chronic kidney disease, or unspecified chronic kidney disease (principal); N18.9 Chronic kidney disease, unspecified; N17.9 Acute kidney failure, unspecified; I50.9 Heart failure, unspecified; Z87.891 Personal history of nicotine dependence; Z79.899 Other long term (current) drug therapy; I48.91 Unspecified atrial fibrillation; Z79.01 Long term (current) use of anticoagulants; I42.8 Other cardiomyopathies; J98.4 Other disorders of lung; I27.20 Pulmonary hypertension, unspecified | CPT/HCPCS: 99214 ==

== ENCOUNTER → 2023-04-03 14:23 | Outpatient (BNVA) | payer MEDICARE, SELFPAY | PROVIDERS: PCP Family Medicine; Visit Provider Nurse Practitioner Family | DX: R42 Dizziness and giddiness (principal); I13.0 Hypertensive heart and chronic kidney disease with heart failure and stage 1 through stage 4 chronic kidney disease, or unspecified chronic kidney disease; N18.9 Chronic kidney disease, unspecified; I50.9 Heart failure, unspecified; N17.9 Acute kidney failure, unspecified; I48.0 Paroxysmal atrial fibrillation; Z87.891 Personal history of nicotine dependence; Z79.01 Long term (current) use of anticoagulants; R07.9 Chest pain, unspecified | CPT/HCPCS: 36415; 80048; 83880; 85025; 99214 ==

== ENCOUNTER → 2023-05-13 10:06 | Outpatient (BNVA) | payer MEDICARE, SELFPAY | PROVIDERS: PCP Family Medicine; Visit Provider Internal Medicine Cardiovascular Disease | DX: I11.0 Hypertensive heart disease with heart failure (principal); I50.9 Heart failure, unspecified; Z79.899 Other long term (current) drug therapy; I48.0 Paroxysmal atrial fibrillation; I42.8 Other cardiomyopathies; Z87.891 Personal history of nicotine dependence; Z79.01 Long term (current) use of anticoagulants | CPT/HCPCS: 99214 ==

== ENCOUNTER 2023-07-09 09:47 | Outpatient (CLI) | payer MEDICARE, SELFPAY ==
--- NOTE | 2023-07-09 09:54 | XRR_ITS ---
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 Views: Minimum of 4 views. COMPARISON: CT head wo con* [id number] 05/19/2020 11:06 PM FINDINGS: Sinuses: Well aerated. No opacification. Bones/joints: No fracture. Soft tissues: Unremarkable. XR/XR skull min 4V* [id number] IMPRESSION: Unremarkable.
--- NOTE | 2023-07-09 09:57 | MM_ITS ---
WS: [id number] Bilateral screening 3D tomosynthesis digital mammogram, 07/09/2023 Clinical Data: SCREENING Comparison: 02/20/2022, 12/06/2020, 09/13/2019, 09/11/2018, 09/10/2017, 09/09/2016, 09/06/2015, 08/31/20 14, 08/30/2013, 08/20/2011, 08/15/2009, 08/03/2007, 08/07/2006. Findings: The breast parenchymal pattern shows heterogeneous density. No spiculated masses or clustered calcifi cations are seen. There are no secondary signs of carcinoma. Impression: 1. Negative bilateral mammogram unchanged. 2. Recommend annual screening mammograms. MM/[place] [id number] BIRADS: 1-Negative FOLLOW UP: 1 Year Follow-up The CAD report checker was used.
== END 2023-07-09 09:48 | disposition home or self-care (01) ==
PROVIDERS: PCP Family Medicine; Visit Provider Family Medicine
DX: Z12.31 Encounter for screening mammogram for malignant neoplasm of breast (principal); Q75.9 Congenital malformation of skull and face bones, unspecified
CPT/HCPCS: 70260; 77063; 77067

== ENCOUNTER → 2023-12-25 13:53 | Outpatient (BNVA) | payer MEDICARE, SELFPAY | PROVIDERS: PCP Family Medicine; Visit Provider Internal Medicine Cardiovascular Disease | DX: I11.0 Hypertensive heart disease with heart failure (principal); I50.22 Chronic systolic (congestive) heart failure; I42.8 Other cardiomyopathies; I48.0 Paroxysmal atrial fibrillation; Z79.01 Long term (current) use of anticoagulants; J98.4 Other disorders of lung; Z87.891 Personal history of nicotine dependence | CPT/HCPCS: 99214 ==

== ENCOUNTER → 2024-07-05 09:36 | Outpatient (BNVA) | payer MEDICARE, SELFPAY | PROVIDERS: PCP Family Medicine; Visit Provider Nurse Practitioner Family | DX: I42.8 Other cardiomyopathies (principal); I48.0 Paroxysmal atrial fibrillation; I11.0 Hypertensive heart disease with heart failure; I50.9 Heart failure, unspecified; Z79.01 Long term (current) use of anticoagulants; Z87.891 Personal history of nicotine dependence | CPT/HCPCS: 99214 ==

== ENCOUNTER 2024-08-20 13:50 | Outpatient (CLI) | payer MEDICARE, SELFPAY ==
--- NOTE | 2024-08-20 13:54 | XR_ITS ---
WS: [id number] SCREENING DEXA SCAN [employer] CLINICAL INFORMATION: OSTEOPENIA COMPARISON: 2021 FINDINGS: The L1-L4 bone mineral density measures 0.992 g/cm2. This corresponds to a T score score of -1.6 and Z score of -0.6. Left femoral neck bone mineral density measures 0.772 g/cm2. This corresponds to a T score of -1.9 an d Z score of -0.8. Right femoral neck bone mineral density measures 0.751 g/cm2. This corresponds to a T score -2.0of an d Z score of -1.0. Mean femoral neck bone mineral density measures 0.761 g/cm2. This corresponds to a T score of -2.0 an d Z score of -0.9. XR/XR DEXA axial skeleton* [id number] IMPRESSION: Osteopenia lumbar spine. Osteopenia femoral necks. Patient's FRAX calculated 10 year probability for major osteoporotic fracture i s 15.6% and osteoporotic hip fracture is 4.6%. Bone mineral density lumbar spine decreased -3.4% Bone mineral density femoral necks decreased -4.6%
--- NOTE | 2024-08-20 13:54 | MM_ITS ---
WS: [id number] BILATERAL 3D TOMOSYNTHESIS DIGITAL SCREENING MAMMOGRAPHY WITH CAD CLINICAL INFORMATION: SCREENING HISTORY: Screening mammogram. No current complaints. COMPARISON: 2022 TECHNIQUE: Bilateral CC and MLO views. FINDINGS: Scattered fibroglandular densities bilaterally. No suspicious focal mass, asymmetry, calcifications, or architectural distortion. No evidence of malignancy. Incidental punctate and lucent centered calci fications. Vascular calcification. MM/MM scr tomosynthesis [id number] IMPRESSION: DENSITY: There are scattered areas of fibroglandular density. BI-RADS: 2 - Benign. FOLLOW UP: 1 Year Follow-up Recommend return to annual screening mammography.
== END 2024-08-20 13:51 | disposition home or self-care (01) ==
LOC: RAD 13:50
PROVIDERS: PCP Family Medicine; Visit Provider Family Medicine
DX: Z12.31 Encounter for screening mammogram for malignant neoplasm of breast (principal); Z13.820 Encounter for screening for osteoporosis; M81.0 Age-related osteoporosis without current pathological fracture; R92.323 Mammographic fibroglandular density, bilateral breasts; R92.1 Mammographic calcification found on diagnostic imaging of breast; M85.80 Other specified disorders of bone density and structure, unspecified site
CPT/HCPCS: 77063; 77067; 77080

== ENCOUNTER → 2025-01-06 09:54 | Outpatient (BNVA) | payer MEDICARE, SELFPAY | PROVIDERS: PCP Family Medicine; Visit Provider Internal Medicine Cardiovascular Disease | DX: I48.0 Paroxysmal atrial fibrillation (principal); Z79.01 Long term (current) use of anticoagulants; I11.0 Hypertensive heart disease with heart failure; I50.23 Acute on chronic systolic (congestive) heart failure; Z87.891 Personal history of nicotine dependence; Z79.899 Other long term (current) drug therapy | CPT/HCPCS: 99214 ==

== ENCOUNTER → 2025-06-17 10:19 | Outpatient (BNVA) | payer MEDICARE, SELFPAY | PROVIDERS: PCP Family Medicine; Visit Provider Dermatology | DX: L82.1 Other seborrheic keratosis (principal); L72.0 Epidermal cyst; L81.4 Other melanin hyperpigmentation; L82.0 Inflamed seborrheic keratosis; L53.8 Other specified erythematous conditions; L29.89 Other pruritus; L57.0 Actinic keratosis | CPT/HCPCS: 17000; 17110; 99203 ==

== ENCOUNTER → 2025-07-14 11:14 | Outpatient (BNVA) | payer MEDICARE, SELFPAY | PROVIDERS: PCP Nurse Practitioner Family; Visit Provider Internal Medicine Cardiovascular Disease | DX: I48.0 Paroxysmal atrial fibrillation (principal); Z79.01 Long term (current) use of anticoagulants; I11.0 Hypertensive heart disease with heart failure; I50.20 Unspecified systolic (congestive) heart failure; Z79.899 Other long term (current) drug therapy; I27.20 Pulmonary hypertension, unspecified; Z87.891 Personal history of nicotine dependence | CPT/HCPCS: 99214 ==

== ENCOUNTER → 2025-07-14 11:54 | Outpatient (BNVA) | payer MEDICARE, SELFPAY | PROVIDERS: PCP Nurse Practitioner Family; Visit Provider Internal Medicine Cardiovascular Disease | DX: I47.10 Supraventricular tachycardia, unspecified (principal); I48.0 Paroxysmal atrial fibrillation; R00.1 Bradycardia, unspecified; I49.1 Atrial premature depolarization; I49.3 Ventricular premature depolarization | CPT/HCPCS: 93242 ==

== ENCOUNTER 2025-07-22 11:48 | Outpatient (CLI) | payer MEDICARE, SELFPAY ==
[2025-07-22 12:42] LABS: Alanine Aminotransferase 13 U/L (0-33); Albumin Level 4.2 g/dL (3.5-5.2); Alkaline Phosphatase 79 U/L (35-105); Aspartate Amino Transferase 18 U/L (0-32); Globulin 2.2 g/dL (1.3-4.6); Thyroid Stimulating Hormone 2.14 uIU/mL (0.27-4.20); Total Protein 6.4 g/dL (6.6-8.7)
== END 2025-07-22 11:49 | disposition home or self-care (01) ==
PROVIDERS: PCP Nurse Practitioner Family; Visit Provider Internal Medicine Cardiovascular Disease
DX: E78.5 Hyperlipidemia, unspecified (principal); I48.91 Unspecified atrial fibrillation; N18.9 Chronic kidney disease, unspecified; R07.9 Chest pain, unspecified; R00.1 Bradycardia, unspecified; R93.1 Abnormal findings on diagnostic imaging of heart and coronary circulation; I21.9 Acute myocardial infarction, unspecified
CPT/HCPCS: 36415; 80076; 84443; 93005

== ENCOUNTER 2025-08-23 10:48 | Outpatient (CLI) | payer MEDICARE, SELFPAY ==
--- NOTE | 2025-08-23 10:58 | MM_ITS ---
WS: [id number] BILATERAL 3D TOMOSYNTHESIS DIGITAL SCREENING MAMMOGRAPHY WITH CAD CLINICAL INFORMATION: SCREENING HISTORY: Screening mammogram. No current complaints. COMPARISON: 2023 TECHNIQUE: Bilateral CC and MLO views. FINDINGS: Scattered fibroglandular densities bilaterally. No suspicious focal mass, asymmetry, calcifications, or architectural distortion. No evidence of malignancy. Incidental punctate and lucent centered calcifications. Vascular calcifications. MM/MM scr tomosynthesis [id number] IMPRESSION: DENSITY: There are scattered areas of fibroglandular density. BI-RADS: 2 - Benign. FOLLOW UP: 1 Year Follow-up Recommend return to annual screening mammography.
== END 2025-08-23 10:49 | disposition home or self-care (01) ==
LOC: RAD 10:49
PROVIDERS: PCP Nurse Practitioner Family; Visit Provider Nurse Practitioner Family
DX: Z12.31 Encounter for screening mammogram for malignant neoplasm of breast (principal); R92.323 Mammographic fibroglandular density, bilateral breasts; R92.1 Mammographic calcification found on diagnostic imaging of breast
CPT/HCPCS: 77063; 77067